=== PATIENT | female | born 1980 | race Caucasian/White ===

== ENCOUNTER → 2019-05-10 16:38 | Outpatient (CLI) | payer OTHER, MEDICAID, SELFPAY ==
--- NOTE | 2019-05-10 16:41 | DI.RAD.S_ITS ---
PROCEDURE: XR CERVICAL SPINE 2V OR 3V INDICATIONS: neck pain TECHNIQUE: 3 view(s) of the cervical spine were acquired. COMPARISON: None. FINDINGS: Bones: No fractures or dislocations to the T1 level. The lateral masses of C1 appear intact on the odontoid view. No suspicious bony lesions. Soft tissues: No prevertebral soft tissue swelling. IMPRESSION: Normal for age, source of current numbness and tingling symptoms is not seen. Depending on the clinical status followup by MR scanning may be warranted. Minimal degenerative disc disease is noted at C5-6 and C6-7, comprised of only a very slight degree of disc height reduction. This does not exclude the presence of a disc herniation, however. Dictated by: Theron Greenwood M.D. on 05/10/2019 at 21:08 Approved by: Theron Greenwood M.D. on 05/10/2019 at 21:09
== END ==
PROVIDERS: PCP Family Medicine; Visit Provider Registered Nurse
DX: G89.29 Other chronic pain (principal); M50.322 Other cervical disc degeneration at C5-C6 level; M50.323 Other cervical disc degeneration at C6-C7 level
CPT/HCPCS: 72040

== ENCOUNTER 2019-05-18 12:38 | Observation (INO) | payer OTHER, MEDICAID, SELFPAY ==
[2019-05-18] VITALS (14 sets, daily range): BP systolic 111–137; BP diastolic 69–85; PULSE 65–120; RESP 12–18; TEMP 36.1–37.3; O2SAT 93–100; BMI 31.6
--- NOTE | 2019-05-18 | PATH_ITS ---
[facility] Accession Number: [id number] . 01 Material submitted: . appendix - APPENDIX . 01 Clinical history: . NAUSEA, VOMITING AND RIGHT LOWER ABDOMINAL PAIN . 02 Diagnosis: Appendix, Appendectomy: Severe acute appendicitis with transmural suppurative inflammation and serositis, consistent with perforation. MRV/05/22/2019 . 02 Electronically signed: . Ken Mcfarlane MD, PhD, Pathologist NPI- [id number] . 01 Gross description: . Received in formalin, labeled appendix, is an intact appendix (length-9.2 cm, diameter-up to 1.2 cm) with thomas-christina dull focally exudate covered serosa and mesoappendix (up to 2.7 cm in depth). The resection margin is received stapled. The lumen contains brown solid soft material. The wall is up to 0.2 cm thick. No nodules, masses or lesion are identified. The resection margin is inked black. Section code: (A1) resection margin en face and three additional customer contact representative serial sections; (A2) one-half of the bivalved tip. ([id number]) /MRV . 02 Pathologist provided ICD-10: K35.20 . 02 CPT . 872537 Performed at: 01 [facility] [address], [place], [place] [id number] MD Johnny Cook MD Phone: [phone] Performed at: [address] [facility] [address] [place], [place] [id number] MD Jayshree Barr MD Phone: [phone]
--- NOTE | 2019-05-18 12:54 | ED.ABDPAIN ---
HPI - Abdominal Pain <Guera PringleCONY - Last Filed: 05/18/19 18:30> General Chief Complaint: Abdominal Pain Stated Complaint: NAUSEA VOMTING AND RIGHT LOWER ABDOMINAL PAIN Time Seen by Provider: 05/18/19 12:42 Source: patient Mode of arrival: ambulatory Limitations: no limitations History of Present Illness HPI narrative: 39-year-old female with a history of depression, DDD,, spondylitis, presents emergency department today complaining of right lower quadrant pain starting around midnight last night. She reports associated nausea, vomiting, and a few episodes of diarrhea. She has tried taking Mylanta but was unable to keep that down, she also tried taking meclizine but also vomited afterwards. She reports chills, did not measure her temperature last night. She states the pain is a dull aching constant 8/10 that is worse with palpation and movement. She denies any major abdominal surgeries and states that she still has her appendix. She denies chest pain, shortness of breath, recent illness, sick contacts, dysuria, constipation, syncope, or history of bowel problems. Additionally, she states that her boyfriend has had the same dinner that she has had and is not feeling ill. MD complaint: abdominal pain Onset (ago): hour(s) Pain Consistency: constant Location: RLQ Severity: moderate Quality: aching Radiation: none Migration to: no migration Relieving factors: nothing Exacerbating factors: movement Related Data Home Medications Medication Instructions Recorded Confirmed medroxyprogesterone 150 mg IM [id number] #0 03/07/11 05/18/19 doxepin 10 mg capsule 20 mg PO BEDTIME cap MDD anxiety 05/10/19 05/18/19 duloxetine 60 mg capsule,delayed 60 mg PO DAILY 05/10/19 05/18/19 release mometasone 50 mcg/actuation nasal 2 spray NASAL DAILY 05/10/19 05/18/19 spray topiramate 25 mg tablet 50 mg PO QPM tab 05/10/19 05/18/19 cetirizine 10 mg PO DAILY PRN 05/18/19 05/18/19 cholecalciferol (vitamin D3) 1 tab PO DAILY 05/18/19 05/18/19 [Vitamin D3] cyclobenzaprine 10 mg PO BID PRN 05/18/19 05/18/19 multivitamin 1 tab PO DAILY 05/18/19 05/18/19 Allergies Allergy/AdvReac Type Severity Reaction Status Date / Time red dye Allergy Verified 05/18/19 12:43 Review of Systems <CONY Sanchez - Last Filed: 05/18/19 18:30> Review of Systems REVIEW OF SYSTEMS: GENERAL: Denies fever, chills, malaise, or wt. loss. HENT: No head trauma, sore throat, or dysphagia. EYES: No loss of vision, double vision, eye pain, or irritation. CARDIOVASCULAR: No chest pain, palpitations, or orthopnea. RESPIRATORY: No shortness of breath or cough. GASTROINTESTINAL: Complains of RLQ abdominal pain nausea, and vomiting, see HPI GENITOURINARY: No flank pain, urinary incontinence, hesitancy, frequency, or dysuria. No vaginal discharge or dyspareunia. Denies concerns for STIs MUSCULOSKELETAL: No pain, weakness, or trauma. INTEGUMENTARY: No rash, lesions, or pruritus. NEURO: No numbness, tingling, memory loss, confusion, or headaches. PSYCH: No behavior or mood changes. PFSH <CONY Sanchez - Last Filed: 05/18/19 18:30> Medical History No significant medical problems (Acute) Social History household members: family Smoking Status: Former smoker Social History household members: family Smoking Status: Former smoker Exam <CONY Sanchez - Last Filed: 05/18/19 18:30> Initial Vital Signs Initial Vital Signs: Vital Signs Temperature 97.9 F 05/18/19 12:44 Pulse Rate 97 H 05/18/19 12:44 Respiratory Rate 16 05/18/19 12:44 Blood Pressure 137/78 05/18/19 12:44 Pulse Oximetry 99 05/18/19 12:44 PHYSICAL EXAMINATION: GENERAL: Well groomed, alert, and cooperative. Answers questions promptly and appropriately. Vital signs noted. HENT: Normocephalic, atraumatic. Hearing intact. Oral mucosa is pink and moist. EYES: Conjunctiva pink, sclera white, no periorbital swelling. CARDIOVASCULAR: S1 and S2 sounds normal. Regular rate and rhythm, no murmurs, clicks, or bruits. No pedal edema. RESPIRATORY: Normal respiratory rate, trachea midline, airway patent. No stridor, nasal flaring or accessory muscle use. Lungs are clear in all platt without wheeze, rhonchi, or crackles. GASTROINTESTINAL: Bowel sounds normoactive. Abdomen is soft with significant tenderness to right lower quadrant, and mild tenderness to left lower quadrant. Slight rebound tenderness, pain producing right lower quadrant with tapping of heel. Positive psoas sign. No organomegaly, no palpable masses. GENITALURINARY: No flank tenderness. MUSCULOSKELETAL: Normal gait and coordination. Equal tone and mass bilaterally. EXTREMITIES: CMS intact, no pedal edema. SKIN: Warm, dry, soft, appropriate color for ethnicity. No lesions, rashes, or wounds. NEURO: Alert and Oriented X 3. Good coordination. No ataxia, or sensory deficits, or cognitive issues. PSYCH: Appropriate affect and mood. <Beatriz Anguiano DO - Last Filed: 05/19/19 07:27> Initial Vital Signs Initial Vital Signs: Vital Signs Temperature 97.9 F 05/18/19 12:44 Pulse Rate 97 H 05/18/19 12:44 Respiratory Rate 16 05/18/19 12:44 Blood Pressure 137/78 05/18/19 12:44 Pulse Oximetry 99 05/18/19 12:44 Course <CONY Sanchez - Last Filed: 05/18/19 18:30> Course Narrative: Spoke with radiologist on the phone after he read the CT, surgeon was then immediately consult. I spoke with his nurse around [address] Melton was currently in surgery. Orders Ordered: ED Orders 05/19/19 05:58 Complete Blood Count AUTO DIFF DAILY Hydrocodone Bitart/Acetaminophen ([place] 10/325) 1 tab PO Q4HR PRN PRN Reason: Pain, Moderate (4-6) Last Admin: 05/19/19 05:03 Dose: 1 tab Duloxetine HCl (Cymbalta) 60 mg PO DAILY [facility] Enoxaparin Sodium (Lovenox) 40 mg SUBCUT DAILY [facility] Ibuprofen (Advil) 400 mg PO Q8HR PRN PRN Reason: Pain, Mild (1-3) Mometasone Furoate (Nasonex) 2 spray NASAL DAILY [facility] Morphine Sulfate (Morphine) 2 mg IV Q4HR PRN PRN Reason: Pain, Moderate (4-6) Multivitamins (Tab-A-Marlin) 1 tab PO DAILY [facility] Ondansetron HCl (Zofran) 4 mg IV Q6HR PRN PRN Reason: Nausea And Vomiting Last Admin: 05/19/19 00:44 Dose: 4 mg Topiramate (Topamax) 50 mg PO QPM [facility] Discontinued Medications Acetaminophen (Tylenol) 325 mg PO NOW PRN PRN Reason: Pain, Mild (1-3) Stop: 05/19/19 00:14 Bupivacaine HCl/Epinephrine Bitart (Sensorcaine 0.5% W/ Epi (Pf)) 30 ml INJ NOW ONE Stop: 05/18/19 21:57 Last Admin: 05/18/19 21:57 Dose: 10 ml Cyclobenzaprine HCl (Flexeril) 10 mg PO BID PRN PRN Reason: severe spasms Doxepin HCl (Sinequan) 20 mg PO BEDTIME [facility] Last Admin: 05/19/19 01:05 Dose: Not Given Fentanyl (Sublimaze) 50 mcg IV Q5MIN PRN PRN Reason: Pain, Moderate (4-6) Hydromorphone HCl (Dilaudid) 0.25 mg IV Q5MIN PRN PRN Reason: Pain, Mild (1-3) Sodium Chloride (Normal Saline 0.9%) 1,000 mls @ 150 mls/hr IV CONT [facility] Last Infusion: 05/18/19 17:16 Dose: 150 mls/hr Admin: 05/18/19 13:49 Dose: 150 mls/hr Cefotetan Disodium/Dextrose (Cefotan) 2 gm in 50 mls @ 100 mls/hr IV NOW ONE Stop: 05/18/19 16:00 Last Infusion: 05/18/19 16:33 Dose: 0 mls/hr Admin: 05/18/19 15:48 Dose: 100 mls/hr Lactated Ringer's (Lactated Ringers) 1,000 mls @ 100 mls/hr IV CONT [facility] Last Infusion: 05/18/19 22:47 Dose: 0 mls/hr Admin: 05/18/19 20:32 Dose: 100 mls/hr Admin: 05/18/19 20:12 Dose: Not Given Piperacillin/Tazobactam/Dextrose (Zosyn) 3.375 gm in 50 mls @ 100 mls/hr IV INTRA-OP ONE Stop: 05/18/19 19:26 Last Infusion: 05/18/19 21:50 Dose: 0 mls/hr Admin: 05/18/19 21:32 Dose: 100 mls/hr Admin: 05/18/19 21:20 Dose: Not Given Lactated Ringer's (Lactated Ringers) 1,000 mls @ 42 mls/hr IV CONT RUBI Last Admin: 05/19/19 01:05 Dose: Not Given Ketorolac Tromethamine (Toradol) 30 mg IV NOW ONE Stop: 05/18/19 12:53 Last Admin: 05/18/19 13:49 Dose: 30 mg Loratadine (Claritin) 10 mg PO DAILY RUBI Morphine Sulfate (Morphine) 4 mg IV NOW ONE Stop: 05/18/19 17:00 Last Admin: 05/18/19 17:10 Dose: 4 mg Non-Formulary Medication (Cholecalciferol (Vitamin D3) [Vitamin D3]) 1 tab PO DAILY [facility] Ondansetron HCl (Zofran) 4 mg IV NOW ONE Stop: 05/18/19 12:53 Last Admin: 05/18/19 13:49 Dose: 4 mg Ondansetron HCl (Zofran) 4 mg IV NOW PRN PRN Reason: Nausea And Vomiting Oxycodone/Acetaminophen (Percocet 5/325) 1 tab PO Q30MIN PRN PRN Reason: Mild or moderate pain Reevaluation(s) Reevaluation #1: Patient's nausea and pain resolved after administration of Zofran and Toradol. It later return within was decreased with administration of morphine. Due to the presence of surrounding inflammation and the fact that Dr. Melton was in surgery for a while, patient was given IV cefotetan for surgical prophylaxis. Consultations Consultation #1: Dr. Melton was consulted for bertin. Consultation #2: Patient was staffed with Dr. Anguiano Vital Signs - 8 hr 05/18/19 23:45 05/19/19 00:15 05/19/19 01:15 Temperature 97.0 F L 97.0 F L 97.2 F L Pulse Rate 65 70 73 Respiratory Rate 16 16 16 Blood Pressure 116/72 122/80 121/63 Pulse Oximetry 97 97 99 05/19/19 02:15 05/19/19 05:21 Temperature 97.7 F 97.5 F L Pulse Rate 86 60 Respiratory Rate 18 18 Blood Pressure 116/58 L 102/64 Pulse Oximetry 100 98 <Beatriz Anguiano, DO - Last Filed: 05/19/19 07:27> Orders Ordered: ED Orders 05/19/19 05:58 Complete Blood Count AUTO DIFF DAILY Hydrocodone Bitart/Acetaminophen ([place] 10/325) 1 tab PO Q4HR PRN PRN Reason: Pain, Moderate (4-6) Last Admin: 05/19/19 05:03 Dose: 1 tab Duloxetine HCl (Cymbalta) 60 mg PO DAILY [facility] Enoxaparin Sodium (Lovenox) 40 mg SUBCUT DAILY [facility] Ibuprofen (Advil) 400 mg PO Q8HR PRN PRN Reason: Pain, Mild (1-3) Mometasone Furoate (Nasonex) 2 spray NASAL DAILY [facility] Morphine Sulfate (Morphine) 2 mg IV Q4HR PRN PRN Reason: Pain, Moderate (4-6) Multivitamins (Tab-A-Marlin) 1 tab PO DAILY [facility] Ondansetron HCl (Zofran) 4 mg IV Q6HR PRN PRN Reason: Nausea And Vomiting Last Admin: 05/19/19 00:44 Dose: 4 mg Topiramate (Topamax) 50 mg PO QPM [facility] Discontinued Medications Acetaminophen (Tylenol) 325 mg PO NOW PRN PRN Reason: Pain, Mild (1-3) Stop: 05/19/19 00:14 Bupivacaine HCl/Epinephrine Bitart (Sensorcaine 0.5% W/ Epi (Pf)) 30 ml INJ NOW ONE Stop: 05/18/19 21:57 Last Admin: 05/18/19 21:57 Dose: 10 ml Cyclobenzaprine HCl (Flexeril) 10 mg PO BID PRN PRN Reason: severe spasms Doxepin HCl (Sinequan) 20 mg PO BEDTIME [facility] Last Admin: 05/19/19 01:05 Dose: Not Given Fentanyl (Sublimaze) 50 mcg IV Q5MIN PRN PRN Reason: Pain, Moderate (4-6) Hydromorphone HCl (Dilaudid) 0.25 mg IV Q5MIN PRN PRN Reason: Pain, Mild (1-3) Sodium Chloride (Normal Saline 0.9%) 1,000 mls @ 150 mls/hr IV CONT RUBI Last Infusion: 05/18/19 17:16 Dose: 150 mls/hr Admin: 05/18/19 13:49 Dose: 150 mls/hr Cefotetan Disodium/Dextrose (Cefotan) 2 gm in 50 mls @ 100 mls/hr IV NOW ONE Stop: 05/18/19 16:00 Last Infusion: 05/18/19 16:33 Dose: 0 mls/hr Admin: 05/18/19 15:48 Dose: 100 mls/hr Lactated Ringer's (Lactated Ringers) 1,000 mls @ 100 mls/hr IV CONT RUBI Last Infusion: 05/18/19 22:47 Dose: 0 mls/hr Admin: 05/18/19 20:32 Dose: 100 mls/hr Admin: 05/18/19 20:12 Dose: Not Given Piperacillin/Tazobactam/Dextrose (Zosyn) 3.375 gm in 50 mls @ 100 mls/hr IV INTRA-OP ONE Stop: 05/18/19 19:26 Last Infusion: 05/18/19 21:50 Dose: 0 mls/hr Admin: 05/18/19 21:32 Dose: 100 mls/hr Admin: 05/18/19 21:20 Dose: Not Given Lactated Ringer's (Lactated Ringers) 1,000 mls @ 42 mls/hr IV CONT RUBI Last Admin: 05/19/19 01:05 Dose: Not Given Ketorolac Tromethamine (Toradol) 30 mg IV NOW ONE Stop: 05/18/19 12:53 Last Admin: 05/18/19 13:49 Dose: 30 mg Loratadine (Claritin) 10 mg PO DAILY [facility] Morphine Sulfate (Morphine) 4 mg IV NOW ONE Stop: 05/18/19 17:00 Last Admin: 05/18/19 17:10 Dose: 4 mg Non-Formulary Medication (Cholecalciferol (Vitamin D3) [Vitamin D3]) 1 tab PO DAILY [facility] Ondansetron HCl (Zofran) 4 mg IV NOW ONE Stop: 05/18/19 12:53 Last Admin: 05/18/19 13:49 Dose: 4 mg Ondansetron HCl (Zofran) 4 mg IV NOW PRN PRN Reason: Nausea And Vomiting Oxycodone/Acetaminophen (Percocet 5/325) 1 tab PO Q30MIN PRN PRN Reason: Mild or moderate pain Vital Signs - 8 hr 05/18/19 23:45 05/19/19 00:15 05/19/19 01:15 Temperature 97.0 F L 97.0 F L 97.2 F L Pulse Rate 65 70 73 Respiratory Rate 16 16 16 Blood Pressure 116/72 122/80 121/63 Pulse Oximetry 97 97 99 05/19/19 02:15 05/19/19 05:21 Temperature 97.7 F 97.5 F L Pulse Rate 86 60 Respiratory Rate 18 18 Blood Pressure 116/58 L 102/64 Pulse Oximetry 100 98 MDM - Abdominal Pain <CONY Sanchez - Last Filed: 05/18/19 18:30> Medical Records Attestation: I reviewed the patient's medical records. Lab Data Attestation: I reviewed the patient's lab results. Result diagrams: 05/19/19 05:58 05/18/19 13:00 Lab Results 05/18/19 05/18/19 05/18/19 Range/Units 13:00 13:00 13:00 WBC 16.3 H (4.5-11.0) X10^3/uL RBC 4.69 (4.0-5.2) X10^6/uL Hgb 15.8 (12.0-16.0) g/dL Hct 45.8 (36-46) % MCV 97.7 (80-100) fL MCH 33.8 (26-34) PG MCHC 34.5 (30-36) % RDW 13.9 (11.6-14.8) % Plt Count 361 (150-400) X10^3/uL Neut % (Auto) 85.3 H (50-75) % Lymph % (Auto) 7.0 L (25-40) % [place] % (Auto) 7.5 (3-14) % Eos % (Auto) 0.0 L (2-4) % Baso % (Auto) 0.2 (0-2) % Neut # (Auto) 14097 H (4372-1990) /uL Lymph # (Auto) 1100 (6315-6441) /uL [place] # (Auto) 1200 H (0-900) /uL Eos # (Auto) 0 (0-450) /uL Baso # (Auto) 0 (0-100) /uL Sodium 139 (137-145) mmol/L Potassium 3.6 (3.4-5.1) mmol/L Chloride 102 (98-107) mmol/L Carbon Dioxide 25 (22-32) mmol/L BUN 10 (7-17) mg/dL Creatinine 0.80 (0.52-1.04) mg/dL Estimated GFR > 60.0 (>60) mL/min BUN/Creatinine Ratio 12.5 (6-22) Glucose 118 H (70-100) mg/dL Calcium 9.7 (8.4-10.2) mg/dL Total Bilirubin 1.8 H (0.2-1.3) mg/dL AST 23 (14-36) IU/L ALT 40 (9-52) IU/L Alkaline Phosphatase 71 (38-126) U/L Total Protein 7.8 (6.3-8.2) g/dL Albumin 4.7 (3.5-5.0) g/dL Globulin 3.1 (1.7-4.1) g/dL Albumin/Globulin Ratio 1.5 (1.0-2.8) Lipase 53 (23-300) U/L Urine RBC None seen (0-5/HPF) Urine WBC 5-10/hpf H (0-5/HPF) Ur Squamous Epith Cells 5-10 /hpf H (0-5/HPF) Urine Bacteria Many (>30) H (None) Ur Culture Indicated? Cult not indicated Urine Test (Negative) 05/18/19 05/19/19 Range/Units 13:00 05:58 WBC 16.9 H (4.5-11.0) X10^3/uL RBC 4.24 (4.0-5.2) X10^6/uL Hgb 14.3 (12.0-16.0) g/dL Hct 42.3 (36-46) % MCV 99.8 (80-100) fL MCH 33.6 (26-34) PG MCHC 33.7 (30-36) % RDW 13.7 (11.6-14.8) % Plt Count 318 (150-400) X10^3/uL Neut % (Auto) 94.5 H (50-75) % Lymph % (Auto) 3.7 L (25-40) % [place] % (Auto) 1.7 L (3-14) % Eos % (Auto) 0.0 L (2-4) % Baso % (Auto) 0.1 (0-2) % Neut # (Auto) 45901 H (8468-2812) /uL Lymph # (Auto) 600 L (5020-4037) /uL [place] # (Auto) 300 (0-900) /uL Eos # (Auto) 0 (0-450) /uL Baso # (Auto) 0 (0-100) /uL Sodium (137-145) mmol/L Potassium (3.4-5.1) mmol/L Chloride (98-107) mmol/L Carbon Dioxide (22-32) mmol/L BUN (7-17) mg/dL Creatinine (0.52-1.04) mg/dL Estimated GFR (>60) mL/min BUN/Creatinine Ratio (6-22) Glucose (70-100) mg/dL Calcium (8.4-10.2) mg/dL Total Bilirubin (0.2-1.3) mg/dL AST (14-36) IU/L ALT (9-52) IU/L Alkaline Phosphatase (38-126) U/L Total Protein (6.3-8.2) g/dL Albumin (3.5-5.0) g/dL Globulin (1.7-4.1) g/dL Albumin/Globulin Ratio (1.0-2.8) Lipase (23-300) U/L Urine RBC (0-5/HPF) Urine WBC (0-5/HPF) Ur Squamous Epith Cells (0-5/HPF) Urine Bacteria (None) Ur Culture Indicated? Urine Test Negative (Negative) Point of care testing: Point of Care Testing Test Results Not applicable Glucose POC 86 Urine Dip Bedside Urine Glucose Negative Bedside Urine Bilirubin - Negative Bedside Urine Ketone +++ 80 Urine Specific [place] 1.010 Bedside Urine Occult Blood - Negative Bedside Urine pH 8.5 Bedside Urine Protein + 30 Bedside Urine Urobilinogen 1+ 2mg Bedside Urine Nitrite - Negative Bedside Urine Leukocytes +/- [address] scan - abdomen: Radiologist's impression: [address] [address] [address] Scan Report Signed Patient: Irina Florian LMR#: [id number] : 1980Acct:[id number] Age/Sex: 39 / FDate of Service: 05/18/19 Loc: ED Accession Number: [id number] Procedure: CT abdomen pelvis w con Ordering Provider: Guera Pringle PROCEDURE: CT ABDOMEN PELVIS W CON INDICATIONS: RLQ pain, n/v/d, chills TECHNIQUE: After the administration of intravenous contrast, 5 mm thick sections acquired from the diaphragm to the symphysis. 5 mm coronal and sagittal reformats were acquired. For radiation dose reduction, the following was used: automated exposure control, adjustment of mA and/or kV according to patient size. COMPARISON: None. FINDINGS: Image quality: Excellent. ABDOMEN: Lung bases: Lung bases are clear. Heart size is normal. Solid organs: Liver is normal in size and enhancement. There are several subcentimeter right hepatic lobe hypodensities, nonspecific but likely small cysts or hemangiomas. Gallbladder appears normal. Biliary system is non dilated. Pancreas enhances normally. Spleen is normal in size and enhancement. No adrenal nodules. Kidneys demonstrate normal size and enhancement, without hydronephrosis. Peritoneum and bowel: Bowel loops demonstrate normal wall thickness and caliber. No free fluid or air. Nodes and vessels: No retroperitoneal or mesenteric adenopathy by size criteria. Aorta and inferior vena cava are normal in size. Miscellaneous: No ventral hernias. PELVIS: Genitourinary: Bladder wall thickness is normal. Miscellaneous: No inguinal hernias or adenopathy. At the right lower quadrant there is definite acute appendicitis, and the appendix contains several subtle appendicoliths which reportedly increases the risk of early perforation in this clinical setting. Bones: No suspicious bony lesions. No vertebral body compression fractures. IMPRESSION: Definite acute appendicitis without periappendiceal abscess. Several small appendicoliths are seen within the appendix, and surgical consultation is recommended. Dictated by: Theron Greenwood M.D. on 05/18/2019 at 14:20 Approved by: Theron Greenwood M.D. on 05/18/2019 at 14:24 MDM Narrative Medical decision making narrative: High suspicion of appendicitis (appendicitis reported on CT, elevated white blood cell count, acute abdominal exam, reports of nausea and vomiting), I also suspect that patient may have a urinary tract infection as well (see urinalysis). Less likely sepsis due to lack of systemic symptoms such as fever, hypotension, or acutely ill appearance. Less likely tubal due to negative test. <Beatriz Anguiano DO - Last Filed: 05/19/19 07:27> Lab Data Lab Results 05/18/19 05/18/19 05/18/19 Range/Units 13:00 13:00 13:00 WBC 16.3 H (4.5-11.0) X10^3/uL RBC 4.69 (4.0-5.2) X10^6/uL Hgb 15.8 (12.0-16.0) g/dL Hct 45.8 (36-46) % MCV 97.7 (80-100) fL MCH 33.8 (26-34) PG MCHC 34.5 (30-36) % RDW 13.9 (11.6-14.8) % Plt Count 361 (150-400) X10^3/uL Neut % (Auto) 85.3 H (50-75) % Lymph % (Auto) 7.0 L (25-40) % [place] % (Auto) 7.5 (3-14) % Eos % (Auto) 0.0 L (2-4) % Baso % (Auto) 0.2 (0-2) % Neut # (Auto) 72012 H (7895-6389) /uL Lymph # (Auto) 1100 (7981-8335) /uL [place] # (Auto) 1200 H (0-900) /uL Eos # (Auto) 0 (0-450) /uL Baso # (Auto) 0 (0-100) /uL Sodium 139 (137-145) mmol/L Potassium 3.6 (3.4-5.1) mmol/L Chloride 102 (98-107) mmol/L Carbon Dioxide 25 (22-32) mmol/L BUN 10 (7-17) mg/dL Creatinine 0.80 (0.52-1.04) mg/dL Estimated GFR > 60.0 (>60) mL/min BUN/Creatinine Ratio 12.5 (6-22) Glucose 118 H (70-100) mg/dL Calcium 9.7 (8.4-10.2) mg/dL Total Bilirubin 1.8 H (0.2-1.3) mg/dL AST 23 (14-36) IU/L ALT 40 (9-52) IU/L Alkaline Phosphatase 71 (38-126) U/L Total Protein 7.8 (6.3-8.2) g/dL Albumin 4.7 (3.5-5.0) g/dL Globulin 3.1 (1.7-4.1) g/dL Albumin/Globulin Ratio 1.5 (1.0-2.8) Lipase 53 (23-300) U/L Urine RBC None seen (0-5/HPF) Urine WBC 5-10/hpf H (0-5/HPF) Ur Squamous Epith Cells 5-10 /hpf H (0-5/HPF) Urine Bacteria Many (>30) H (None) Ur Culture Indicated? Cult not indicated Urine Test (Negative) 05/18/19 05/19/19 Range/Units 13:00 05:58 WBC 16.9 H (4.5-11.0) X10^3/uL RBC 4.24 (4.0-5.2) X10^6/uL Hgb 14.3 (12.0-16.0) g/dL Hct 42.3 (36-46) % MCV 99.8 (80-100) fL MCH 33.6 (26-34) PG MCHC 33.7 (30-36) % RDW 13.7 (11.6-14.8) % Plt Count 318 (150-400) X10^3/uL Neut % (Auto) 94.5 H (50-75) % Lymph % (Auto) 3.7 L (25-40) % [place] % (Auto) 1.7 L (3-14) % Eos % (Auto) 0.0 L (2-4) % Baso % (Auto) 0.1 (0-2) % Neut # (Auto) 34053 H (1777-2461) /uL Lymph # (Auto) 600 L (0453-7158) /uL [place] # (Auto) 300 (0-900) /uL Eos # (Auto) 0 (0-450) /uL Baso # (Auto) 0 (0-100) /uL Sodium (137-145) mmol/L Potassium (3.4-5.1) mmol/L Chloride (98-107) mmol/L Carbon Dioxide (22-32) mmol/L BUN (7-17) mg/dL Creatinine (0.52-1.04) mg/dL Estimated GFR (>60) mL/min BUN/Creatinine Ratio (6-22) Glucose (70-100) mg/dL Calcium (8.4-10.2) mg/dL Total Bilirubin (0.2-1.3) mg/dL AST (14-36) IU/L ALT (9-52) IU/L Alkaline Phosphatase (38-126) U/L Total Protein (6.3-8.2) g/dL Albumin (3.5-5.0) g/dL Globulin (1.7-4.1) g/dL Albumin/Globulin Ratio (1.0-2.8) Lipase (23-300) U/L Urine RBC (0-5/HPF) Urine WBC (0-5/HPF) Ur Squamous Epith Cells (0-5/HPF) Urine Bacteria (None) Ur Culture Indicated? Urine Test Negative (Negative) Point of care testing: Point of Care Testing Test Results Not applicable Glucose POC 86 Urine Dip Bedside Urine Glucose Negative Bedside Urine Bilirubin - Negative Bedside Urine Ketone +++ 80 Urine Specific [place] 1.010 Bedside Urine Occult Blood - Negative Bedside Urine pH 8.5 Bedside Urine Protein + 30 Bedside Urine Urobilinogen 1+ 2mg Bedside Urine Nitrite - Negative Bedside Urine Leukocytes +/- 15 Esterase Discharge Plan Departure Patient Disposition: Admitted as Observation Clinical Impression: Appendicitis Qualifiers: Appendicitis type: acute appendicitis Acute appendicitis type: unspecified acute appendicitis type Qualified Code(s): K35.80 - Unspecified acute appendicitis Discharge Date/Time: 05/18/19 17:33 Interventions: ED Discharge Assessment Last Done: 05/18/19 17:33 Admit Date/Time: 05/18/19 16:25 Admit Provider: Shady Melton <Beatriz Anguiano DO - Last Filed: 05/19/19 07:27> Cosign ED Attending Deb Attestation: I was immediately available in the department for consultation. Documentation has been reviewed. I agree with assessment and plan.
--- NOTE | 2019-05-18 12:57 | ED_ITS ---
HPI - Abdominal Pain <Guera PringleCONY - Last Filed: 05/18/19 18:30> General Chief Complaint: Abdominal Pain Stated Complaint: NAUSEA VOMTING AND RIGHT LOWER ABDOMINAL PAIN Time Seen by Provider: 05/18/19 12:42 Source: patient Mode of arrival: ambulatory Limitations: no limitations History of Present Illness HPI narrative: 39-year-old female with a history of depression, DDD,, spondyli tis, presents emergency department today complaining of right lower quadrant pain starting around midnight last night. She reports associated nausea, vomiting, and a few episodes of diarrhea. She has tried taking Mylanta but was unable to keep that down, she also tried taking meclizine but also vomited afterwards. She reports chills, did not measure her temperature last night. She states the pain is a dull aching constant 8/10 that is worse with palpation and movement. She denies any major abdominal surgeries and states that she still has her appendix. She denies chest pain, shortness of breath, recent illness, sick contacts, dysuria, constipation, syncope, or history of bowel problems. Additionally, she states that her boyfriend has had the same dinner that she has had and is not feeling ill. MD complaint: abdominal pain Onset (ago): hour(s) Pain Consistency: constant Location: RLQ Severity: moderate Quality: aching Radiation: none Migration to: no migration Relieving factors: nothing Exacerbating factors: movement Related Data Home Medications Medication Instructions Recorded Confirmed medroxyprogesterone 150 mg IM [id number] #0 03/07/11 05/18/19 doxepin 10 mg capsule 20 mg PO BEDTIME cap MDD anxiety 05/10/19 05/18/19 duloxetine 60 mg capsule,delayed 60 mg PO DAILY 05/10/19 05/18/19 release mometasone 50 mcg/actuation nasal 2 spray NASAL DAILY 05/10/19 05/18/19 spray topiramate 25 mg tablet 50 mg PO QPM tab 05/10/19 05/18/19 cetirizine 10 mg PO DAILY PRN 05/18/19 05/18/19 cholecalciferol (vitamin D3) 1 tab PO DAILY 05/18/19 05/18/19 [Vitamin D3] cyclobenzaprine 10 mg PO BID PRN 08/01/19 08/01/19 multivitamin 1 tab PO DAILY 05/18/19 05/18/19 Allergies Allergy/AdvReac Type Severity Reaction Status Date / Time red dye Allergy Verified 05/18/19 12:43 Review of Systems <CONY Sanchez - Last Filed: 05/18/19 18:30> Review of Systems REVIEW OF SYSTEMS: GENERAL: Denies fever, chills, malaise, or wt. loss. HENT: No head trauma, sore throat, or dysphagia. EYES: No loss of vision, double vision, eye pain, or irritation. CARDIOVASCULAR: No chest pain, palpitations, or orthopnea. RESPIRATORY: No shortness of breath or cough. GASTROINTESTINAL: Complains of RLQ abdominal pain nausea, and vomiting, see HPI GENITOURINARY: No flank pain, urinary incontinence, hesitancy, frequency, or dysuria. No vaginal discharge or dyspareunia. Denies concerns for STIs MUSCULOSKELETAL: No pain, weakness, or trauma. INTEGUMENTARY: No rash, lesions, or pruritus. NEURO: No numbness, tingling, memory loss, confusion, or headaches. PSYCH: No behavior or mood changes. PFSH <CONY Sanchez - Last Filed: 05/18/19 18:30> Medical History No significant medical problems (Acute) Social History household members: family Smoking Status: Former smoker Social History household members: family Smoking Status: Former smoker Exam <CONY Sanchez - Last Filed: 05/18/19 18:30> Initial Vital Signs Initial Vital Signs: Vital Signs Temperature 97.9 F 05/18/19 12:44 Pulse Rate 97 H 05/18/19 12:44 Respiratory Rate 16 05/18/19 12:44 Blood Pressure 137/78 05/18/19 12:44 Pulse Oximetry 99 05/18/19 12:44 PHYSICAL EXAMINATION: GENERAL: Well groomed, alert, and cooperative. Answers questions promptly and appropriately. Vital signs noted. HENT: Normocephalic, atraumatic. Hearing intact. Oral mucosa is pink and moist. EYES: Conjunctiva pink, sclera white, no periorbital swelling. CARDIOVASCULAR: S1 and S2 sounds normal. Regular rate and rhythm, no murmurs, clicks, or bruits. No pedal edema. RESPIRATORY: Normal respiratory rate, trachea midline, airway patent. No stridor, nasal flaring or accessory muscle use. Lungs are clear in all platt without wheeze, rhonchi, or crackles. GASTROINTESTINAL: Bowel sounds normoactive. Abdomen is soft with significant tenderness to right lower quadrant, and mild tenderness to left lower quadrant. Slight rebound tenderness, pain producing right lower quadrant with tapping of heel. Positive psoas sign. No organomegaly, no palpable masses. GENITALURINARY: No flank tenderness. MUSCULOSKELETAL: Normal gait and coordination. Equal tone and mass bilaterally. EXTREMITIES: CMS intact, no pedal edema. SKIN: Warm, dry, soft, appropriate color for ethnicity. No lesions, rashes, or wounds. NEURO: Alert and Oriented X 3. Good coordination. No ataxia, or sensory deficits, or cognitive issues. PSYCH: Appropriate affect and mood. <Beatriz Anguiano DO - Last Filed: 05/19/19 07:27> Initial Vital Signs Initial Vital Signs: Vital Signs Temperature 97.9 F 05/18/19 12:44 Pulse Rate 97 H 05/18/19 12:44 Respiratory Rate 16 05/18/19 12:44 Blood Pressure 137/78 05/18/19 12:44 Pulse Oximetry 99 05/18/19 12:44 Course <CONY Sanchez - Last Filed: 05/18/19 18:30> Course Narrative: Spoke with radiologist on the phone after he read the CT, surgeon was then immediately consult. I spoke with his nurse around [address] Melton was currently in surgery. Orders Ordered: ED Orders 05/19/19 05:58 Complete Blood Count AUTO DIFF DAILY Hydrocodone Bitart/Acetaminophen (Eagle 10/325) 1 tab PO Q4HR PRN PRN Reason: Pain, Moderate (4-6) Last Admin: 05/19/19 05:03 Dose: 1 tab Duloxetine HCl (Cymbalta) 60 mg PO DAILY [facility] Enoxaparin Sodium (Lovenox) 40 mg SUBCUT DAILY [facility] Ibuprofen (Advil) 400 mg PO Q8HR PRN PRN Reason: Pain, Mild (1-3) Mometasone Furoate (Nasonex) 2 spray NASAL DAILY [facility] Morphine Sulfate (Morphine) 2 mg IV Q4HR PRN PRN Reason: Pain, Moderate (4-6) Multivitamins (Tab-A-Marlin) 1 tab PO DAILY [facility] Ondansetron HCl (Zofran) 4 mg IV Q6HR PRN PRN Reason: Nausea And Vomiting Last Admin: 05/19/19 00:44 Dose: 4 mg Topiramate (Topamax) 50 mg PO QPM [facility] Discontinued Medications Acetaminophen (Tylenol) 325 mg PO NOW PRN PRN Reason: Pain, Mild (1-3) Stop: 05/19/19 00:14 Bupivacaine HCl/Epinephrine Bitart (Sensorcaine 0.5% W/ Epi (Pf)) 30 ml INJ NOW ONE Stop: 05/18/19 21:57 Last Admin: 05/18/19 21:57 Dose: 10 ml Cyclobenzaprine HCl (Flexeril) 10 mg PO BID PRN PRN Reason: severe spasms Doxepin HCl (Sinequan) 20 mg PO BEDTIME [facility] Last Admin: 05/19/19 01:05 Dose: Not Given Fentanyl (Sublimaze) 50 mcg IV Q5MIN PRN PRN Reason: Pain, Moderate (4-6) Hydromorphone HCl (Dilaudid) 0.25 mg IV Q5MIN PRN PRN Reason: Pain, Mild (1-3) Sodium Chloride (Normal Saline 0.9%) 1,000 mls @ 150 mls/hr IV CONT [facility] Last Infusion: 05/18/19 17:16 Dose: 150 mls/hr Admin: 05/18/19 13:49 Dose: 150 mls/hr Cefotetan Disodium/Dextrose (Cefotan) 2 gm in 50 mls @ 100 mls/hr IV NOW ONE Stop: 05/18/19 16:00 Last Infusion: 05/18/19 16:33 Dose: 0 mls/hr Admin: 05/18/19 15:48 Dose: 100 mls/hr Lactated Ringer's (Lactated Ringers) 1,000 mls @ 100 mls/hr IV CONT [facility] Last Infusion: 05/18/19 22:47 Dose: 0 mls/hr Admin: 05/18/19 20:32 Dose: 100 mls/hr Admin: 05/18/19 20:12 Dose: Not Given Piperacillin/Tazobactam/Dextrose (Zosyn) 3.375 gm in 50 mls @ 100 mls/hr IV INTRA-OP ONE Stop: 05/18/19 19:26 Last Infusion: 05/18/19 21:50 Dose: 0 mls/hr Admin: 05/18/19 21:32 Dose: 100 mls/hr Admin: 05/18/19 21:20 Dose: Not Given Lactated Ringer's (Lactated Ringers) 1,000 mls @ 42 mls/hr IV CONT [facility] Last Admin: 05/19/19 01:05 Dose: Not Given Ketorolac Tromethamine (Toradol) 30 mg IV NOW ONE Stop: 05/18/19 12:53 Last Admin: 05/18/19 13:49 Dose: 30 mg Loratadine (Claritin) 10 mg PO DAILY [facility] Morphine Sulfate (Morphine) 4 mg IV NOW ONE Stop: 05/18/19 17:00 Last Admin: 05/18/19 17:10 Dose: 4 mg Non-Formulary Medication (Cholecalciferol (Vitamin D3) [Vitamin D3]) 1 tab PO DAILY [facility] Ondansetron HCl (Zofran) 4 mg IV NOW ONE Stop: 05/18/19 12:53 Last Admin: 05/18/19 13:49 Dose: 4 mg Ondansetron HCl (Zofran) 4 mg IV NOW PRN PRN Reason: Nausea And Vomiting Oxycodone/Acetaminophen (Percocet 5/325) 1 tab PO Q30MIN PRN PRN Reason: Mild or moderate pain Reevaluation(s) Reevaluation #1: Patient's nausea and pain resolved after administration of Zo jun and Toradol. It later return within was decreased with administration of morphine. Due to the presence of surrounding inflammation and the fact that Dr. Melton was in surgery for a while, patient was given IV cefotetan for surgical prophylaxis. Consultations Consultation #1: Dr. Melton was consulted for bertin. Consultation #2: Patient was staffed with Dr. Anguiano Vital Signs - 8 hr 05/18/19 23:45 05/19/19 00:15 05/19/19 01:15 Temperature 97.0 F L 97.0 F L 97.2 F L Pulse Rate 65 70 73 Respiratory Rate 16 16 16 Blood Pressure 116/72 122/80 121/63 Pulse Oximetry 97 97 99 05/19/19 02:15 05/19/19 05:21 Temperature 97.7 F 97.5 F L Pulse Rate 86 60 Respiratory Rate 18 18 Blood Pressure 116/58 L 102/64 Pulse Oximetry 100 98 <Beatriz Anguiano, DO - Last Filed: 05/19/19 07:27> Orders Ordered: ED Orders 05/19/19 05:58 Complete Blood Count AUTO DIFF DAILY Hydrocodone Bitart/Acetaminophen (Eagle 10/325) 1 tab PO Q4HR PRN PRN Reason: Pain, Moderate (4-6) Last Admin: 05/19/19 05:03 Dose: 1 tab Duloxetine HCl (Cymbalta) 60 mg PO DAILY [facility] Enoxaparin Sodium (Lovenox) 40 mg SUBCUT DAILY [facility] Ibuprofen (Advil) 400 mg PO Q8HR PRN PRN Reason: Pain, Mild (1-3) Mometasone Furoate (Nasonex) 2 spray NASAL DAILY [facility] Morphine Sulfate (Morphine) 2 mg IV Q4HR PRN PRN Reason: Pain, Moderate (4-6) Multivitamins (Tab-A-Marlin) 1 tab PO DAILY [facility] Ondansetron HCl (Zofran) 4 mg IV Q6HR PRN PRN Reason: Nausea And Vomiting Last Admin: 05/19/19 00:44 Dose: 4 mg Topiramate (Topamax) 50 mg PO QPM [facility] Discontinued Medications Acetaminophen (Tylenol) 325 mg PO NOW PRN PRN Reason: Pain, Mild (1-3) Stop: 05/19/19 00:14 Bupivacaine HCl/Epinephrine Bitart (Sensorcaine 0.5% W/ Epi (Pf)) 30 ml INJ NOW ONE Stop: 05/18/19 21:57 Last Admin: 05/18/19 21:57 Dose: 10 ml Cyclobenzaprine HCl (Flexeril) 10 mg PO BID PRN PRN Reason: severe spasms Doxepin HCl (Sinequan) 20 mg PO BEDTIME [facility] Last Admin: 05/19/19 01:05 Dose: Not Given Fentanyl (Sublimaze) 50 mcg IV Q5MIN PRN PRN Reason: Pain, Moderate (4-6) Hydromorphone HCl (Dilaudid) 0.25 mg IV Q5MIN PRN PRN Reason: Pain, Mild (1-3) Sodium Chloride (Normal Saline 0.9%) 1,000 mls @ 150 mls/hr IV CONT [facility] Last Infusion: 05/18/19 17:16 Dose: 150 mls/hr Admin: 05/18/19 13:49 Dose: 150 mls/hr Cefotetan Disodium/Dextrose (Cefotan) 2 gm in 50 mls @ 100 mls/hr IV NOW ONE Stop: 05/18/19 16:00 Last Infusion: 05/18/19 16:33 Dose: 0 mls/hr Admin: 05/18/19 15:48 Dose: 100 mls/hr Lactated Ringer's (Lactated Ringers) 1,000 mls @ 100 mls/hr IV CONT [facility] Last Infusion: 05/18/19 22:47 Dose: 0 mls/hr Admin: 05/18/19 20:32 Dose: 100 mls/hr Admin: 05/18/19 20:12 Dose: Not Given Piperacillin/Tazobactam/Dextrose (Zosyn) 3.375 gm in 50 mls @ 100 mls/hr IV I NTRA-OP ONE Stop: 05/18/19 19:26 Last Infusion: 05/18/19 21:50 Dose: 0 mls/hr Admin: 05/18/19 21:32 Dose: 100 mls/hr Admin: 05/18/19 21:20 Dose: Not Given Lactated Ringer's (Lactated Ringers) 1,000 mls @ 42 mls/hr IV CONT [facility] Last Admin: 05/19/19 01:05 Dose: Not Given Ketorolac Tromethamine (Toradol) 30 mg IV NOW ONE Stop: 05/18/19 12:53 Last Admin: 05/18/19 13:49 Dose: 30 mg Loratadine (Claritin) 10 mg PO DAILY [facility] Morphine Sulfate (Morphine) 4 mg IV NOW ONE Stop: 05/18/19 17:00 Last Admin: 05/18/19 17:10 Dose: 4 mg Non-Formulary Medication (Cholecalciferol (Vitamin D3) [Vitamin D3]) 1 tab PO DAILY [facility] Ondansetron HCl (Zofran) 4 mg IV NOW ONE Stop: 05/18/19 12:53 Last Admin: 05/18/19 13:49 Dose: 4 mg Ondansetron HCl (Zofran) 4 mg IV NOW PRN PRN Reason: Nausea And Vomiting Oxycodone/Acetaminophen (Percocet 5/325) 1 tab PO Q30MIN PRN PRN Reason: Mild or moderate pain Vital Signs - 8 hr 05/18/19 23:45 05/19/19 00:15 05/19/19 01:15 Temperature 97.0 F L 97.0 F L 97.2 F L Pulse Rate 65 70 73 Respiratory Rate 16 16 16 Blood Pressure 116/72 122/80 121/63 Pulse Oximetry 97 97 99 05/19/19 02:15 05/19/19 05:21 Temperature 97.7 F 97.5 F L Pulse Rate 86 60 Respiratory Rate 18 18 Blood Pressure 116/58 L 102/64 Pulse Oximetry 100 98 MDM - Abdominal Pain <CONY Sanchez - Last Filed: 05/18/19 18:30> Medical Records Attestation: I reviewed the patient's medical records. Lab Data Attestation: I reviewed the patient's lab results. Result diagrams: 05/19/19 05:58 05/18/19 13:00 Lab Results 05/18/19 05/18/19 05/18/19 Range/Units 13:00 13:00 13:00 WBC 16.3 H (4.5-11.0) X10^3/uL RBC 4.69 (4.0-5.2) X10^6/uL Hgb 15.8 (12.0-16.0) g/dL Hct 45.8 (36-46) % MCV 97.7 (80-100) fL MCH 33.8 (26-34) PG MCHC 34.5 (30-36) % RDW 13.9 (11.6-14.8) % Plt Count 361 (150-400) X10^3/uL Neut % (Auto) 85.3 H (50-75) % Lymph % (Auto) 7.0 L (25-40) % Whitman % (Auto) 7.5 (3-14) % Eos % (Auto) 0.0 L (2-4) % Baso % (Auto) 0.2 (0-2) % Neut # (Auto) 46256 H (8021-5768) /uL Lymph # (Auto) 1100 (9601-9403) /uL Whitman # (Auto) 1200 H (0-900) /uL Eos # (Auto) 0 (0-450) /uL Baso # (Auto) 0 (0-100) /uL Sodium 139 (137-145) mmol/L Potassium 3.6 (3.4-5.1) mmol/L Chloride 102 (98-107) mmol/L Carbon Dioxide 25 (22-32) mmol/L BUN 10 (7-17) mg/dL Creatinine 0.80 (0.52-1.04) mg/dL Estimated GFR > 60.0 (>60) mL/min BUN/Creatinine Ratio 12.5 (6-22) Glucose 118 H (70-100) mg/dL Calcium 9.7 (8.4-10.2) mg/dL Total Bilirubin 1.8 H (0.2-1.3) mg/dL AST 23 (14-36) IU/L ALT 40 (9-52) IU/L Alkaline Phosphatase 71 (38-126) U/L Total Protein 7.8 (6.3-8.2) g/dL Albumin 4.7 (3.5-5.0) g/dL Globulin 3.1 (1.7-4.1) g/dL Albumin/Globulin Ratio 1.5 (1.0-2.8) Lipase 53 (23-300) U/L Urine RBC None seen (0-5/HPF) Urine WBC 5-10/hpf H (0-5/HPF) Ur Squamous Epith Cells 5-10 /hpf H (0-5/HPF) Urine Bacteria Many (>30) H (None) Ur Culture Indicated? Cult not indicated Urine Test (Negative) 05/18/19 05/19/19 Range/Units 13:00 05:58 WBC 16.9 H (4.5-11.0) X10^3/uL RBC 4.24 (4.0-5.2) X10^6/uL Hgb 14.3 (12.0-16.0) g/dL Hct 42.3 (36-46) % MCV 99.8 (80-100) fL MCH 33.6 (26-34) PG MCHC 33.7 (30-36) % RDW 13.7 (11.6-14.8) % Plt Count 318 (150-400) X10^3/uL Neut % (Auto) 94.5 H (50-75) % Lymph % (Auto) 3.7 L (25-40) % Whitman % (Auto) 1.7 L (3-14) % Eos % (Auto) 0.0 L (2-4) % Baso % (Auto) 0.1 (0-2) % Neut # (Auto) 80126 H (3194-0774) /uL Lymph # (Auto) 600 L (6935-9347) /uL Whitman # (Auto) 300 (0-900) /uL Eos # (Auto) 0 (0-450) /uL Baso # (Auto) 0 (0-100) /uL Sodium (137-145) mmol/L Potassium (3.4-5.1) mmol/L Chloride (98-107) mmol/L Carbon Dioxide (22-32) mmol/L BUN (7-17) mg/dL Creatinine (0.52-1.04) mg/dL Estimated GFR (>60) mL/min BUN/Creatinine Ratio (6-22) Glucose (70-100) mg/dL Calcium (8.4-10.2) mg/dL Total Bilirubin (0.2-1.3) mg/dL AST (14-36) IU/L ALT (9-52) IU/L Alkaline Phosphatase (38-126) U/L Total Protein (6.3-8.2) g/dL Albumin (3.5-5.0) g/dL Globulin (1.7-4.1) g/dL Albumin/Globulin Ratio (1.0-2.8) Lipase (23-300) U/L Urine RBC (0-5/HPF) Urine WBC (0-5/HPF) Ur Squamous Epith Cells (0-5/HPF) Urine Bacteria (None) Ur Culture Indicated? Urine Test Negative (Negative) Point of care testing: Point of Care Testing Test Results Not applicable Glucose POC 86 Urine Dip Bedside Urine Glucose Negative Bedside Urine Bilirubin - Negative Bedside Urine Ketone +++ 80 Urine Specific Sutherland 1.010 Bedside Urine Occult Blood - Negative Bedside Urine pH 8.5 Bedside Urine Protein + 30 Bedside Urine Urobilinogen 1+ 2mg Bedside Urine Nitrite - Negative Bedside Urine Leukocytes +/- [address] scan - abdomen: Radiologist's impression: [address] [address] [address] Scan Report Signed Patient: Irina Florian LMR#: [id number] : 1980Acct:[id number] Age/Sex: 39 / FDate of Service: 05/18/19 Loc: ED Accession Number: [id number] Procedure: CT abdomen pelvis w con Ordering Provider: Guera Pringle PROCEDURE: CT ABDOMEN PELVIS W CON INDICATIONS: RLQ pain, n/v/d, chills TECHNIQUE: After the administration of intravenous contrast, 5 mm thick sections acquired from the diaphragm to the symphysis. 5 mm coronal and sagittal reformats were acquired. For radiation dose reduction, the following was used: automated exposure control, adjustment of mA and/or kV according to patient size. COMPARISON: None. FINDINGS: Image quality: Excellent. ABDOMEN: Lung bases: Lung bases are clear. Heart size is normal. Solid organs: Liver is normal in size and enhancement. There are several subcentimeter right hepatic lobe hypodensities, nonspecific but likely small cysts or hemangiomas. Gallbladder appears normal. Biliary system is non dilated. Pancreas enhances normally. Spleen is normal in size and enhancement. No adrenal nodules. Kidneys demonstrate normal size and enhancement, without hydronephrosis. Peritoneum and bowel: Bowel loops demonstrate normal wall thickness and caliber. No free fluid or air. Nodes and vessels: No retroperitoneal or mesenteric adenopathy by size criteria. Aorta and inferior vena cava are normal in size. Miscellaneous: No ventral hernias. PELVIS: Genitourinary: Bladder wall thickness is normal. Miscellaneous: No inguinal hernias or adenopathy. At the right lower quadrant there is definite acute appendicitis, and the appendix contains several subtle appendicoliths which reportedly increases the risk of early perforation in this clinical setting. Bones: No suspicious bony lesions. No vertebral body compression fractures. IMPRESSION: Definite acute appendicitis without periappendiceal abscess. Several small appendicoliths are seen within the appendix, and surgical consultation is recommended. Dictated by: Theron Greenwood M.D. on 05/18/2019 at 14:20 Approved by: Theron Greenwood M.D. on 05/18/2019 at 14:24 MDM Narrative Medical decision making narrative: High suspicion of appendicitis (appendicitis reported on CT, elevated white blood cell count, acute abdominal exam, reports of nausea and vomiting), I also suspect that patient may have a urinary tract infection as well (see urinalysis). Less likely sepsis due to lack of systemic symptoms such as fever, hypotension, or acutely ill appearance. Less likely tubal due to negative test. <Beatriz Anguiano, - Last Filed: 05/19/19 07:27> Lab Data Lab Results 05/18/19 05/18/19 05/18/19 Range/Units 13:00 13:00 13:00 WBC 16.3 H (4.5-11.0) X10^3/uL RBC 4.69 (4.0-5.2) X10^6/uL Hgb 15.8 (12.0-16.0) g/dL Hct 45.8 (36-46) % MCV 97.7 (80-100) fL MCH 33.8 (26-34) PG MCHC 34.5 (30-36) % RDW 13.9 (11.6-14.8) % Plt Count 361 (150-400) X10^3/uL Neut % (Auto) 85.3 H (50-75) % Lymph % (Auto) 7.0 L (25-40) % Whitman % (Auto) 7.5 (3-14) % Eos % (Auto) 0.0 L (2-4) % Baso % (Auto) 0.2 (0-2) % Neut # (Auto) 39276 H (7231-2612) /uL Lymph # (Auto) 1100 (7703-6432) /uL Whitman # (Auto) 1200 H (0-900) /uL Eos # (Auto) 0 (0-450) /uL Baso # (Auto) 0 (0-100) /uL Sodium 139 (137-145) mmol/L Potassium 3.6 (3.4-5.1) mmol/L Chloride 102 (98-107) mmol/L Carbon Dioxide 25 (22-32) mmol/L BUN 10 (7-17) mg/dL Creatinine 0.80 (0.52-1.04) mg/dL Estimated GFR > 60.0 (>60) mL/min BUN/Creatinine Ratio 12.5 (6-22) Glucose 118 H (70-100) mg/dL Calcium 9.7 (8.4-10.2) mg/dL Total Bilirubin 1.8 H (0.2-1.3) mg/dL AST 23 (14-36) IU/L ALT 40 (9-52) IU/L Alkaline Phosphatase 71 (38-126) U/L Total Protein 7.8 (6.3-8.2) g/dL Albumin 4.7 (3.5-5.0) g/dL Globulin 3.1 (1.7-4.1) g/dL Albumin/Globulin Ratio 1.5 (1.0-2.8) Lipase 53 (23-300) U/L Urine RBC None seen (0-5/HPF) Urine WBC 5-10/hpf H (0-5/HPF) Ur Squamous Epith Cells 5-10 /hpf H (0-5/HPF) Urine Bacteria Many (>30) H (None) Ur Culture Indicated? Cult not indicated Urine Test (Negative) 05/18/19 05/19/19 Range/Units 13:00 05:58 WBC 16.9 H (4.5-11.0) X10^3/uL RBC 4.24 (4.0-5.2) X10^6/uL Hgb 14.3 (12.0-16.0) g/dL Hct 42.3 (36-46) % MCV 99.8 (80-100) fL MCH 33.6 (26-34) PG MCHC 33.7 (30-36) % RDW 13.7 (11.6-14.8) % Plt Count 318 (150-400) X10^3/uL Neut % (Auto) 94.5 H (50-75) % Lymph % (Auto) 3.7 L (25-40) % Whitman % (Auto) 1.7 L (3-14) % Eos % (Auto) 0.0 L (2-4) % Baso % (Auto) 0.1 (0-2) % Neut # (Auto) 05852 H (5377-9815) /uL Lymph # (Auto) 600 L (7699-5723) /uL Whitman # (Auto) 300 (0-900) /uL Eos # (Auto) 0 (0-450) /uL Baso # (Auto) 0 (0-100) /uL Sodium (137-145) mmol/L Potassium (3.4-5.1) mmol/L Chloride (98-107) mmol/L Carbon Dioxide (22-32) mmol/L BUN (7-17) mg/dL Creatinine (0.52-1.04) mg/dL Estimated GFR (>60) mL/min BUN/Creatinine Ratio (6-22) Glucose (70-100) mg/dL Calcium (8.4-10.2) mg/dL Total Bilirubin (0.2-1.3) mg/dL AST (14-36) IU/L ALT (9-52) IU/L Alkaline Phosphatase (38-126) U/L Total Protein (6.3-8.2) g/dL Albumin (3.5-5.0) g/dL Globulin (1.7-4.1) g/dL Albumin/Globulin Ratio (1.0-2.8) Lipase (23-300) U/L Urine RBC (0-5/HPF) Urine WBC (0-5/HPF) Ur Squamous Epith Cells (0-5/HPF) Urine Bacteria (None) Ur Culture Indicated? Urine Test Negative (Negative) Point of care testing: Point of Care Testing Test Results Not applicable Glucose POC 86 Urine Dip Bedside Urine Glucose Negative Bedside Urine Bilirubin - Negative Bedside Urine Ketone +++ 80 Urine Specific Sutherland 1.010 Bedside Urine Occult Blood - Negative Bedside Urine pH 8.5 Bedside Urine Protein + 30 Bedside Urine Urobilinogen 1+ 2mg Bedside Urine Nitrite - Negative Bedside Urine Leukocytes +/- 15 Esterase Discharge Plan Departure Patient Disposition: Admitted as Observation Clinical Impression: Appendicitis Qualifiers: Appendicitis type: acute appendicitis Acute appendicitis type: unspecified acute appendicitis type Qualified Code(s): K35.80 - Unspecified acute appendicitis Discharge Date/Time: 05/18/19 17:33 Interventions: ED Discharge Assessment Last Done: 05/18/19 17:33 Admit Date/Time: 05/18/19 16:25 Admit Provider: Shady Melton <Beatriz Anguiano DO - Last Filed: 05/19/19 07:27> Cosign ED Attending Deb Attestation: I was immediately available in the department for consultation. Documentation has been reviewed. I agree with assessment and plan.
[2019-05-18 13:07] LABS: RBC Urine None Seen (0-5/HPF)
[2019-05-18 13:28] LABS: Bacteria Urine Many (>30); Squamous Epithelial Cell Urine 5-10 /HPF (0-5/HPF); WBC Urine 5-10/HPF (0-5/HPF)
[2019-05-18 13:29] LABS: Culture Indicated Urine Cult Not Indicated
[2019-05-18] MEDS: KETOROLAC 60 MG/2 ML VIAL 30 MG IV (13:49)
[2019-05-18] MEDS: ONDANSETRON 4 MG/2 ML INJ IV (13:49)
[2019-05-18] MEDS: SODIUM CHLORIDE 0.9% 1,000 ML 150 ML IV (13:49)
[2019-05-18 13:53] LABS: Add Manual Diff / Slide Review NO; Basophils Absolute Auto 0 /uL (0-100); Basophils Percent Auto 0.2 % (0-2); Eosinophils Absolute Auto 0 /uL (0-450); Hematocrit 45.8 % (36-46); Hemoglobin 15.8 g/dL (12.0-16.0); Lymphocytes Absolute Auto 1100 /uL (1100-4500); Mean Corpuscular HGB Conc 34.5 % (30-36); Mean Corpuscular Hemoglobin 33.8 PG (26-34); Mean Corpuscular Volume 97.7 fL (80-100); Monocytes Absolute Auto 1200 /uL (0-900); Monocytes Percent Auto 7.5 % (3-14); Neutrophils Absolute Auto 13900 /uL (1500-7000); Neutrophils Percent Auto 85.3 % (50-75); Platelet Count 361 X10^3/uL (150-400); Red Blood Cell Count 4.69 X10^6/uL (4.0-5.2); Red Cell Distribution Width 13.9 % (11.6-14.8); White Blood Cell Count 16.3 X10^3/uL (4.5-11.0)
[2019-05-18 14:00] LABS: Alanine Aminotransferase 40 IU/L (9-52); Albumin 4.7 g/dL (3.5-5.0); Albumin Globulin Ratio 1.5 (1.0-2.8); Alkaline Phosphatase 71 U/L (38-126); Aspartate Aminotransferase 23 IU/L (14-36); BUN Creatinine Ratio 12.5 (6-22); Bilirubin Total 1.8 mg/dL (0.2-1.3); Blood Urea Nitrogen 10 mg/dL (7-17); Calcium 9.7 mg/dL (8.4-10.2); Carbon Dioxide 25 mmol/L (22-32); Chloride 102 mmol/L (98-107); Estimated Glomerular Filt Rate > 60.0 mL/min (>60); Globulin 3.1 g/dL (1.7-4.1); Glucose 118 mg/dL (70-100); HEMOLYSIS < 15 (0-50); Lipase 53 U/L (23-300); Potassium 3.6 mmol/L (3.4-5.1); Sodium 139 mmol/L (137-145); Total Protein 7.8 g/dL (6.3-8.2)
--- NOTE | 2019-05-18 14:13 | DI.CT.S_ITS ---
PROCEDURE: CT ABDOMEN PELVIS W CON INDICATIONS: RLQ pain, n/v/d, chills TECHNIQUE: After the administration of intravenous contrast, 5 mm thick sections acquired from the diaphragm to the symphysis. 5 mm coronal and sagittal reformats were acquired. For radiation dose reduction, the following was used: automated exposure control, adjustment of mA and/or kV according to patient size. COMPARISON: None. FINDINGS: Image quality: Excellent. ABDOMEN: Lung bases: Lung bases are clear. Heart size is normal. Solid organs: Liver is normal in size and enhancement. There are several subcentimeter right hepatic lobe hypodensities, nonspecific but likely small cysts or hemangiomas. Gallbladder appears normal. Biliary system is non dilated. Pancreas enhances normally. Spleen is normal in size and enhancement. No adrenal nodules. Kidneys demonstrate normal size and enhancement, without hydronephrosis. Peritoneum and bowel: Bowel loops demonstrate normal wall thickness and caliber. No free fluid or air. Nodes and vessels: No retroperitoneal or mesenteric adenopathy by size criteria. Aorta and inferior vena cava are normal in size. Miscellaneous: No ventral hernias. PELVIS: Genitourinary: Bladder wall thickness is normal. Miscellaneous: No inguinal hernias or adenopathy. At the right lower quadrant there is definite acute appendicitis, and the appendix contains several subtle appendicoliths which reportedly increases the risk of early perforation in this clinical setting. Bones: No suspicious bony lesions. No vertebral body compression fractures. IMPRESSION: Definite acute appendicitis without periappendiceal abscess. Several small appendicoliths are seen within the appendix, and surgical consultation is recommended. Dictated by: Theron Greenwood M.D. on 05/18/2019 at 14:20 Approved by: Theron Greenwood M.D. on 05/18/2019 at 14:24
[2019-05-18] MEDS: CEFOTETAN 2 GM/50 ML PIGGYBACK IV (15:48)
[2019-05-18] MEDS: MORPHINE 4 MG/ML INJ IV (17:10)
--- NOTE | 2019-05-18 17:34 | PM.HP.1 ---
History of Present Illness Date Patient Seen: 05/18/19 Time Patient Seen: 17:37 Chief complaint: NAUSEA VOMTING AND RIGHT LOWER ABDOMINAL PAIN Narrative: Ms. Florian is a 39-year-old female who is presenting to the emergency room with acute appendicitis. Yesterday evening she developed the periumbilical pain that has worsened in its severity now is localized to the right lower quadrant. She has associated nausea and emesis. Pain is worsened with activity and has improved with IV pain medication. In the emergency room she underwent a CT of the abdomen pelvis which demonstrates a dilated appendix and stranding without abscess. She has no significant past medical or past surgical history. Last oral intake was approximately 24 hours ago. Patient History Social History Smoking Status: Former smoker Family & Social History Safety & Behavioral: Feels Safe in Current Yes Environment Been Physically Hurt or No Threatened By a Person Tobacco & Substance use: Smoking Status Former smoker Substance Use Type marijuana Meds Home Medications Medication Instructions Recorded Confirmed Type medroxyprogesterone 150 mg IM [id number] #[id number] 03/07/11 05/18/19 History doxepin 10 mg capsule 20 mg PO BEDTIME cap MDD anxiety 05/10/19 05/18/19 History duloxetine 60 mg capsule,delayed 60 mg PO DAILY 05/10/19 05/18/19 History release mometasone 50 mcg/actuation nasal 2 spray NASAL DAILY 05/10/19 05/18/19 History spray topiramate 25 mg tablet 50 mg PO QPM tab 05/10/19 05/18/19 History cetirizine 10 mg PO DAILY PRN 05/18/19 05/18/19 History cholecalciferol (vitamin D3) 1 tab PO DAILY 05/18/19 05/18/19 History [Vitamin D3] cyclobenzaprine 10 mg PO BID PRN 05/18/19 05/18/19 History multivitamin 1 tab PO DAILY 05/18/19 05/18/19 History Allergies Allergy/AdvReac Type Severity Reaction Status Date / Time red dye Allergy Verified 05/18/19 12:43 Review of Systems Constitutional Constitutional: Reports system reviewed and no additional complaints, except as documented Cardiovascular Cardiovascular: Reports system reviewed; no additional complaints, except as documented Respiratory Respiratory: Reports system reviewed and no additional complaints, except as documented Gastrointestinal Gastrointestinal: Reports system reviewed and no additional complaints, except as documented, Reports abdominal pain, Reports nausea and Reports vomiting Genitourinary Genitourinary: Reports system reviewed and no additional complaints, except as documented Musculoskeletal Musculoskeletal: Reports system reviewed; no additional complaints, except as documented Neurologic Neurologic: Reports system reviewed and no additional complaints, except as documented Psychiatric Psychiatric: Reports system reviewed and no additional complaints, except as documented Endocrine Endocrine: Reports system reviewed and no additional complaints, except as documented Hematologic/Lymphatic Hematologic/Lymphatic: Reports system reviewed and no additional complaints, except as documented Exam Vital Signs (past 8 hours): - 05/18/19 12:44 05/18/19 14:15 05/18/19 14:30 Temperature 97.9 F Pulse Rate 97 H 82 80 Respiratory Rate 16 16 17 Blood Pressure 137/78 Blood Pressure [Right Arm] 126/80 131/77 Pulse Oximetry 99 100 100 05/18/19 15:00 Temperature Pulse Rate 78 Respiratory Rate 15 Blood Pressure Blood Pressure [Right Arm] 121/77 Pulse Oximetry 99 Oxygen Delivery Method Room Air Const General: well developed Orientation: alert and oriented x3 HENMT Mouth: oral mucosae normal Eyes Sclera: sclerae normal Resp Effort & Inspection: normal respiratory effort Auscultation: clear to auscultation bilaterally Cardio Rate: regular rate Rhythm: regular rhythm GI Inspection: normal to inspection Palpation: tender (RLQ with palpation, no rebound or gaurding) Skin General: no rashes or lesions noted Neuro General: alert and oriented x3 Objective Imaging CT scan - abdomen: My impression: acute appendicitis without abscess Labs Result Diagrams: 05/18/19 13:00 05/18/19 13:00 Labs: Laboratory Results - last 24 hr 05/18/19 05/18/19 05/18/19 13:00 13:00 13:00 WBC 16.3 H RBC 4.69 Hgb 15.8 Hct 45.8 MCV 97.7 MCH 33.8 MCHC 34.5 RDW 13.9 Plt Count 361 Neut % (Auto) 85.3 H Lymph % (Auto) 7.0 L Miller % (Auto) 7.5 Eos % (Auto) 0.0 L Baso % (Auto) 0.2 Neut # (Auto) 30793 H Lymph # (Auto) 1100 Miller # (Auto) 1200 H Eos # (Auto) 0 Baso # (Auto) 0 Sodium 139 Potassium 3.6 Chloride 102 Carbon Dioxide 25 BUN 10 Creatinine 0.80 Estimated GFR > 60.0 BUN/Creatinine Ratio 12.5 Glucose 118 H Calcium 9.7 Total Bilirubin 1.8 H AST 23 ALT 40 Alkaline Phosphatase 71 Total Protein 7.8 Albumin 4.7 Globulin 3.1 Albumin/Globulin Ratio 1.5 Lipase 53 Urine RBC None seen Urine WBC 5-10/hpf H Ur Squamous Epith Cells 5-10 /hpf H Urine Bacteria Many (>30) H Ur Culture Indicated? Cult not indicated Assessment & Plan Assessment & Plan narrative: 39F with acute appendicitis by clinical history and confirmed with CT A/P. <24hrs of illness. WBC 16, CT reviewed demonstrates acute appendicitis without abscess. -Zosyn now -Booked for laparoscopic possible open appendectomy. Discussed risks of surgery including but not limitted to bleeding infection, damage to surrounding structures, need for further operation. -Admit for observation -SCDs -Pain control Time Spent With Patient Time with patient: 25 - 35 minutes
--- NOTE | 2019-05-18 17:46 | P.HP_ITS ---
History of Present Illness Date Patient Seen: 05/18/19 Time Patient Seen: 17:37 Chief complaint: NAUSEA VOMTING AND RIGHT LOWER ABDOMINAL PAIN Narrative: Ms. Florian is a 39-year-old female who is presenting to the emergency room with acute appendicitis. Yesterday evening she developed the periumbilical pain that has worsened in its severity now is localized to the right lower quadrant. She has associated nausea and emesis. Pain is worsened with activity and has improved with IV pain medication. In the emergency room she underwent a CT of the abdomen pelvis which demonstrates a dilated appendix and stranding without abscess. She has no significant past medical or past surgical history. Last oral intake was approximately 24 hours ago. Patient History Social History Smoking Status: Former smoker Family & Social History Safety & Behavioral: Feels Safe in Current Yes Environment Been Physically Hurt or No Threatened By a Person Tobacco & Substance use: Smoking Status Former smoker Substance Use Type marijuana Meds Home Medications Medication Instructions Recorded Confirmed Type medroxyprogesterone 150 mg IM [id number] #[id number] 03/07/11 05/18/19 History doxepin 10 mg capsule 20 mg PO BEDTIME cap MDD anxiety 05/10/19 05/18/19 History duloxetine 60 mg capsule,delayed 60 mg PO DAILY 05/10/19 05/18/19 History release mometasone 50 mcg/actuation nasal 2 spray NASAL DAILY 05/10/19 05/18/19 History spray topiramate 25 mg tablet 50 mg PO QPM tab 05/10/19 05/18/19 History cetirizine 10 mg PO DAILY PRN 05/18/19 05/18/19 History cholecalciferol (vitamin D3) 1 tab PO DAILY 05/18/19 05/18/19 History [Vitamin D3] cyclobenzaprine 10 mg PO BID PRN 05/18/19 05/18/19 History multivitamin 1 tab PO DAILY 05/18/19 05/18/19 History Allergies Allergy/AdvReac Type Severity Reaction Status Date / Time red dye Allergy Verified 05/18/19 12:43 Review of Systems Constitutional Constitutional: Reports system reviewed and no additional complaints, except as documented Cardiovascular Cardiovascular: Reports system reviewed; no additional complaints, except as documented Respiratory Respiratory: Reports system reviewed and no additional complaints, except as documented Gastrointestinal Gastrointestinal: Reports system reviewed and no additional complaints, except as documented, Reports abdominal pain, Reports nausea and Reports vomiting Genitourinary Genitourinary: Reports system reviewed and no additional complaints, except as documented Musculoskeletal Musculoskeletal: Reports system reviewed; no additional complaints, except as documented Neurologic Neurologic: Reports system reviewed and no additional complaints, except as documented Psychiatric Psychiatric: Reports system reviewed and no additional complaints, except as documented Endocrine Endocrine: Reports system reviewed and no additional complaints, except as docum ented Hematologic/Lymphatic Hematologic/Lymphatic: Reports system reviewed and no additional complaints, except as documented Exam Vital Signs (past 8 hours): - 05/18/19 12:44 05/18/19 14:15 05/18/19 14:30 Temperature 97.9 F Pulse Rate 97 H 82 80 Respiratory Rate 16 16 17 Blood Pressure 137/78 Blood Pressure [Right Arm] 126/80 131/77 Pulse Oximetry 99 100 100 05/18/19 15:00 Temperature Pulse Rate 78 Respiratory Rate 15 Blood Pressure Blood Pressure [Right Arm] 121/77 Pulse Oximetry 99 Oxygen Delivery Method Room Air Const General: well developed Orientation: alert and oriented x3 HENMT Mouth: oral mucosae normal Eyes Sclera: sclerae normal Resp Effort & Inspection: normal respiratory effort Auscultation: clear to auscultation bilaterally Cardio Rate: regular rate Rhythm: regular rhythm GI Inspection: normal to inspection Palpation: tender (RLQ with palpation, no rebound or gaurding) Skin General: no rashes or lesions noted Neuro General: alert and oriented x3 Objective Imaging CT scan - abdomen: My impression: acute appendicitis without abscess Labs Result Diagrams: 05/18/19 13:00 05/18/19 13:00 Labs: Laboratory Results - last 24 hr 05/18/19 05/18/19 05/18/19 13:00 13:00 13:00 WBC 16.3 H RBC 4.69 Hgb 15.8 Hct 45.8 MCV 97.7 MCH 33.8 MCHC 34.5 RDW 13.9 Plt Count 361 Neut % (Auto) 85.3 H Lymph % (Auto) 7.0 L Terrell % (Auto) 7.5 Eos % (Auto) 0.0 L Baso % (Auto) 0.2 Neut # (Auto) 52472 H Lymph # (Auto) 1100 Terrell # (Auto) 1200 H Eos # (Auto) 0 Baso # (Auto) 0 Sodium 139 Potassium 3.6 Chloride 102 Carbon Dioxide 25 BUN 10 Creatinine 0.80 Estimated GFR > 60.0 BUN/Creatinine Ratio 12.5 Glucose 118 H Calcium 9.7 Total Bilirubin 1.8 H AST 23 ALT 40 Alkaline Phosphatase 71 Total Protein 7.8 Albumin 4.7 Globulin 3.1 Albumin/Globulin Ratio 1.5 Lipase 53 Urine RBC None seen Urine WBC 5-10/hpf H Ur Squamous Epith Cells 5-10 /hpf H Urine Bacteria Many (>30) H Ur Culture Indicated? Cult not indicated Assessment & Plan Assessment & Plan narrative: 39F with acute appendicitis by clinical history and confirmed with CT A/P. <24hrs of illness. WBC 16, CT reviewed demonstrates acute appendicitis without abscess. -Zosyn now -Booked for laparoscopic possible open appendectomy. Discussed risks of surgery including but not limitted to bleeding infection, damage to surrounding structur es, need for further operation. -Admit for observation -SCDs -Pain control Time Spent With Patient Time with patient: 25 - 35 minutes
--- NOTE | 2019-05-18 17:47 | PM.PREOP ---
Pre-operative Note Interval Note History & Physical reviewed/Exam performed by Physician: Yes Changes to H&P: No
--- NOTE | 2019-05-18 19:14 | PC.ADMIT ---
14[address] [facility] Admission Note: The patient,Irina Florian,39 y/o, was given written information regarding hospital policies, unit procedures and contact persons. Patient's smoking status: Former smoker. Vital Signs - 8 hr 05/18/19 12:44 05/18/19 14:15 05/18/19 14:30 Temperature 97.9 F Pulse Rate 97 H 82 80 Respiratory Rate 16 16 17 Blood Pressure 137/78 Blood Pressure [Right Arm] 126/80 131/77 Pulse Oximetry 99 100 100 05/18/19 15:00 05/18/19 17:20 Temperature 99.2 F Pulse Rate 78 92 H Respiratory Rate 15 16 Blood Pressure 114/82 Blood Pressure [Right Arm] 121/77 Pulse Oximetry 99 97 Patient admitted from ED to room 208, ambulated independently to bed from [facility]. A & O x 3, pleasant and cooperative. No n/v, tender to lower abdomen to palpation. Remain NPO and IVF. VSS and afebrile. Surgical consent signed in ED. Oriented to room , environment, and plan of care.
--- NOTE | 2019-05-18 20:13 | PC.NURSE ---
Grace shift note: Patient taken to OR by Nicholas MCCARTHY, awake and alert. Consent signed. test results pending, RN aware.
[2019-05-18 20:18] LABS: Pregnancy Test Urine Negative (Negative)
[2019-05-18] MEDS: LACTATED RINGERS 1,000 ML 100 ML IV (20:32)
[2019-05-18] MEDS: PIPERACILLIN-TAZO 3.375 GM/50 ML FROZ.PIGGY IV (21:32)
--- NOTE | 2019-05-18 21:44 | SUR.OPER ---
Supine on padded OR bed, head on pillow, left arm padded and tucked at side, legs uncrossed, safety belt at thigh, tape over blanket over lower legs .
[2019-05-18] MEDS: BUPIVACAINE 0.5% W/ EPI (PF) VIAL 30 ML INJ (21:57)
--- NOTE | 2019-05-18 22:43 | P.OP_ITS ---
Operative Date/Time/Diagnoses Date of procedure: 05/18/19 Time of procedure: 22:41 Pre-op diagnosis: acute appendicitis Post-op diagnosis: same Procedure & Clinicians Procedure: laparoscopic appendecomy Same procedure as scheduled: Yes Indications: acute appendicitis by clinical exam and history confirmed by CT A/P Click Yes if Unassisted: Yes Anesthesia Type: General Operative Notes Findings: acute non perforated appendicitis Specimen(s): other (appendix) Estimated Blood Loss (mL): 5 Blood products transfused: none Procedure in detail: Brief clinical note: Mrs Florian is a 39-year-old female who presented with acute appendicitis based on history clinical exam and confirmed with CT abdomen pelvis. I reviewed the CT which demonstrates acute appendicitis without abscess. Following a discussion of the benefits alternatives and risks to surgery including bleeding infection damage to surroun ding organs need for conversion to an open operation patient elected to proceed. Procedure patient was brought to the operating room placed supine on the table. Bilateral lower extremity compression devices were applied. General anesthesia was induced and she was intubated with an endotracheal tube. A time-out was performed to ensure the correct patient procedure and necessary equipment within the operating room. Patient received Zosyn prior to skin incision in the operating room. A infraumbilical incision was made in the skin and subcutaneous tissues were divided. The umbilical stalk was grasped elevated and then the abdomen was entered atraumatically. A 10 mm trocar was then placed in the abdomen pneumoperitoneum was established. Laparascope was inserted in the abdomen and inspection was made which demonstrated no injury upon entry. We then placed our working ports included 5 mm main working port in the suprapubic area as well as 1 in the left lower quadrant. The patient was then positioned head down right side up in the small bowel swept out of the pelvis. The right colon was identified and at the base of the cecum the appendix was noted. It was significantly inflamed but was not obviously perforated. The appendix was grasped and it was gently teased from the adjacent terminal ileum using careful blunt dissection. The appendix was then retracted and a window within the mesentery was made. The mesoappendix was divided using the Endo-CARRIE stapler with a vascular load. Next the appendix was taken at its base and divided using the Endo stapler using a blue bowel load. This point the specimen was retrieved from the abdomen using the Endo-Catch bag. Next the abdomen was irrigated with sterile saline and suction. We inspected the staple lines and they were found to be hemostatic and intact. The trocars were then removed from the abdomen under direct visualization. The umbilical fascial incision was closed with 0 Vicryl suture. The skin of the incisions was closed with Monocryl followed by application of Dermabond. The patient emerged from general anesthesia was extubated and transferred to the postoperative care unit in stable condition. Complications: none Condition: stable Disposition: PACU
[2019-05-19] VITALS (7 sets, daily range): BP systolic 102–122; BP diastolic 58–80; PULSE 59–86; RESP 16–18; TEMP 36.1–36.9; O2SAT 97–100
[2019-05-19] MEDS: ONDANSETRON 4 MG/2 ML INJ IV ×3 (00:44→16:53)
[2019-05-19] MEDS: HYDROCODONE/ACET 10/325 TABLET 1 TAB PO (05:03)
[2019-05-19 06:10] LABS: Add Manual Diff / Slide Review NO; Basophils Absolute Auto 0 /uL (0-100); Basophils Percent Auto 0.1 % (0-2); Eosinophils Absolute Auto 0 /uL (0-450); Hematocrit 42.3 % (36-46); Hemoglobin 14.3 g/dL (12.0-16.0); Lymphocytes Absolute Auto 600 /uL (1100-4500); Lymphocytes Percent Auto 3.7 % (25-40); Mean Corpuscular HGB Conc 33.7 % (30-36); Mean Corpuscular Hemoglobin 33.6 PG (26-34); Mean Corpuscular Volume 99.8 fL (80-100); Monocytes Absolute Auto 300 /uL (0-900); Monocytes Percent Auto 1.7 % (3-14); Neutrophils Absolute Auto 16000 /uL (1500-7000); Neutrophils Percent Auto 94.5 % (50-75); Platelet Count 318 X10^3/uL (150-400); Red Blood Cell Count 4.24 X10^6/uL (4.0-5.2); Red Cell Distribution Width 13.7 % (11.6-14.8); White Blood Cell Count 16.9 X10^3/uL (4.5-11.0)
--- NOTE | 2019-05-19 08:09 | CM.DANOTE ---
Addendum entered by Melida Lopez LPN 05/19/19 14:42: Met with pt as planned. A d/c order is in with d/c summary in draft from surgeon. Pt has had trouble with ongoing nausea today. She says she is realizing she will need to take it slowly with diet and that she is now getting some anti-nausea medication. She says her boyfriend Chi, who has been with her at bedside, is at the pharmacy picking up the dc medication. He will be caring for her when she gets home. Discussed case with FABIO Tracy. She noted pt was on track to d/c later this afternoon. P: d/c later today Original Note: Discharge Planning/Care Management DCP: assessment: case received, EMR reviewed. Pt is a 39 year old female who admitted yesterday later afternoon to care of [facility] Surgeons: Dr. Letitia Melton PCP: Terrie Clifford Payer: [facility]/Medicaid Pt was taken to surgery late last night: laproscopic appendectomy: dx acute appendicitis: non perforated. P: follow for d/c needs. Pt is currently sleeping. Will be discussing case today in Team Rounds. CM Discharge Assessment Start: 05/19/19 08:08 Freq: Status: Active Protocol: Document 05/19/19 08:08 ITV (Rec: 05/19/19 08:09 ITV [id number]) Discharge Planning Assessment Advance Directives? No History Provided By Medical Record Prior Living Arrangements House Household Members family Is patient alert and oriented? Yes Review Status In Process
[2019-05-19] MEDS: DULOXETINE 30 MG CAPSULE 60 MG PO (08:36)
[2019-05-19] MEDS: MORPHINE 2 MG/ML INJ IV (08:37)
[2019-05-19] MEDS: ENOXAPARIN 40 MG/0.4 ML SYRINGE SUBCUT (08:38)
--- NOTE | 2019-05-19 10:04 | PM.PNPO.1 ---
Subjective Date Patient Seen: 05/19/19 Time Patient Seen: 09:04 Interval history: Doing well status post laparoscopic appendectomy postoperative day 1. Pain controlled with p.o. and IV narcotics. Tolerating regular diet without nausea or emesis. Urinating without difficulty. Exam Vital Signs (past 8 hours): - 05/19/19 02:15 05/19/19 05:21 05/19/19 08:10 Temperature 97.7 F 97.5 F L 98.3 F Pulse Rate 86 60 78 Respiratory Rate 18 18 17 Blood Pressure 116/58 L 102/64 111/67 Pulse Oximetry 100 98 98 Oxygen Delivery Method Room Air Oxygen Flow Rate 0 Narrative Exam Narrative: General adult female alert oriented no acute distress Chest nonlabored respirations clear to auscultation bilaterally Cardiac regular rate and rhythm Abdomen appropriately tender to palpation. Incisions clean dry intact. Objective Labs Result Diagrams: 05/19/19 05:58 05/18/19 13:00 Labs: Laboratory Results - last 24 hr 05/18/19 05/18/19 05/18/19 13:00 13:00 13:00 WBC 16.3 H RBC 4.69 Hgb 15.8 Hct 45.8 MCV 97.7 MCH 33.8 MCHC 34.5 RDW 13.9 Plt Count 361 Neut % (Auto) 85.3 H Lymph % (Auto) 7.0 L Gillespie % (Auto) 7.5 Eos % (Auto) 0.0 L Baso % (Auto) 0.2 Neut # (Auto) 57793 H Lymph # (Auto) 1100 Gillespie # (Auto) 1200 H Eos # (Auto) 0 Baso # (Auto) 0 Sodium 139 Potassium 3.6 Chloride 102 Carbon Dioxide 25 BUN 10 Creatinine 0.80 Estimated GFR > 60.0 BUN/Creatinine Ratio 12.5 Glucose 118 H Calcium 9.7 Total Bilirubin 1.8 H AST 23 ALT 40 Alkaline Phosphatase 71 Total Protein 7.8 Albumin 4.7 Globulin 3.1 Albumin/Globulin Ratio 1.5 Lipase 53 Urine RBC None seen Urine WBC 5-10/hpf H Ur Squamous Epith Cells 5-10 /hpf H Urine Bacteria Many (>30) H Ur Culture Indicated? Cult not indicated Urine Test 05/18/19 05/19/19 13:00 05:58 WBC 16.9 H RBC 4.24 Hgb 14.3 Hct 42.3 MCV 99.8 MCH 33.6 MCHC 33.7 RDW 13.7 Plt Count 318 Neut % (Auto) 94.5 H Lymph % (Auto) 3.7 L Gillespie % (Auto) 1.7 L Eos % (Auto) 0.0 L Baso % (Auto) 0.1 Neut # (Auto) 89168 H Lymph # (Auto) 600 L Gillespie # (Auto) 300 Eos # (Auto) 0 Baso # (Auto) 0 Sodium Potassium Chloride Carbon Dioxide BUN Creatinine Estimated GFR BUN/Creatinine Ratio Glucose Calcium Total Bilirubin AST ALT Alkaline Phosphatase Total Protein Albumin Globulin Albumin/Globulin Ratio Lipase Urine RBC Urine WBC Ur Squamous Epith Cells Urine Bacteria Ur Culture Indicated? Urine Test Negative Assessment & Plan Post-op Postoperative Procedures Operation Date: 05/18/19 19:00 Actual Procedures Side Surgeon p Laparoscopic Appendectomy Shady Melton MD Postoperative status: doing well Postoperative plan: routine post-op care Postoperative plan narrative: Doing well postoperative day 1 status post laparoscopic appendectomy for acute non perforated appendicitis. It is Ambulate Regular diet Prophylactic Lovenox for DVT prophylaxis Discharge later today when pain adequately controlled with p.o. medication Discharge instructions provided Time Spent With Patient less than 15 minutes
--- NOTE | 2019-05-19 10:10 | PM.DS.1 ---
History of Present Illness Chief complaint: NAUSEA VOMTING AND RIGHT LOWER ABDOMINAL PAIN Narrative: Ms. Florian is a 39-year-old female who is presenting to the emergency room with acute appendicitis. Yesterday evening she developed the periumbilical pain that has worsened in its severity now is localized to the right lower quadrant. She has associated nausea and emesis. Pain is worsened with activity and has improved with IV pain medication. In the emergency room she underwent a CT of the abdomen pelvis which demonstrates a dilated appendix and stranding without abscess. She has no significant past medical or past surgical history. Last oral intake was approximately 24 hours ago. Discharge Providers Date of admission: 05/18/19 16:25 Discharge Date: 05/19/19 Primary care physician: Terrie Clifford MD Discharge provider: Shady Melton MD Summary Discharge Diagnosis: Acute appendicitis Hospital Course: Patient presented with clinical findings of acute appendicitis which was confirmed with CT. Should she underwent a laparoscopic appendectomy which demonstrated acute non perforated appendicitis. Her postoperative hospital course was unremarkable. Time Spent with Patient Less than 30 minutes Exam Vital Signs (past 8 hours): - 05/19/19 02:15 05/19/19 05:21 05/19/19 08:10 Temperature 97.7 F 97.5 F L 98.3 F Pulse Rate 86 60 78 Respiratory Rate 18 18 17 Blood Pressure 116/58 L 102/64 111/67 Pulse Oximetry 100 98 98 Oxygen Delivery Method Room Air Oxygen Flow Rate 0 Narrative Exam Narrative: General adult female in no acute distress alert and oriented Chest clear to auscultation bilaterally Cardiac regular rate and rhythm Abdomen appropriately tender to palpation. Incisions clean dry intact. Objective Labs Result Diagrams: 05/19/19 05:58 05/18/19 13:00 Labs: Laboratory Results - last 24 hr 05/18/19 05/18/19 05/18/19 13:00 13:00 13:00 WBC 16.3 H RBC 4.69 Hgb 15.8 Hct 45.8 MCV 97.7 MCH 33.8 MCHC 34.5 RDW 13.9 Plt Count 361 Neut % (Auto) 85.3 H Lymph % (Auto) 7.0 L [place] % (Auto) 7.5 Eos % (Auto) 0.0 L Baso % (Auto) 0.2 Neut # (Auto) 24553 H Lymph # (Auto) 1100 [place] # (Auto) 1200 H Eos # (Auto) 0 Baso # (Auto) 0 Sodium 139 Potassium 3.6 Chloride 102 Carbon Dioxide 25 BUN 10 Creatinine 0.80 Estimated GFR > 60.0 BUN/Creatinine Ratio 12.5 Glucose 118 H Calcium 9.7 Total Bilirubin 1.8 H AST 23 ALT 40 Alkaline Phosphatase 71 Total Protein 7.8 Albumin 4.7 Globulin 3.1 Albumin/Globulin Ratio 1.5 Lipase 53 Urine RBC None seen Urine WBC 5-10/hpf H Ur Squamous Epith Cells 5-10 /hpf H Urine Bacteria Many (>30) H Ur Culture Indicated? Cult not indicated Urine Test 05/18/19 05/19/19 13:00 05:58 WBC 16.9 H RBC 4.24 Hgb 14.3 Hct 42.3 MCV 99.8 MCH 33.6 MCHC 33.7 RDW 13.7 Plt Count 318 Neut % (Auto) 94.5 H Lymph % (Auto) 3.7 L [place] % (Auto) 1.7 L Eos % (Auto) 0.0 L Baso % (Auto) 0.1 Neut # (Auto) 91284 H Lymph # (Auto) 600 L [place] # (Auto) 300 Eos # (Auto) 0 Baso # (Auto) 0 Sodium Potassium Chloride Carbon Dioxide BUN Creatinine Estimated GFR BUN/Creatinine Ratio Glucose Calcium Total Bilirubin AST ALT Alkaline Phosphatase Total Protein Albumin Globulin Albumin/Globulin Ratio Lipase Urine RBC Urine WBC Ur Squamous Epith Cells Urine Bacteria Ur Culture Indicated? Urine Test Negative Discharge Plan Discharge Plan Patient Disposition: Home Discharge comment: Status post laparoscopic appendectomy Discharge Med Rec/Prescriptions Prescriptions: New ibuprofen 400 mg Tablet 400 mg PO Q8HR PRN (Reason: Pain, Mild (1-3)) Qty: 30 RF: 0 oxycodone 10 mg tablet 10 mg PO Q4-6H PRN (Reason: pain) Qty: 30 RF: 0 ondansetron HCl [Zofran] 8 mg tablet 8 mg PO TID PRN (Reason: nausea and vomiting) Qty: 8 RF: 0 Continued medroxyprogesterone 150 MG/1 ML suspension 150 mg IM [id number] Qty: 0 RF: 0 cyclobenzaprine 10 mg tablet 10 mg PO BID PRN (Reason: severe spasms) RF: 0 cetirizine 10 mg tablet 10 mg PO DAILY PRN (Reason: Allergy Symptoms) RF: 0 multivitamin Tablet 1 tab PO DAILY RF: 0 cholecalciferol (vitamin D3) [Vitamin D3] 400 unit Tablet,Chewable 1 tab PO DAILY RF: 0 topiramate 25 mg tablet 50 mg PO QPM RF: 0 duloxetine 60 mg capsule,delayed release(DR/EC) 60 mg PO DAILY RF: 0 doxepin 10 mg capsule 20 mg PO BEDTIME MDD anxiety RF: 0 mometasone 50 mcg/actuation spray,non-aerosol 2 spray NASAL DAILY RF: 0 Follow up/Referrals: Terrie Clifford MD [Primary Care Provider] - Shady Melton MD [Physician] - (FU 2 weeks) Provider Discharge Instructions Diet: Regular Skin/Wound/Dressing Care Report to your healthcare provider any signs of infection, such as:: chills, fever, increased pain, unusual drainage and unusual redness Other wound treatment: Ok to shower but avoid soaking incisions in tub for 1 week Visit Report/Discharge Packet Instructions: DI for an Appendectomy, DI for Laparoscopy, Ondansetron, Oxycodone, [facility]: Wound Care Stand Alone Forms: Surgery Discharge Visit Report Forms: Stroke Signs & Symptoms Discharge Data Primary Care Provider: Terrie Clifford Attending Provider: Shady Melton Admit Date/Time: 05/18/19 16:25 Discharges patient from system. Discharge Date/Time: 05/19/19 18:45
--- NOTE | 2019-05-19 10:53 | PC.NURSE ---
Addendum entered by Rossana Fuentes R.N. 05/19/19 14:45: PAIN/GI - pt states pain improved after earlier oxycodone, able ambul hallway w/spouse standby, discussed nausea, improved after taking in fluids and crackers at lunch, discussed with and new script rec'd for zofran. Spouse given scripts for zofran and oxycodone to take to family pharmacy. Addendum entered by Rossana Fuentes R.N. 05/19/19 13:47: GI/PAIN - After taking sips, crackers at lunch, given 10mg oxycodone for abd discomfort 5 on scale 0/10, pt will call if ret of nausea. Addendum entered by Rossana Fuentes R.N. 05/19/19 11:52: GI - some underlying nausea returned after pt ambulated, discussed medications, given ashkan gayle and crackers. Original Note: AM NOTE - pt awakened for breakfast, states last night was interesting, did not sleep much, states earlier norco tabs did not relieve her abd discomfort, given 2mg iv morphine, that did relieve discomfort,abd soft w/bonded incisions w/o drainage, started full liq w/some nausea after meal, given 4mg iv zofran the provided relief, later am, up ambul hallway w/fund accountant standby, gait steady.
[2019-05-19] MEDS: OXYCODONE IR 5 MG TABLET 10 MG PO ×2 (12:40→18:28)
[2019-05-19] MEDS: SODIUM CHLORIDE 0.9% FLUSH 10 ML IV (16:54)
== END 2019-05-19 18:45 | disposition home or self-care (01) ==
LOC: ED 12:42 → AC 16:26
PROVIDERS: Admitting Provider Surgery; Emergency Provider Nurse Practitioner; PCP Family Medicine; Visit Provider Surgery
PROC: 0DTJ4ZZ Resection of Appendix, Percutaneous Endoscopic Approach (ICD-10-PCS; CPT 44970; principal; 2019-05-18 19:00)
DX: K37 Unspecified appendicitis (principal); R10.31 Right lower quadrant pain
CPT/HCPCS: 44970; 36591; 74177; 80053; 81003; 81015; 81025; 82962; 83690; 85025; 94762; 96361; 96365; 96372; 96375; 96376; 99220; 99284; 99285; G0378; J1100; J1650; J1885; J2270; J2405; J2543; J2704; J3010; Q9967

== ENCOUNTER 2019-06-23 18:40 | Emergency (ER) | payer OTHER, MEDICAID, SELFPAY ==
[2019-05-18 17:29] VITALS: BMI 31.6
[2019-06-23 19:05] VITALS: BP 121/83; PULSE 84; RESP 16; TEMP 36.5; O2SAT 100; BMI 31.8
--- NOTE | 2019-06-23 20:28 | ED_ITS ---
HPI - Abdominal Pain General Chief Complaint: Abdominal Pain Stated Complaint: ABD PAIN CRAMPING Time Seen by Provider: 06/23/19 20:25 Source: patient Mode of arrival: ambulatory Limitations: no limitations History of Present Illness HPI narrative: 39-year-old female nonsmoker with history of anxiety and laparoscopic appendectomy about a month ago presents with a chief complaint of some episodes of cramping and midline anterior abdominal wall pain the course of the day or so. She denies any fever, chills nor nausea or vomiting. She denies any significant or sharp pain. She states that she followed her postop instructions quite well and only recently increased her activity level at which point she started having the symptoms. She is passing gas and having bowel movements without difficulty. Her pain is better with rest or lying flat and worsens while sitting up and leaning forward. She contacted her surgeon's office and was instructed to presents to the emergency department for evaluation MD complaint: abdominal pain Onset (ago): day(s) Pain Consistency: intermittent Location: periumbilical Severity: mild Quality: cramping Radiation: none Relieving factors: rest Exacerbating factors: movement Context: recent surgery/procedure Associated symptoms: denies other symptoms Related Data Home Medications Medication Instructions Recorded Confirmed medroxyprogesterone 150 mg IM [id number] #[id number] 03/07/11 06/01/19 doxepin 10 mg capsule 20 mg PO BEDTIME cap MDD anxiety 05/10/19 06/01/19 duloxetine 60 mg capsule,delayed 60 mg PO DAILY 05/10/19 06/01/19 release mometasone 50 mcg/actuation nasal 2 spray NASAL DAILY 05/10/19 06/01/19 spray topiramate 25 mg tablet 50 mg PO QPM tab 05/10/19 06/01/19 cetirizine 10 mg PO DAILY PRN 05/18/19 06/01/19 cholecalciferol (vitamin D3) 1 tab PO DAILY 05/18/19 06/01/19 [Vitamin D3] cyclobenzaprine 10 mg PO BID PRN 05/18/19 06/01/19 multivitamin 1 tab PO DAILY 05/18/19 06/01/19 Previous Rx's Medication Instructions Recorded ibuprofen 400 mg PO Q8HR PRN #30 tab 05/19/19 ondansetron HCl [Zofran] 8 mg PO TID PRN #8 tab 05/19/19 oxycodone 10 mg PO Q4-6H PRN #30 tab 05/19/19 Allergies Allergy/AdvReac Type Severity Reaction Status Date / Time red dye Allergy Verified 06/23/19 19:10 Review of Systems Constitutional Constitutional: Denies chills, Denies fatigue, Denies fever(s), Denies frequent falls, Denies lethargy and Denies weakness Eyes Eyes: Denies change in vision, Denies eye discharge, Denies irritation and Denies loss of vision ENT Ears, Nose, Mouth, and Throat: Denies change in voice, Denies dizziness, Denies neck pain, Denies sore throat and Denies throat swelling Cardiovascular Cardiovascular: Denies chest pain, Denies irregular heart rhythm, Denies lightheadedness, Denies palpitations, Denies dyspnea, Denies dyspnea on exertion and Denies orthopnea Respiratory Respiratory: Denies cough, Denies dyspnea, Denies dyspnea on exertion and Denies wheezing Gastrointestinal Gastrointestinal: Reports abdominal pain, Denies change in bowel habits, Denies diarrhea, Denies nausea and Denies vomiting Genitourinary Genitourinary: Denies hematuria, Denies flank pain, Denies urinary incontinence and Denies urinary urgency Musculoskeletal Musculoskeletal: Denies back pain, Denies muscle weakness, Denies neck pain, Denies numbness and Denies tingling Integumentary/Breasts Skin/Breast: Denies pruritus, Denies erythema, Denies rash and Denies wounds Neurologic Neurologic: Denies behavioral changes, Denies confusion, Denies dizziness, Denies frequent falls, Denies loss of vision, Denies numbness, Denies tingling and Denies weakness Psychiatric Psychiatric: Denies anxiety, Denies behavioral changes, Denies confusion, Denies depression, Denies homicidal ideation and Denies suicidal ideation Endocrine Endocrine: Denies fatigue, Denies flushing and Denies palpitations Hematologic/Lymphatic Hematologic/Lymphatic: Denies easy bruising Allergic/Immunologic Allergic/Immunologic: Denies urticaria, Denies throat swelling and Denies w heezing [facility] Medical History No significant medical problems (Acute) Social History household members: family Smoking Status: Former smoker Social History household members: family Smoking Status: Former smoker Exam Narrative Exam Narrative: GENERAL: [39] year old patient appears stated age. Well- nourished, well-developed patient, in mild distress. HEAD: Atraumatic. Normocephalic. EYES: Pupils equal round and reactive. Extraocular motions intact. No scleral icterus. No injection or drainage. ENT: Nose without bleeding, purulent drainage. Throat without erythema, ton sillar hypertrophy or exudate. Airway patent. NECK: Trachea midline. Non tender CARDIOVASCULAR: Regular rate and rhythm without murmurs, gallops, or rubs. RESPIRATORY: Clear to auscultation. Breath sounds equal bilaterally. No wheezes, rales, or rhonchi. GASTROINTESTINAL: Abdomen soft, non-tender, nondistended. Incisions are clean, dry and intact, no fluctuance, drainage, erythema or induration, normal bowel sounds EXTREMITIES: No edema or joint tenderness. BACK: Nontender without deformity or crepitance. No flank tenderness. NEURO: AOx3. SKIN: No rash or erythema of visible areas Initial Vital Signs Initial Vital Signs: Vital Signs Temperature 97.7 F 06/23/19 19:05 Pulse Rate 84 06/23/19 19:05 Respiratory Rate 16 06/23/19 19:05 Blood Pressure 121/83 06/23/19 19:05 Pulse Oximetry 100 06/23/19 19:05 Course Consultations Consultation #1: Discussion with patient's general surgeon including history, physical, labs and imaging. We discussed the low likelihood postoperative complications such as abscess or infection given normal labs, reassuring exam and lack of systemic findings Vital Signs Vital signs: Vital Signs - 8 hr 06/23/19 19:05 Temperature 97.7 F Pulse Rate 84 Respiratory Rate 16 Blood Pressure 121/83 Pulse Oximetry 100 MDM - Abdominal Pain Lab Data Result diagrams: 06/23/19 20:48 06/23/19 20:48 Labs: Lab Results 06/23/19 06/23/19 Range/Units 20:48 20:48 WBC 9.7 (4.5-11.0) X10^3/uL RBC 4.57 (4.0-5.2) X10^6/uL Hgb 15.7 (12.0-16.0) g/dL Hct 44.9 (36-46) % MCV 98.3 (80-100) fL MCH 34.4 H (26-34) PG MCHC 35.0 (30-36) % RDW 13.9 (11.6-14.8) % Plt Count 297 (150-400) X10^3/uL Neut % (Auto) 49.3 L (50-75) % Lymph % (Auto) 42.3 H (25-40) % [place] % (Auto) 6.5 (3-14) % Eos % (Auto) 1.1 L (2-4) % Baso % (Auto) 0.8 (0-2) % Neut # (Auto) 4800 (3802-0906) /uL Lymph # (Auto) 4100 (5818-9430) /uL [place] # (Auto) 600 (0-900) /uL Eos # (Auto) 100 (0-450) /uL Baso # (Auto) 100 (0-100) /uL Sodium 141 (137-145) mmol/L Potassium 3.9 (3.4-5.1) mmol/L Chloride 106 (98-107) mmol/L Carbon Dioxide 22 (22-32) mmol/L BUN 13 (7-17) mg/dL Creatinine 0.90 (0.52-1.04) mg/dL Estimated GFR > 60.0 (>60) mL/min BUN/Creatinine Ratio 14.4 (6-22) Glucose 80 (70-100) mg/dL Calcium 9.6 (8.4-10.2) mg/dL Total Bilirubin 0.9 (0.2-1.3) mg/dL AST 32 (14-36) IU/L ALT 33 (9-52) IU/L Alkaline Phosphatase 61 (38-126) U/L Total Protein 7.9 (6.3-8.2) g/dL Albumin 4.8 (3.5-5.0) g/dL Globulin 3.1 (1.7-4.1) g/dL Albumin/Globulin Ratio 1.5 (1.0-2.8) Lipase 131 (23-300) U/L Point of care testing: Urine Dip Bedside Urine Glucose Negative Urine Specific [place] 1.030 Bedside Urine Occult Blood - Negative Bedside Urine pH 5.5 Imaging Data Abdominal x-ray: Radiologist's impression: [facility] [address] [place] [address] XRay Report Signed Patient: Irina Florian LMR#: [id number] : 1980Acct:[id number] Age/Sex: 39 / FDate of Service: 06/23/19 Loc: ED Accession Number: [id number] Procedure: XR acute abdomen series Ordering Provider: Alon Pearson D.O. PROCEDURE: XR ACUTE ABDOMEN SERIES INDICATIONS: Abdominal pain TECHNIQUE: One view chest and two views of the abdomen were acquired. COMPARISON: None. FINDINGS: Surgical changes and devices: Surgical staple and projecting in the right lower quadrant.. Chest: Lungs are clear. Heart size is normal. No pleural effusions. No pneumoperitoneum. Abdomen: Bowel gas pattern is normal. No suspicious calcifications. Visualized solid organ contours appear normal. Bones: No suspicious bony lesions. IMPRESSION: No specific evidence of bowel obstruction seen at this time although if the patient's symptoms do not improve, continued surveillance with abdominal series radiographs could be performed. Dictated by: Doug Camejo M.D. on 06/23/2019 at 21:08 Approved by: Doug Camejo M.D. on 06/23/2019 at 21:09 [facility] Narrative Medical decision making narrative: Multiple etiologies for patient's symptoms considered including: [Postsurgical pain from scar tissue versus constipation versus small-bowel obstruction versus postop infection such as abscess versus o ther] Patient's symptoms improved or duration of stay with above-stated therapies. Findings and discharge diagnosis discussed with patient/family followed by verbalization of understanding Return precautions discussed with patient/family whom verbalize understanding. Discharge Plan Departure Patient Disposition: Home Clinical Impression: Abdominal pain Qualifiers: Abdominal location: periumbilical Qualified Code(s): R10.33 - Periumbilical pain Discharge Date/Time: 06/23/19 22:05 Instructions: DI for Abdominal Pain-Adult Activity Restrictions/Additional Instructions: *You have been diagnosed with [ post surgical pain ] *What to do: *Take medications as directed *Follow up with your primary care provider in 2-3 days, call for an appointment. Let them know you were seen in the Emergency Department and that we ask that you be seen in follow up *Return to ER if you should have any new, worsening or concerning symptoms Prescriptions: No Action medroxyprogesterone 150 MG/1 ML suspension 150 mg IM [id number] Qty: 0 RF: 0 cyclobenzaprine 10 mg tablet 10 mg PO BID PRN (Reason: severe spasms) RF: 0 cetirizine 10 mg tablet 10 mg PO DAILY PRN (Reason: Allergy Symptoms) RF: 0 multivitamin Tablet 1 tab PO DAILY RF: 0 cholecalciferol (vitamin D3) [Vitamin D3] 400 unit Tablet,Chewable 1 tab PO DAILY RF: 0 ibuprofen 400 mg Tablet 400 mg PO Q8HR PRN (Reason: Pain, Mild (1-3)) Qty: 30 RF: 0 oxycodone 10 mg tablet 10 mg PO Q4-6H PRN (Reason: pain) Qty: 30 RF: 0 ondansetron HCl [Zofran] 8 mg tablet 8 mg PO TID PRN (Reason: nausea and vomiting) Qty: 8 RF: 0 topiramate 25 mg tablet 50 mg PO QPM RF: 0 duloxetine 60 mg capsule,delayed release(DR/EC) 60 mg PO DAILY RF: 0 doxepin 10 mg capsule 20 mg PO BEDTIME MDD anxiety RF: 0 mometasone 50 mcg/actuation spray,non-aerosol 2 spray NASAL DAILY RF: 0 Referrals: Terrie Clifford MD [Primary Care Provider] -
--- NOTE | 2019-06-23 20:38 | DI.RAD.S_ITS ---
PROCEDURE: XR ACUTE ABDOMEN SERIES INDICATIONS: Abdominal pain TECHNIQUE: One view chest and two views of the abdomen were acquired. COMPARISON: None. FINDINGS: Surgical changes and devices: Surgical staple and projecting in the right lower quadrant.. Chest: Lungs are clear. Heart size is normal. No pleural effusions. No pneumoperitoneum. Abdomen: Bowel gas pattern is normal. No suspicious calcifications. Visualized solid organ contours appear normal. Bones: No suspicious bony lesions. IMPRESSION: No specific evidence of bowel obstruction seen at this time although if the patient's symptoms do not improve, continued surveillance with abdominal series radiographs could be performed. Dictated by: Doug Camejo M.D. on 06/23/2019 at 21:08 Approved by: Doug Camejo M.D. on 06/23/2019 at 21:09
[2019-06-23 20:55] LABS: Add Manual Diff / Slide Review NO; Basophils Absolute Auto 100 /uL (0-100); Basophils Percent Auto 0.8 % (0-2); Eosinophils Absolute Auto 100 /uL (0-450); Eosinophils Percent Auto 1.1 % (2-4); Hematocrit 44.9 % (36-46); Hemoglobin 15.7 g/dL (12.0-16.0); Lymphocytes Absolute Auto 4100 /uL (1100-4500); Lymphocytes Percent Auto 42.3 % (25-40); Mean Corpuscular Hemoglobin 34.4 PG (26-34); Mean Corpuscular Volume 98.3 fL (80-100); Monocytes Absolute Auto 600 /uL (0-900); Monocytes Percent Auto 6.5 % (3-14); Neutrophils Absolute Auto 4800 /uL (1500-7000); Neutrophils Percent Auto 49.3 % (50-75); Platelet Count 297 X10^3/uL (150-400); Red Blood Cell Count 4.57 X10^6/uL (4.0-5.2); Red Cell Distribution Width 13.9 % (11.6-14.8); White Blood Cell Count 9.7 X10^3/uL (4.5-11.0)
[2019-06-23 21:05] VITALS: BP 105/69; PULSE 81; RESP 15; O2SAT 100
[2019-06-23 21:09] LABS: Alanine Aminotransferase 33 IU/L (9-52); Albumin 4.8 g/dL (3.5-5.0); Albumin Globulin Ratio 1.5 (1.0-2.8); Alkaline Phosphatase 61 U/L (38-126); Aspartate Aminotransferase 32 IU/L (14-36); BUN Creatinine Ratio 14.4 (6-22); Bilirubin Total 0.9 mg/dL (0.2-1.3); Blood Urea Nitrogen 13 mg/dL (7-17); Calcium 9.6 mg/dL (8.4-10.2); Carbon Dioxide 22 mmol/L (22-32); Chloride 106 mmol/L (98-107); Estimated Glomerular Filt Rate > 60.0 mL/min (>60); Globulin 3.1 g/dL (1.7-4.1); Glucose 80 mg/dL (70-100); HEMOLYSIS 48 (0-50); Lipase 131 U/L (23-300); Potassium 3.9 mmol/L (3.4-5.1); Sodium 141 mmol/L (137-145); Total Protein 7.9 g/dL (6.3-8.2)
== END 2019-06-23 22:05 | disposition home or self-care (01) ==
PROVIDERS: Emergency Provider Emergency Medicine; PCP Family Medicine
DX: R10.33 Periumbilical pain (principal)
CPT/HCPCS: 36415; 74022; 80053; 81003; 83690; 85025; 99282; 99284

== ENCOUNTER → 2019-06-27 18:46 | Outpatient (CLI) | payer OTHER, MEDICAID, SELFPAY ==
[2019-05-18 17:29] VITALS: BMI 31.6
--- NOTE | 2019-06-27 18:49 | DI.MRI.S_ITS ---
PROCEDURE: MR CERVICAL SPINE WO CON INDICATIONS: neck pain TECHNIQUE: Noncontrast sagittal T1 spin echo and T2 fast spin echo, sagittal STIR, foraminal oblique sagittal T2 fast spin echo, and axial gradient echo or T2 fast spin echo through the cervical spine. COMPARISON: None. FINDINGS: Image quality: Excellent. Alignment and Curvature: There is normal bony alignment. Bone Marrow: Marrow demonstrates normal overall signal. Spinal Cord: Visualized spinal cord has normal size and signal. No cerebellar tonsillar herniation. Paraspinous Soft Tissues: No paravertebral masses. Prevertebral soft tissues are normal in thickness. C2-C3: Normal appearance. C3-C4: Loss of disc signal. Mild to moderate diffuse disc bulge. Mild narrowing of the central canal. Mild left neural foraminal narrowing. No neural compression. C4-C5: Loss of disc signal. Minimal, diffuse disc bulge. No central stenosis. No neural foraminal narrowing. No neural compression. C5-C6: Loss of disc signal and slight loss of disc height. Mild to moderate diffuse disc bulge. Moderate narrowing of the central canal. Mild left neural foraminal narrowing. No neural compression. C6-C7: Loss of disc signal. Mild, diffuse disc bulge. Mild narrowing of the central canal. No neural foraminal narrowing. No neural compression. C7-T1: Normal appearance. Partially visualized T1-T2 central disc protrusion is noted there is central disc protrusion appears to compress the upper thoracic cervical spinal cord. IMPRESSION: 1. Multilevel degenerative disc disease. 2. Moderate C5-C6 central canal narrowing. Mild to moderate C3-C4 central canal narrowing. Mild C6-C7 central canal narrowing. 3. Mild left C3-C4 and C5-C6 neural foraminal narrowing. 4. Partially visualized T1-T2 central disc protrusion appears to compress the anterior margin of the upper thoracic spinal cord. Recommend dedicated MRI of the thoracic spine for definitive characterization if clinically indicated. Dictated by: Shonda Nicholas MD, PhD on 06/28/2019 at 10:36 Approved by: Shonda Nicholas MD, PhD on 06/28/2019 at 10:57
== END ==
PROVIDERS: PCP Nurse Practitioner; Visit Provider Registered Nurse
DX: M50.31 Other cervical disc degeneration, high cervical region (principal); M48.02 Spinal stenosis, cervical region; G89.29 Other chronic pain
CPT/HCPCS: 72141

== ENCOUNTER 2019-08-22 08:20 | Outpatient (CLI) | payer OTHER, MEDICAID, SELFPAY ==
[2019-05-18 17:29] VITALS: BMI 31.6
[2019-08-22] VITALS (7 sets, daily range): BP systolic 113–125; BP diastolic 72–82; PULSE 77–100; RESP 15–16; TEMP 36.6; O2SAT 98–100
--- NOTE | 2019-08-22 08:21 | DI.RAD.S_ITS ---
PROCEDURE: PAIN C/T INTERLAMINAR INJECT INDICATIONS: RADICULOPATHY FINDINGS: Fluoroscopic spot filming was performed to verify placement of spinal needles at the T1-T2 level(s), as labeled on the films. IMPRESSION: T1-T2 interlaminal needle placement. Dictated by: Eddie Christy M.D. on 08/22/2019 at 13:14 Approved by: Eddie Christy M.D. on 08/22/2019 at 13:15
[2019-08-22] MEDS: MIDAZOLAM 5 MG/5 ML VIAL IV (09:10)
[2019-08-22] MEDS: fentaNYL 100 MCG/2 ML INJ 50 MCG IV (09:10)
[2019-08-22] MEDS: IOPAMIDOL 15 ML VIAL 3 ML INJ (09:18)
[2019-08-22] MEDS: LIDOCAINE 1% 20 ML 5 ML INJ (09:18)
[2019-08-22] MEDS: DEXAMETHASONE 10 MG/ML VIAL 30 MG INJ (09:19)
--- NOTE | 2019-08-22 09:34 | PC.NURSE ---
ACCEPTED CARE OF PT IN POST PROC AREA IN STABLE CONDITION.
--- NOTE | 2019-08-22 09:37 | P.PCN_ITS ---
Procedures Date/Time Date of procedure: 08/22/19 Time of procedure: 09:37 General Procedure description: Preop diagnosis: Thoracic stenosis with HNP Postprocedure diagnosis: Thoracic stenosis with HNP Physician: Joe Lennon D.O. Indications: Irina is referred by CONY Munoz for treatment of thoracic DDD/DJD with radiculopathy Description of procedure: Fluoroscopic guided, contrast controlled T1/2 translaminar epidural steroid i njection with conscious sedation. Following review of allergy review potential side effects and complications, including, but not necessarily limited to, infection, allergic reaction, local tissue breakdown, temporary as well as permanent nerve injury, stroke, paralysis and possible , the patient indicated that they understood and agreed to proceed. An informed consent document was signed by the patient, witnessed by the nurse, and placed in the patient's chart. Additionally other treatment options including modalities, medications and physical therapy were reviewed with the patient. After review of previous anaesthesic history and IV conscious sedation the patient was deemed safe to proceed with todays procedure with IV conscious sedation as ASA class II designation. Safety time-out was performed to confirm patient ID, procedure to be performed and site of procedure. IV sedation was accomplished with a combination of 1mg of Versed and 50mcg of Fentanyl administered by the RN after DO order, titrated to patient comfort during the course of the procedure while the patient remained responsive to all verbal commands In the prone position, following sterile prep and drape of the thoracic region the T1/2 translaminar space was identified fluoroscopically. The skin was anesthetized via 25 gauge with 1% lidocaine solution. At this point a 20 gauge epidural needle was atraumatically introduced and advanced under fluoroscopic guidance into the region of the T1/2 translaminar space depth was confirmed on lateral view. Radiographic data, including multiple fluoroscopic views of the thoracic spine, reveals spinal needle at the T1/2 translaminar space. Lateral views then showed the placement of the needle in the epidural space. Subsequent view show contrast material flowing superiorly and inferiorly in the epidural space. No vascular or intrathecal uptake is observed. At this point using loss of resistance technique with saline and the epidural space was entered. This was confirmed followed negative aspiration and injection of approximately 1.5cc of Isovue 200 showed excellent epidural flow without vascular or intrathecal uptake. At this point, 1cc of 1% lidocaine solution was admitted as a test dose and the patient was observed for an appropriate period of time without signs or symptoms of complications, including abdominal pain, shortness of breath, bilateral upper and lower extremity weakness, nausea and vomiting, prior to steroid injection. Subsequently, 3cc or 30mg of dexamethasone was then injected without incident. The patient tolerated the procedure well without signs of complications and subsequently was transferred to the recovery room for further monitoring. The patient was then transferred to the recovery area with their observed for an appropriate time after the injection. Patient reported a VAS score of 7 prior to the procedure and postprocedure VAS of 2. Total fluoroscopy time: 56.3 sec Total conscious sedation time: 24 min Joe Lennon D.O. Complications: none
--- NOTE | 2019-08-22 10:12 | PC.NURSE ---
Post procedure note: Time out at 0909. Medicated per provider orders. VSS, O2 sat WNL. Tolerated procedure well in prone position. Able to transfer from table to w/c without difficulties. pain level post procedure 03/27. Denied any unusual numbness or tingling. Transported for post procedure monitoring via w/c. Handoff report given to Yunior Pacheco RN
== END 2019-08-22 09:51 | disposition home or self-care (01) ==
LOC: RAD 08:20
PROVIDERS: PCP Nurse Practitioner; Visit Provider Physical Medicine & Rehabilitation
DX: M51.14 Intervertebral disc disorders with radiculopathy, thoracic region (principal); M48.04 Spinal stenosis, thoracic region; M47.24 Other spondylosis with radiculopathy, thoracic region
CPT/HCPCS: 62321; 99152; J1100; J2250; J3010

== ENCOUNTER 2020-09-30 13:45 | Emergency (ER) | payer OTHER, MEDICAID, SELFPAY ==
[2020-01-24 15:37] VITALS: BMI 31.6
[2020-09-30 13:50] VITALS: BP 136/88; PULSE 88; RESP 22; TEMP 36.8; O2SAT 100
[2020-09-30 15:25] LABS: Add Manual Diff / Slide Review NO; Basophils Absolute Auto 100 /uL (0-100); Basophils Percent Auto 1.2 % (0-2); Eosinophils Absolute Auto 100 /uL (0-450); Eosinophils Percent Auto 1.2 % (2-4); Hematocrit 43.7 % (36-46); Hemoglobin 14.9 g/dL (12.0-16.0); Lymphocytes Absolute Auto 3400 /uL (1100-4500); Lymphocytes Percent Auto 40.5 % (25-40); Mean Corpuscular HGB Conc 33.9 % (30-36); Mean Corpuscular Hemoglobin 33.6 PG (26-34); Mean Corpuscular Volume 98.9 fL (80-100); Monocytes Absolute Auto 600 /uL (0-900); Monocytes Percent Auto 7.1 % (3-14); Neutrophils Absolute Auto 4200 /uL (1500-7000); Platelet Count 354 X10^3/uL (150-400); Red Blood Cell Count 4.42 X10^6/uL (4.0-5.2); Red Cell Distribution Width 12.8 % (11.6-14.8); White Blood Cell Count 8.4 X10^3/uL (4.5-11.0)
[2020-09-30 15:27] LABS: INR 1.1 (0.9-1.3); Prothrombin Time 12.7 SECONDS (10.1-12.7)
[2020-09-30 15:32] LABS: Alanine Aminotransferase 45 IU/L (<35); Albumin 4.4 g/dL (3.5-5.0); Albumin Globulin Ratio 1.4 (1.0-2.8); Alkaline Phosphatase 61 U/L (38-126); Aspartate Aminotransferase 45 IU/L (14-36); BUN Creatinine Ratio 13.6 (6-22); Bilirubin Total 0.5 mg/dL (0.2-1.3); Blood Urea Nitrogen 11 mg/dL (7-17); Calcium 9.3 mg/dL (8.4-10.2); Carbon Dioxide 22 mmol/L (22-32); Chloride 108 mmol/L (98-107); Estimated Glomerular Filt Rate > 60.0 mL/min (>60); Globulin 3.2 g/dL (1.7-4.1); Glucose 106 mg/dL (70-100); HEMOLYSIS 42 (0-50); Potassium 3.9 mmol/L (3.4-5.1); Sodium 138 mmol/L (137-145); Total Protein 7.6 g/dL (6.3-8.2)
--- NOTE | 2020-09-30 15:58 | DI.CT.S_ITS ---
PROCEDURE: CT ANGIO HEAD AND NECK INDICATIONS: severe neck pain sp neck manipulation TECHNIQUE: Pre-contrast 4.5 mm thick sections acquired from the foramen magnum to the vertex. After the administration of intravenous contrast, 1 mm thick sections acquired from the aortic arch through the [place] of [place]. Post-contrast 4.5 mm thick sections then re-acquired from the foramen magnum to the vertex. 3-dimensional wxwtmwv-nybvuvruw-lqcjzzgscw (MIP) and/or volume rendering reformats were acquired of the central intracranial vasculature and neck separately. COMPARISON: None. FINDINGS: Image quality: Excellent. BRAIN: CSF spaces: Ventricles are normal in size and shape. Basal cisterns are patent. No extra-axial fluid collections. Brain: No midline shift. No intracranial bleeds or masses. Yuen-white matter interface appears intact. Skull and face: Calvarium and facial bones appear intact, without suspicious lesions. Orbits appear normal. Sinuses: Sinuses and mastoids are clear. HEAD CT ANGIOGRAPHY: Anterior circulation: Intracranial internal carotid arteries are normal in size and flow. The flow within the paired anterior cerebral arteries is normal and symmetric. The flow within the middle cerebral arteries is normal and symmetric. The anterior communicating artery is seen. No aneurysms are seen. Posterior circulation: Visualized portions of the vertebral arteries demonstrate normal caliber, and join to form a normal appearing basilar artery. Flow within the posterior cerebral arteries is normal and symmetric. No aneurysms are seen. The dural sinuses demonstrate normal postcontrast enhancement. NECK CT ANGIOGRAPHY: Carotid system: The great vessels demonstrate a conventional anatomy as they arise from the aortic arch. The origins of the common carotid arteries appear patent. The common carotid arteries demonstrate normal caliber and courses. The bifurcation regions are both widely patent. The internal carotid arteries demonstrate normal calibers and courses. Posterior circulation: The origins of the vertebral arteries both appear widely patent. The more superior extracranial portions of both vertebral arteries also demonstrate normal courses and calibers. They join to form a normal appearing basilar artery. Soft tissues: Visualized neck soft tissues demonstrate no suspicious abnormalities. Bones: No suspicious bony lesions. Visualized cervical spine appears normally aligned. IMPRESSION: 1. No acute intracranial disease process. 2. No large vessel occlusion, vascular stenosis, vascular dissection or aneurysm. Any quantitative measurements of stenosis were performed using NASCET criteria. Dictated by: Shonda Nicholas MD, PhD on 09/30/2020 at 17:05 Approved by: Shonda Nicholas MD, PhD on 09/30/2020 at 17:15
[2020-09-30 16:30] LABS: Pregnancy Test Serum,Qual Negative (Negative)
--- NOTE | 2020-09-30 17:04 | PC.NURSE ---
Pt angrily demending to know why DONOR SPECIALIST requested urine sample. I spoke with Elena Saldana, who cancelled the POC urine order as status had proven negative by serum preg. I clarified the situation with the Pt, who complained of a lot of confusion out there. I was unable to calm the Pt, who lept from the bed and rapidly walked to the toilet. Pt slammed the glass door upon returning to room.
[2020-09-30] MEDS: ONDANSETRON 4 MG/2 ML INJ IV (17:49)
[2020-09-30] MEDS: LIDOCAINE PATCH 1 EACH ADH..PATCH TOP (17:49)
[2020-09-30] MEDS: KETOROLAC 60 MG/2 ML VIAL 30 MG IV (17:49)
[2020-09-30] MEDS: CYCLOBENZAPRINE 10 MG TABLET PO (17:50)
[2020-09-30] MEDS: HYDROCODONE/ACET 5/325 TABLET 1 TAB PO (17:50)
--- NOTE | 2020-09-30 19:41 | ED.BACK ---
HPI - Back Pain/Injury <Elena Saldana, AIRCRAFT SKIN BURNISHER-BC - Last Filed: 09/30/20 19:59> General Chief Complaint: Back Pain/Injury Stated Complaint: Severe Neck Pain Time Seen by Provider: 09/30/20 15:47 Source: patient Mode of arrival: Ambulatory Limitations: no limitations History of Present Illness HPI Narrative: The patient is a 40-year-old female former smoker with history of neck pain presents with a chief complaint of severe neck pain after a neck adjustment by physical therapy. She has had physical therapy adjustment several days ago. She denies any new incontinence of bowel, incontinence of bladder or numbness in her groin. She states she has tried cyclobenzaprine with no relief. She states that the pain is very severe, going up her neck in over her head. She states this started immediately after her neck adjustment. She states that she has seen her primary care provider for this, but she is frustrated with what they are not doing. She states that she has had chronic neck pain for many years, at least 5 years. She states that she has had MRIs in the past. Related Data Home Medications Medication Instructions Recorded Confirmed medroxyprogesterone 150 mg IM [id number] #0 03/07/11 01/29/20 mometasone 50 mcg/actuation nasal 2 spray NASAL DAILY 05/10/19 01/29/20 spray topiramate 25 mg tablet 50 mg PO QPM tab 05/10/19 01/29/20 cetirizine 10 mg PO DAILY PRN 05/18/19 01/29/20 cyclobenzaprine 10 mg PO BID PRN 05/18/19 01/29/20 multivitamin 1 tab PO DAILY 05/18/19 01/29/20 pregabalin 150 mg capsule 300 mg PO BID cap 01/29/20 01/29/20 Previous Rx's Medication Instructions Recorded hydrocodone-acetaminophen [[place]] 1 tab PO Q4-6H PRN #7 tab 09/30/20 ketorolac 10 mg PO TID PRN #14 tab 09/30/20 lidocaine 1 patch TOPICAL DAILY PRN #15 ea 09/30/20 ondansetron 4 mg PO Q6H PRN #14 tab 09/30/20 tramadol 50 mg tablet 50 mg PO BID PRN #30 tab 09/30/20 Allergies Allergy/AdvReac Type Severity Reaction Status Date / Time red dye Allergy Verified 03/04/20 14:03 Review of Systems <RENÉE Spivey - Last Filed: 09/30/20 19:59> Review of Systems Narrative: GENERAL: Denies chills, fatigue, malaise, fever, sweats. HEENT: Denies sinus pain, ear pain, sore throat, difficulty swallowing, dizziness. RESPIRATORY: Denies dyspnea, cough, wheezing, hemoptysis, sputum. CARDIOVASCULAR: Denies chest pain, palpitations, orthopnea, edema, GASTROINTESTINAL: Denies nausea, vomiting, abdominal pain, diarrhea, constipation, melena. : Denies dysuria, frequency, incontinence, hematuria, urinary retention. MUSCULOSKELETAL: See HPI SKIN: Denies rash, skin lesions, or other NEUROLOGIC: See HPI PSYCHIATRIC: No concerning psychosocial issues. 12 point review of systems is negative except for those stated above Patient History <RENÉE Spivey - Last Filed: 09/30/20 19:59> Medical History Cervicogenic headache Herniated nucleus pulposus with myelopathy, thoracic No significant medical problems Paresthesia of upper extremity Surgical History History of appendectomy Family History Unknown No pertinent family history Social History household members: family Smoking Status: Former smoker Smoking Status: Former smoker alcohol intake frequency: a few times a week Substance Use Type: marijuana Exam <RENÉE Spivey - Last Filed: 09/30/20 19:59> Narrative Exam Narrative: GENERAL: This is a well-nourished, well-developed patient, appears uncomfortable. HEAD: Atraumatic. Normocephalic. No temporal or scalp tenderness. EYES: Pupils equal round and reactive. Extraocular motions intact. No scleral icterus. No injection or drainage. ENT: Nose without bleeding, purulent drainage or septal hematoma. Throat without erythema, tonsillar hypertrophy or exudate. Uvula midline. Airway patent. NECK: Trachea midline. No JVD or lymphadenopathy. Supple, nontender, no meningeal signs. CARDIOVASCULAR: Regular rate and rhythm RESPIRATORY: Clear to auscultation. Breath sounds equal bilaterally. No wheezes, rales, or rhonchi. No cough. No increased respiratory effort. No accessory muscle use. GASTROINTESTINAL: Abdomen soft, non-tender, nondistended. No hepato-splenomegaly, or palpable masses. No guarding. EXTREMITIES: No clubbing, cyanosis, or edema. No joint tenderness, effusion, or edema noted. BACK: Diffuse pain to palpation to cervical spine palpation, diffuse pain to palpation neck palpation without deformity or crepitance. No flank tenderness. NEURO: AOx3. Strength is equal upper extremities bilaterally. Stable gait. No gross cranial nerve deficit. Clear speech. SKIN: No rash or erythema on visible skin. Initial Vital Signs Initial Vital Signs: Vital Signs Temperature 98.2 F 09/30/20 13:50 Pulse Rate 88 09/30/20 13:50 Respiratory Rate 22 09/30/20 13:50 Blood Pressure 136/88 09/30/20 13:50 Pulse Oximetry 100 09/30/20 13:50 <Melissa Matias MD - Last Filed: 10/01/20 07:34> Initial Vital Signs Initial Vital Signs: Vital Signs Temperature 98.2 F 09/30/20 13:50 Pulse Rate 88 09/30/20 13:50 Respiratory Rate 22 09/30/20 13:50 Blood Pressure 136/88 09/30/20 13:50 Pulse Oximetry 100 09/30/20 13:50 Scores <RENÉE Spivey - Last Filed: 09/30/20 19:59> GCS Johnnie coma scale eye opening: Spontaneous Johnnie coma scale verbal response: Orientated Johnnie coma scale motor response: Obey commands Johnnie coma scale total score: 15 Course <RENÉE Spivey - Last Filed: 09/30/20 19:59> Orders Ordered: Discontinued Medications Hydrocodone Bitart/Acetaminophen (Hydrocodone/Acet 5/325 Tablet) 1 tab PO NOW ONE Stop: 09/30/20 17:43 Last Admin: 09/30/20 17:50 Dose: 1 tab Documented by: JESUS Cyclobenzaprine HCl (Cyclobenzaprine 10 Mg Tablet) 10 mg PO NOW ONE Stop: 09/30/20 17:42 Last Admin: 09/30/20 17:50 Dose: 10 mg Documented by: JESUS Ketorolac Tromethamine (Ketorolac 60 Mg/2 Ml Vial) 30 mg IV NOW ONE Stop: 09/30/20 17:25 Last Admin: 09/30/20 17:49 Dose: 30 mg Documented by: JESUS Lidocaine (Lidocaine Patch 1 Each Adh..Patch) 1 each TOP NOW ONE Stop: 09/30/20 17:25 Last Admin: 09/30/20 17:49 Dose: 1 each Documented by: JESUS Ondansetron HCl (Ondansetron 4 Mg/2 Ml Inj) 4 mg IV NOW ONE Stop: 09/30/20 17:41 Last Admin: 09/30/20 17:49 Dose: 4 mg Documented by: JESUS Vital Signs Vital signs: Vital Signs - 8 hr 09/30/20 13:50 Temperature 98.2 F Pulse Rate 88 Respiratory Rate 22 Blood Pressure 136/88 Pulse Oximetry 100 <Melissa Matias MD - Last Filed: 10/01/20 07:34> Orders Ordered: Discontinued Medications Hydrocodone Bitart/Acetaminophen (Hydrocodone/Acet 5/325 Tablet) 1 tab PO NOW ONE Stop: 09/30/20 17:43 Last Admin: 09/30/20 17:50 Dose: 1 tab Documented by: JESUS Cyclobenzaprine HCl (Cyclobenzaprine 10 Mg Tablet) 10 mg PO NOW ONE Stop: 09/30/20 17:42 Last Admin: 09/30/20 17:50 Dose: 10 mg Documented by: JESUS Ketorolac Tromethamine (Ketorolac 60 Mg/2 Ml Vial) 30 mg IV NOW ONE Stop: 09/30/20 17:25 Last Admin: 09/30/20 17:49 Dose: 30 mg Documented by: JESUS Lidocaine (Lidocaine Patch 1 Each Adh..Patch) 1 each TOP NOW ONE Stop: 09/30/20 17:25 Last Admin: 09/30/20 17:49 Dose: 1 each Documented by: JESUS Ondansetron HCl (Ondansetron 4 Mg/2 Ml Inj) 4 mg IV NOW ONE Stop: 09/30/20 17:41 Last Admin: 09/30/20 17:49 Dose: 4 mg Documented by: SMICHEAU Vital Signs Vital signs: Vital Signs - 8 hr 09/30/20 13:50 Temperature 98.2 F Pulse Rate 88 Respiratory Rate 22 Blood Pressure 136/88 Pulse Oximetry 100 MDM - Back Pain/Injury <SLICK SpiveyP- - Last Filed: 09/30/20 19:59> Lab Data Attestation: I reviewed the patient's lab results. Result diagrams: 09/30/20 14:49 09/30/20 14:49 Labs: Lab Results 09/30/20 09/30/20 09/30/20 Range/Units 14:49 14:49 14:49 WBC 8.4 (4.5-11.0) X10^3/uL RBC 4.42 (4.0-5.2) X10^6/uL Hgb 14.9 (12.0-16.0) g/dL Hct 43.7 (36-46) % MCV 98.9 (80-100) fL MCH 33.6 (26-34) PG MCHC 33.9 (30-36) % RDW 12.8 (11.6-14.8) % Plt Count 354 (150-400) X10^3/uL Neut % (Auto) 50.0 (50-75) % Lymph % (Auto) 40.5 H (25-40) % [place] % (Auto) 7.1 (3-14) % Eos % (Auto) 1.2 L (2-4) % Baso % (Auto) 1.2 (0-2) % Neut # (Auto) 4200 (1865-9726) /uL Lymph # (Auto) 3400 (7503-5952) /uL [place] # (Auto) 600 (0-900) /uL Eos # (Auto) 100 (0-450) /uL Baso # (Auto) 100 (0-100) /uL PT 12.7 (10.1-12.7) SECONDS INR 1.1 (0.9-1.3) Sodium 138 (137-145) mmol/L Potassium 3.9 (3.4-5.1) mmol/L Chloride 108 H (98-107) mmol/L Carbon Dioxide 22 (22-32) mmol/L BUN 11 (7-17) mg/dL Creatinine 0.81 (0.52-1.04) mg/dL Estimated GFR > 60.0 (>60) mL/min BUN/Creatinine Ratio 13.6 (6-22) Glucose 106 H (70-100) mg/dL Calcium 9.3 (8.4-10.2) mg/dL Total Bilirubin 0.5 (0.2-1.3) mg/dL AST 45 H (14-36) IU/L ALT 45 H (<35) IU/L Alkaline Phosphatase 61 (38-126) U/L Total Protein 7.6 (6.3-8.2) g/dL Albumin 4.4 (3.5-5.0) g/dL Globulin 3.2 (1.7-4.1) g/dL Albumin/Globulin Ratio 1.4 (1.0-2.8) Serum , Qual (Negative) 09/30/20 Range/Units 14:49 WBC (4.5-11.0) X10^3/uL RBC (4.0-5.2) X10^6/uL Hgb (12.0-16.0) g/dL Hct (36-46) % MCV (80-100) fL MCH (26-34) PG MCHC (30-36) % RDW (11.6-14.8) % Plt Count (150-400) X10^3/uL Neut % (Auto) (50-75) % Lymph % (Auto) (25-40) % [place] % (Auto) (3-14) % Eos % (Auto) (2-4) % Baso % (Auto) (0-2) % Neut # (Auto) (7571-0413) /uL Lymph # (Auto) (5497-0788) /uL [place] # (Auto) (0-900) /uL Eos # (Auto) (0-450) /uL Baso # (Auto) (0-100) /uL PT (10.1-12.7) SECONDS INR (0.9-1.3) Sodium (137-145) mmol/L Potassium (3.4-5.1) mmol/L Chloride (98-107) mmol/L Carbon Dioxide (22-32) mmol/L BUN (7-17) mg/dL Creatinine (0.52-1.04) mg/dL Estimated GFR (>60) mL/min BUN/Creatinine Ratio (6-22) Glucose (70-100) mg/dL Calcium (8.4-10.2) mg/dL Total Bilirubin (0.2-1.3) mg/dL AST (14-36) IU/L ALT (<35) IU/L Alkaline Phosphatase (38-126) U/L Total Protein (6.3-8.2) g/dL Albumin (3.5-5.0) g/dL Globulin (1.7-4.1) g/dL Albumin/Globulin Ratio (1.0-2.8) Serum , Qual Negative (Negative) Imaging Data CTA - brain/neck: Radiologist's Impression: [address] [place] [id number] Scan ReportSigned Patient: Irina Florian LMR#: [id number]: 1980Acct:[id number]/Sex: 40 / FDate of Service: 09/30/20Loc: EDAccession Number: [id number] Procedure: CT angio head and neck Ordering Provider: [facility] Saldana [facility] PROC[facility]: CT ANGIO HEAD AND NECK INDICATIONS: severe neck pain sp neck manipulation TECHNIQUE: Pre-contrast 4.5 mm thick sections acquired from the foramen magnum to the vertex. After the administration of intravenous contrast, 1 mm thick sections acquired from the aortic arch through the [place] of [place]. Post-contrast 4.5 mm thick sections then re-acquired from the foramen magnum to the vertex. 3-dimensional kpmdrai-vjmertrbr-lablxswolk (MIP) and/or volume rendering reformats were acquired of the central intracranial vasculature and neck separately. COMPARISON: None. FINDINGS: Image quality: Excellent. BRAIN: CSF spaces: Ventricles are normal in size and shape. Basal cisterns are patent. No extra-axial fluid collections. Brain: No midline shift. No intracranial bleeds or masses. Yuen-white matter interface appears intact. Skull and face: Calvarium and facial bones appear intact, without suspicious lesions. Orbits appear normal. Sinuses: Sinuses and mastoids are clear. HEAD CT ANGIOGRAPHY: Anterior circulation: Intracranial internal carotid arteries are normal in size and flow. The flow within the paired anterior cerebral arteries is normal and symmetric. The flow within the middle cerebral arteries is normal and symmetric. The anterior communicating artery is seen. No aneurysms are seen. Posterior circulation: Visualized portions of the vertebral arteries demonstrate normal caliber, and join to form a normal appearing basilar artery. Flow within the posterior cerebral arteries is normal and symmetric. No aneurysms are seen. The dural sinuses demonstrate normal postcontrast enhancement. NECK CT ANGIOGRAPHY: Carotid system: The great vessels demonstrate a conventional anatomy as they arise from the aortic arch. The origins of the common carotid arteries appear patent. The common carotid arteries demonstrate normal caliber and courses. The bifurcation regions are both widely patent. The internal carotid arteries demonstrate normal calibers and courses. Posterior circulation: The origins of the vertebral arteries both appear widely patent. The more superior extracranial portions of both vertebral arteries also demonstrate normal courses and calibers. They join to form a normal appearing basilar artery. Soft tissues: Visualized neck soft tissues demonstrate no suspicious abnormalities. Bones: No suspicious bony lesions. Visualized cervical spine appears normally aligned. IMPRESSION: 1. No acute intracranial disease process. 2. No large vessel occlusion, vascular stenosis, vascular dissection or aneurysm. Any quantitative measurements of stenosis were performed using NASCET criteria. Dictated by: Shonda Nicholas MD, PhD on 09/30/2020 at 17:05 Approved by: Shonda Nicholas MD, PhD on 09/30/2020 at 17:15 [facility] Narrative Medical decision making narrative: The patient is a 40-year-old female with history of chronic neck pain who presents with a chief complaint of worsened neck pain. She states it happened after a physical therapy adjusted her neck. Thus given her increased neck pain after adjustment, obtained a CT to rule out dissection. This came back negative. The patient was initially started with IV, lab work in triage due to department dizziness. She expressed some frustration with the fact that she was not treated for pain right away, and I discussed the importance of neurological evaluation, the fact that ketorolac can increased bleeding etcetera. Patient was then given lidocaine patch, cyclobenzaprine, ketorolac and [place]. She felt much improved after this. Patient expressed frustration with chronic neck pain. Patient denied any red flag symptoms such as incontinence of bowel, incontinence of bladder or numbness in her groin. Discussed at length that these are strict return precautions. Patient declines rectal exam. Prescriptions were provided. The patient appeared frustrated that prescriptions were to be sent electronically, so I called the pharmacy and verified the receipt. Patient also appeared to be frustrated that I could not do pre packs once it was found that her initial pharmacy of preference was closed at 7:00 p.m.. I discussed that I am unable to do so unless pharmacies are closed. Offered to send prescriptions to a different pharmacy, patient elected [facility] in [place], so I called and verified their prescriptions received as well. Encouraged her to come back for any acute concerns such as incontinence of bowel, incontinence of bladder or numbness in her groin. Patient has no questions or concerns upon discharge. Ambulates throughout her stay. <Melissa Matias MD - Last Filed: 10/01/20 07:34> Lab Data Labs: Lab Results 09/30/20 09/30/20 09/30/20 Range/Units 14:49 14:49 14:49 WBC 8.4 (4.5-11.0) X10^3/uL RBC 4.42 (4.0-5.2) X10^6/uL Hgb 14.9 (12.0-16.0) g/dL Hct 43.7 (36-46) % MCV 98.9 (80-100) fL MCH 33.6 (26-34) PG MCHC 33.9 (30-36) % RDW 12.8 (11.6-14.8) % Plt Count 354 (150-400) X10^3/uL Neut % (Auto) 50.0 (50-75) % Lymph % (Auto) 40.5 H (25-40) % [place] % (Auto) 7.1 (3-14) % Eos % (Auto) 1.2 L (2-4) % Baso % (Auto) 1.2 (0-2) % Neut # (Auto) 4200 (2667-7224) /uL Lymph # (Auto) 3400 (5539-1597) /uL [place] # (Auto) 600 (0-900) /uL Eos # (Auto) 100 (0-450) /uL Baso # (Auto) 100 (0-100) /uL PT 12.7 (10.1-12.7) SECONDS INR 1.1 (0.9-1.3) Sodium 138 (137-145) mmol/L Potassium 3.9 (3.4-5.1) mmol/L Chloride 108 H (98-107) mmol/L Carbon Dioxide 22 (22-32) mmol/L BUN 11 (7-17) mg/dL Creatinine 0.81 (0.52-1.04) mg/dL Estimated GFR > 60.0 (>60) mL/min BUN/Creatinine Ratio 13.6 (6-22) Glucose 106 H (70-100) mg/dL Calcium 9.3 (8.4-10.2) mg/dL Total Bilirubin 0.5 (0.2-1.3) mg/dL AST 45 H (14-36) IU/L ALT 45 H (<35) IU/L Alkaline Phosphatase 61 (38-126) U/L Total Protein 7.6 (6.3-8.2) g/dL Albumin 4.4 (3.5-5.0) g/dL Globulin 3.2 (1.7-4.1) g/dL Albumin/Globulin Ratio 1.4 (1.0-2.8) Serum , Qual (Negative) 09/30/20 Range/Units 14:49 WBC (4.5-11.0) X10^3/uL RBC (4.0-5.2) X10^6/uL Hgb (12.0-16.0) g/dL Hct (36-46) % MCV (80-100) fL MCH (26-34) PG MCHC (30-36) % RDW (11.6-14.8) % Plt Count (150-400) X10^3/uL Neut % (Auto) (50-75) % Lymph % (Auto) (25-40) % [place] % (Auto) (3-14) % Eos % (Auto) (2-4) % Baso % (Auto) (0-2) % Neut # (Auto) (2356-1069) /uL Lymph # (Auto) (7730-4321) /uL [place] # (Auto) (0-900) /uL Eos # (Auto) (0-450) /uL Baso # (Auto) (0-100) /uL PT (10.1-12.7) SECONDS INR (0.9-1.3) Sodium (137-145) mmol/L Potassium (3.4-5.1) mmol/L Chloride (98-107) mmol/L Carbon Dioxide (22-32) mmol/L BUN (7-17) mg/dL Creatinine (0.52-1.04) mg/dL Estimated GFR (>60) mL/min BUN/Creatinine Ratio (6-22) Glucose (70-100) mg/dL Calcium (8.4-10.2) mg/dL Total Bilirubin (0.2-1.3) mg/dL AST (14-36) IU/L ALT (<35) IU/L Alkaline Phosphatase (38-126) U/L Total Protein (6.3-8.2) g/dL Albumin (3.5-5.0) g/dL Globulin (1.7-4.1) g/dL Albumin/Globulin Ratio (1.0-2.8) Serum , Qual Negative (Negative) Discharge Plan Departure Patient Disposition: Home Clinical Impression: Acute neck pain, Chronic neck pain Instructions: DI for Neck Pain, DI for Chronic Neck Pain Activity Restrictions/Additional Instructions: Thank you for trusting us with your care today today. As I discussed, your CT shows no evidence of neck vascular injury, which is very reassuring given the manipulation that you had of your neck. Please follow-up with primary care provider in the next few days as well as your pain specialist. I sent four prescriptions to [facility] in [place]. This includes lidocaine patches for pain, ondansetron for nausea, ketorolac or Toradol for pain and a limited number of [place] for pain. I called [facility] in [place] and confirm they have received your prescriptions. As discussed, please come back to the emergency department for acute concerns including incontinence of bowel, incontinence bladder or numbness in your groin I have given you a prescription of ketorolac or Toradol. This is an NSAID. Do not combine it with other NSAIDs such as Aleve or ibuprofen. I suggest taking it with some food, as it can irritate your stomach. You have been prescribed narcotic medications. While on these medications you cannot drive or operate heavy machinery. Additionally you cannot sign legal documents or perform any duties such as this. 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 Please understand that we cannot provide further refills of narcotics or controlled substances through the ED and your pain management will need to be through your Primary Care Provider Prescriptions: New hydrocodone-acetaminophen [[place]] 5-325 mg tablet 1 tab PO Q4-6H PRN (Reason: pain) Qty: 7 RF: 0 lidocaine 5 % adhesive patch,medicated 1 patch topical DAILY PRN (Reason: pain) Qty: 15 RF: 0 ketorolac 10 mg tablet 10 mg PO TID PRN (Reason: pain) Qty: 14 RF: 0 ondansetron 4 mg tablet,disintegrating 4 mg PO Q6H PRN (Reason: nausea and vomiting) Qty: 14 RF: 0 No Action medroxyprogesterone 150 MG/1 ML suspension 150 mg IM [id number] Qty: 0 RF: 0 tramadol 50 mg tablet 50 mg PO BID PRN (Reason: pain) Qty: 30 RF: 1 cyclobenzaprine 10 mg tablet 10 mg PO BID PRN (Reason: severe spasms) RF: 0 cetirizine 10 mg tablet 10 mg PO DAILY PRN (Reason: Allergy Symptoms) RF: 0 multivitamin Tablet 1 tab PO DAILY RF: 0 topiramate 25 mg tablet 50 mg PO QPM RF: 0 mometasone 50 mcg/actuation spray,non-aerosol 2 spray NASAL DAILY RF: 0 pregabalin 150 mg capsule 300 mg PO BID RF: 0 Referrals: Jaime De Oliveira ARNP [Primary Care Provider] - <Melissa Matias MD - Last Filed: 10/01/20 07:34> [facility]: I was immediately available in the department for consultation throughout this patient's visit. I agree with documentation as above. Melissa Matias MD
== END 2020-09-30 19:20 | disposition home or self-care (01) ==
PROVIDERS: Emergency Provider Nurse Practitioner Family; PCP Registered Nurse Diabetes Educator
DX: M54.2 Cervicalgia (principal)
CPT/HCPCS: 36415; 70496; 70498; 80053; 84703; 85025; 85610; 96374; 96375; 99283; 99284; J1885; J2405; Q9967

== ENCOUNTER 2020-10-02 11:22 | Emergency (ER) | payer OTHER, MEDICAID, SELFPAY ==
[2020-01-24 15:37] VITALS: BMI 31.6
[2020-10-02 11:29] VITALS: BP 179/97; PULSE 87; RESP 17; TEMP 37; O2SAT 100; BMI 36.6
[2020-10-02] MEDS: KETOROLAC 60 MG/2 ML VIAL 30 MG IM (12:29)
--- NOTE | 2020-10-02 12:39 | DI.MRI.S_ITS ---
PROCEDURE: MR THORACIC SPINE WO CON INDICATIONS: Numbness, tingling in arms, hx T1-2 disc protrusion TECHNIQUE: Noncontrast sagittal T1 spine echo and T2 fast spin echo, sagittal STIR, axial T1 and T2 fast spin echo through the thoracic spine. COMPARISON: None. FINDINGS: Image quality: Excellent. Alignment and Curvature: There is normal bony alignment. Bone Marrow: Marrow is of normal overall signal except for a vertebral body hemangioma at the T8 level posteriorly measuring only approximately 1 cm in maximal dimension.. No acute vertebral body compression fractures. Spinal Cord: Visualized spinal cord is normal in size and signal. There is degenerative disc disease that is mild to moderate at T2-T3 with a secondary mild posterior transverse disc bulge and this mildly effaces CSF from the anterior thecal sac and very slightly distorts the anterior border of the cervical cord. Minimal spinal stenosis is present at this level. No intrinsic cord lesion is found. Paraspinous Soft Tissues: No paravertebral masses. Miscellaneous: On axial images, central canal and foramina appear widely patent at all scanned levels. IMPRESSION: No intrinsic cord lesion is found. There is no disc herniation identified. There is [id number] degenerative disc disease at T2-T3 and minimal such degeneration at T8-T9 but with only a mild degree of spinal stenosis at the anterior border of the upper thoracic cord as a result. No disc herniation impinging on the cord itself is found or suspected. Incidental note is made of a 1 cm vertebral body marrow space hemangioma at the posterior inferior T8 vertebral body itself. Dictated by: Theron Greenwood M.D. on 10/02/2020 at 14:33 Approved by: Theron Greenwood M.D. on 10/02/2020 at 14:38
--- NOTE | 2020-10-02 13:11 | ED_ITS ---
HPI - Neck Pain/Injury <Guera PringleCONY - Last Filed: 10/02/20 20:05> General Chief Complaint: Neck Pain/Injury Stated Complaint: neck pain/numbness arms x7 days Time Seen by Provider: 10/02/20 12:00 Mode of arrival: Wheelchair Limitations: no limitations History of Present Illness HPI Narrative: 40yo female with a history of chronic neck pain, presents to the emergency department for instruction of her PCP. She was seen and evaluated on 09/30/20 for worsening neck pain, CT angio head and neck negative for any concerning findings. She had a cervical MRI on 06/2019 that showed partial visualized T1-T2 central disc protrusion. Patient states she was at physical therapy approximately week ago and had a ?neck adjustment ?. She states after the adjustment she had immediate worsening pain. She states the pain is severe, she describes as a 10/10. It radiates from her neck up to the front of her head, she has intermittent headaches throughout the day. She also has bilateral tingling in her arms. She states it is difficult to hold onto things because it is painful. She denies any loss of bowel or bladder control, chest pain, shortness of breath, inability to move her arms, vision changes, nausea, vomiting, diarrhea, or any other concerns. Related Data Home Medications Medication Instructions Recorded Confirmed medroxyprogesterone 150 mg IM [id number] #0 03/07/11 01/29/20 mometasone 50 mcg/actuation nasal 2 spray NASAL DAILY 05/10/19 01/29/20 spray topiramate 25 mg tablet 50 mg PO QPM tab 05/10/19 01/29/20 cetirizine 10 mg PO DAILY PRN 05/18/19 01/29/20 cyclobenzaprine 10 mg PO BID PRN 05/18/19 01/29/20 multivitamin 1 tab PO DAILY 05/18/19 01/29/20 pregabalin 150 mg capsule 300 mg PO BID cap 01/29/20 01/29/20 Previous Rx's Medication Instructions Recorded hydrocodone-acetaminophen [[employer]] 1 tab PO Q4-6H PRN #7 tab 09/30/20 ketorolac 10 mg PO TID PRN #14 tab 09/30/20 lidocaine 1 patch TOPICAL DAILY PRN #15 ea 09/30/20 ondansetron 4 mg PO Q6H PRN #14 tab 09/30/20 tramadol 50 mg tablet 50 mg PO BID PRN #30 tab 09/30/20 oxycodone 5 mg PO Q6H PRN #7 cap 10/02/20 prednisone 40 mg PO DAILY 5 Days #10 tab 10/02/20 Allergies Allergy/AdvReac Type Severity Reaction Status Date / Time red dye Allergy Verified 10/02/20 11:49 Review of Systems <CONY Sanchez - Last Filed: 10/02/20 20:05> Review of Systems Narrative: REVIEW OF SYSTEMS: GENERAL: Denies fever. HENT: No head trauma. CARDIOVASCULAR: No chest pain. RESPIRATORY: No shortness of breath or cough. GASTROINTESTINAL: No nausea or vomitnig. GENITOURINARY: No loss of bladder control MUSCULOSKELETAL: Complains of neck pain, see HPI. INTEGUMENTARY: No rash. Patient History <CNOY Sanchez - Last Filed: 10/02/20 20:05> Medical History (Updated 10/02/20 @ 15:17 by CONY Sanchez) Cervicogenic headache Herniated nucleus pulposus with myelopathy, thoracic No significant medical problems Paresthesia of upper extremity Surgical History History of appendectomy Family History Unknown No pertinent family history Social History household members: family Smoking Status: Former smoker Smoking Status: Former smoker alcohol intake frequency: a few times a week Substance Use Type: marijuana Exam <CONY Sanchez - Last Filed: 10/02/20 20:05> Initial Vital Signs Initial Vital Signs: Vital Signs Temperature 98.6 F 10/02/20 11:29 Pulse Rate 87 10/02/20 11:29 Respiratory Rate 17 10/02/20 11:29 Blood Pressure 179/97 H 10/02/20 11:29 Pulse Oximetry 100 10/02/20 11:29 PHYSICAL EXAMINATION: GENERAL: Awake and alert, cooperative. No distress. HENT: Normocephalic, atraumatic. Slightly decreased range of motion of head due to pain EYES: Symmetrical, sclera white, no periorbital swelling. CARDIOVASCULAR: S1 and S2 sounds normal. Regular rate and rhythm, no murmurs, clicks, or bruits. No pedal edema. RESPIRATORY: Normal respiratory rate, trachea midline, airway patent. No stridor, nasal flaring or accessory muscle use. Lungs are clear in all platt. MUSCULOSKELETAL: Tenderness to paraspinal vertebral muscles and lower cervical and upper thoracic region. Equal [employer] operations intelligence chief, forearm, and deltoid strength bilaterally. Strength to upper extremities is 4+. EXTREMITIES: CMS intact. SKIN: Warm, dry, soft, appropriate color for ethnicity. No lesions, rashes, or wounds. NEURO: Alert and Oriented X 3. No sensory deficits to face or upper extremities Cranial Nerves intact: II: Visual platt grossly intact. III & IV & : EOMIs V: Able to open and close jaw. VII: Facial movements symetrical. Able to close eyelids tightly. VIII: Hearing grossly intact, adequate balance. X: Uvula pronation intact. XI: Patient is able to shrug shoulders. XII: Patient is able to stick out tongue and move it side to side. PSYCH: Appropriate affect and mood. <Elena Cabrera DO - Last Filed: 10/03/20 07:31> Initial Vital Signs Initial Vital Signs: Vital Signs Temperature 98.6 F 10/02/20 11:29 Pulse Rate 87 10/02/20 11:29 Respiratory Rate 17 10/02/20 11:29 Blood Pressure 179/97 H 10/02/20 11:29 Pulse Oximetry 100 10/02/20 11:29 Course <CONY Sanchez - Last Filed: 10/02/20 20:05> Orders Ordered: Discontinued Medications Ketorolac Tromethamine (Ketorolac 60 Mg/2 Ml Vial) 30 mg IM NOW ONE Stop: 10/02/20 12:22 Last Admin: 10/02/20 12:29 Dose: 30 mg Documented by: SALINAS Vital Signs Vital signs: Vital Signs - 8 hr 10/02/20 15:25 Pulse Rate 85 Respiratory Rate 18 Blood Pressure 154/86 H Pulse Oximetry 99 <Elena Cabrera DO - Last Filed: 10/03/20 07:31> Orders Ordered: Discontinued Medications Ketorolac Tromethamine (Ketorolac 60 Mg/2 Ml Vial) 30 mg IM NOW ONE Stop: 10/02/20 12:22 Last Admin: 10/02/20 12:29 Dose: 30 mg Documented by: SALINAS Vital Signs Vital signs: Vital Signs - 8 hr 10/02/20 15:25 Pulse Rate 85 Respiratory Rate 18 Blood Pressure 154/86 H Pulse Oximetry 99 MDM - Neck Pain/Injury <CONY Sanchez - Last Filed: 10/02/20 20:05> Medical Records Attestation: I reviewed the patient's medical records. Lab Data Attestation: I reviewed the patient's lab results. Imaging Data Thorasic MRI: Radiologist's Impression: [address] [id number] Resonance ReportSigned Patient: Irina Florian LMR#: [id number]: 1980Acct:[id number]/Sex: 40 / FDate of Service: 10/02/20Loc: EDAccession Number: [id number] Procedure: MR thoracic spine wo con Ordering Provider: Guera Pringle PROCEDURE: MR THORACIC SPINE WO CON INDICATIONS: Numbness, tingling in arms, hx T1-2 disc protrusion TECHNIQUE: Noncontrast sagittal T1 spine echo and T2 fast spin echo, sagittal STIR, axial T1 and T2 fast spin echo through the thoracic spine. COMPARISON: None. FINDINGS: Image quality: Excellent. Alignment and Curvature: There is normal bony alignment. Bone Marrow: Marrow is of normal overall signal except for a vertebral body hemangioma at the T8 level posteriorly measuring only approximately 1 cm in maximal dimension.. No acute vertebral body compression fractures. Spinal Cord: Visualized spinal cord is normal in size and signal. There is degenerative disc disease that is mild to moderate at T2-T3 with a secondary mild posterior transverse disc bulge and this mildly effaces CSF from the anterior thecal sac and very slightly distorts the anterior border of the cervical cord. Minimal spinal stenosis is present at this level. No intrinsic cord lesion is found. Paraspinous Soft Tissues: No paravertebral masses. Miscellaneous: On axial images, central canal and foramina appear widely patent at all scanned levels. IMPRESSION: No intrinsic cord lesion is found. There is no disc herniation identified. There is [id number] degenerative disc disease at T2-T3 and minimal such degeneration at T8-T9 but with only a mild degree of spinal stenosis at the anterior border of the upper thoracic cord as a result. No disc herniation impinging on the cord itself is found or suspected. Incidental note is made of a 1 cm vertebral body marrow space hemangioma at the posterior inferior T8 vertebral body itself. Dictated by: Theron Greenwood M.D. on 10/02/2020 at 14:33 Approved by: Theron Greenwood M.D. on 10/02/2020 at 14:38 MDM Narrative Medical decision making narrative: 40yo female presenting to the emergency department for continued neck pain with bilateral arm tingling. Patient's previous cervical MRI shows disc bulging at T1-T2 which is most likely the cause of the symptoms. Thoracic MRI was completed today and shows minimal disc degeneration and spinal stenosis, as well as an incidental hemangioma. This may also be the cause for symptoms and pain. Less concern for spinal compression given MRI findings, equal and strong strength to upper extremities bilaterally, and lack of other day concerning symptoms such as unilateral neurological abnormalities, cranial nerve deficits, loss of bowel or bladder control, or other concerning findings. Patient had a CT angio head and neck a few days ago post cervical manipulation, less concern for arterial tears, herniations, or aneurysms. No indication of infection, patient is hemodynamically stable, afebrile and non tachycardic. We discussed pain management, she was placed on prednisone, encouraged to discontinue hydrocodone and placed on oxycodone as she states this does not make her as sick. She was encouraged to follow up with pain management for further control of pain. Return precautions given for new or worsening symptoms. She agrees to plan of care verbalized understanding. Discharge Plan Departure Patient Disposition: Home Clinical Impression: Cervicalgia Hemangioma Qualifiers: Hemangioma site: unspecified site Qualified Code(s): D18.00 - Hemangioma unspecified site Instructions: DI for Neck Pain Activity Restrictions/Additional Instructions: Thank you for entrusting me with your care today. As discussed, Today's MRI shows degenerative disc disease at T2-T3 and mild spinal stenosis at T8-T9. Additionally there is a 1cm hemangioma noted at T8. Your previous cervical MRI showed T1-T2 central disc protrusion appearing to compress the anterior margin of the upper thoracic spine. I suspect these are most likely the cause of your symptoms. I prescribed you prednisone to help with inflammation and oxycodone. You have been prescribed a narcotic medication, this medication can make you drowsy. Do not drive while using this medication or perform activities that require mental alertness. These medications can also make you constipated, please use qfrm-[id number] docusate sodium as needed for constipation. Your prescription was sent to [facility] in [place]. Please follow-up with your pain management doctor and primary care in the next few weeks for further evaluation. Return emergency department for any new or worsening symptoms. Prescriptions: New prednisone 20 mg tablet 40 mg PO DAILY 5 Days Qty: 10 RF: 0 oxycodone 5 mg capsule 5 mg PO Q6H PRN (Reason: pain) Qty: 7 RF: 0 No Action medroxyprogesterone 150 MG/1 ML suspension 150 mg IM [id number] Qty: 0 RF: 0 tramadol 50 mg tablet 50 mg PO BID PRN (Reason: pain) Qty: 30 RF: 1 cyclobenzaprine 10 mg tablet 10 mg PO BID PRN (Reason: severe spasms) RF: 0 cetirizine 10 mg tablet 10 mg PO DAILY PRN (Reason: Allergy Symptoms) RF: 0 multivitamin Tablet 1 tab PO DAILY RF: 0 hydrocodone-acetaminophen [[employer]] 5-325 mg tablet 1 tab PO Q4-6H PRN (Reason: pain) Qty: 7 RF: 0 lidocaine 5 % adhesive patch,medicated 1 patch topical DAILY PRN (Reason: pain) Qty: 15 RF: 0 ketorolac 10 mg tablet 10 mg PO TID PRN (Reason: pain) Qty: 14 RF: 0 ondansetron 4 mg tablet,disintegrating 4 mg PO Q6H PRN (Reason: nausea and vomiting) Qty: 14 RF: 0 topiramate 25 mg tablet 50 mg PO QPM RF: 0 mometasone 50 mcg/actuation spray,non-aerosol 2 spray NASAL DAILY RF: 0 pregabalin 150 mg capsule 300 mg PO BID RF: 0 Referrals: Jaime De Oliveira ARNP [Primary Care Provider] - <Elena Cabrera DO - Last Filed: 10/03/20 07:31> [facility] ED Attending Krystalature Attestation: I was immediately available in the department for consultation. This documentation has been reviewed and I agree with assessment and plan. Case was discussed, reviewed examination, patient imaging reviewed and plan for MRI today which was compared to prior results. Patient does not have red flag symptoms and discussed to refer back to ortho and pcp or pain management. Supervised by Elena Cabrera,
[2020-10-02 15:25] VITALS: BP 154/86; PULSE 85; RESP 18; O2SAT 99
== END 2020-10-02 15:26 | disposition home or self-care (01) ==
PROVIDERS: Emergency Provider Nurse Practitioner; PCP Registered Nurse Diabetes Educator
DX: M54.2 Cervicalgia (principal); D18.00 Hemangioma unspecified site; R20.0 Anesthesia of skin; R51.9 Headache, unspecified
CPT/HCPCS: 72146; 96372; 99283; J1885

== ENCOUNTER → 2020-10-09 16:05 | Outpatient (CLI) | payer OTHER, MEDICAID, SELFPAY ==
[2020-01-24 15:37] VITALS: BMI 31.6
--- NOTE | 2020-10-09 16:07 | DI.RAD.S_ITS ---
PROCEDURE: XR CERVICAL SPINE 2V OR 3V INDICATIONS: update imaging TECHNIQUE: 3 view(s) of the cervical spine were acquired. COMPARISON: [facility], CR, XR CERVICAL SPINE 2V OR 3V, 05/10/2019, 16:56. FINDINGS: Bones: No fracture. Straightening of the normal lordotic curvature. Multilevel degenerative endplate sclerosis and spurring. Diffuse facet arthropathy. Mild diffuse narrowing of the cervical disc spaces most pronounced at C5-C6 and C6-C7. Soft tissues: No prevertebral soft tissue swelling. IMPRESSION: Mild cervical spondylosis and facet arthropathy, grossly unchanged Straightening of the normal lordotic curvature. Dictated by: Doug Camejo M.D. on 10/09/2020 at 16:29 Approved by: Doug Camejo M.D. on 10/09/2020 at 16:35
== END ==
PROVIDERS: PCP Family Medicine; Referring Provider Family Medicine; Visit Provider Family Medicine
DX: M47.892 Other spondylosis, cervical region (principal); M99.81 Other biomechanical lesions of cervical region
CPT/HCPCS: 72040

== ENCOUNTER → 2020-10-16 14:40 | Outpatient (CLI) | payer OTHER, MEDICAID, SELFPAY ==
[2020-01-24 15:37] VITALS: BMI 31.6
--- NOTE | 2020-10-16 14:40 | DI.MRI.S_ITS ---
PROCEDURE: MR CERVICAL SPINE WO CON INDICATIONS: Severe neck pain with bilateral arm weakness TECHNIQUE: Noncontrast sagittal T1 spin echo and T2 fast spin echo, sagittal STIR, foraminal oblique sagittal T2 fast spin echo, and axial gradient echo or T2 fast spin echo through the cervical spine. COMPARISON: [facility], MR, MR CERVICAL SPINE WO CON, 06/27/2019, 18:53. FINDINGS: Image quality: Excellent. Alignment and Curvature: Loss of normal cervical lordosis. Mild grade 1 retrolisthesis of C3 on C4 and C6 on C7. Bone Marrow: Marrow demonstrates normal overall signal. Mild reactive signal within the endplates adjacent to the C3-C4 intervertebral disc. Moderate reactive signal within the endplates adjacent to the C5-C6 and C6-C7 intervertebral discs. Spinal Cord: Visualized spinal cord has normal size and signal. No cerebellar tonsillar herniation. Paraspinous Soft Tissues: No paravertebral masses. Prevertebral soft tissues are normal in thickness. C2-C3: Mild disc desiccation. No significant canal, nor foraminal stenosis. No change. C3-C4: Moderate disc desiccation. Mild disc height loss and diffuse disc bulge. Small central protrusion. Congenital canal stenosis. Mild facet and uncovertebral hypertrophy. Moderate canal stenosis. Mild bilateral foraminal stenosis. C4-C5: Congenital canal stenosis. Mild disc desiccation and diffuse disc bulge. Mild facet and uncovertebral hypertrophy. Mild canal stenosis. Mild bilateral foraminal stenosis. C5-C6: Moderate disc height loss and desiccation. Mild diffuse disc bulge. Congenital canal stenosis. Mild facet and uncovertebral hypertrophy. Severe canal stenosis with mild cord flattening. Moderate right and mild left foraminal stenosis. C6-C7: Congenital canal stenosis. Moderate disc desiccation. Mild disc height loss and diffuse disc bulge. Mild facet and uncovertebral hypertrophy bilaterally. Mild canal stenosis. Mild bilateral foraminal stenosis. C7-T1: Mild disc desiccation and diffuse disc bulge. Mild bilateral facet and uncovertebral hypertrophy. Mild canal stenosis. Mild bilateral foraminal stenosis. IMPRESSION: 1. Diffuse congenital canal stenosis with superimposed disc and facet disease, as well as uncovertebral hypertrophy. 2. Multilevel canal stenosis, worst at C5-C6 where there is mild cord flattening. 3. Multilevel foraminal stenoses, worst at C5-C6 where there is moderate foraminal stenosis. Dictated by: Jannette Singh M.D. on 10/16/2020 at 15:39 Approved by: Jannette Singh M.D. on 10/16/2020 at 15:42
== END ==
PROVIDERS: PCP Family Medicine; Referring Provider Family Medicine; Visit Provider Family Medicine
DX: M54.2 Cervicalgia (principal); R20.2 Paresthesia of skin; G83.24 Monoplegia of upper limb affecting left nondominant side; G83.23 Monoplegia of upper limb affecting right nondominant side; M48.02 Spinal stenosis, cervical region
CPT/HCPCS: 72141

== ENCOUNTER 2021-03-21 13:25 | Emergency (ER) | payer OTHER, MEDICAID, SELFPAY ==
[2020-01-24 15:37] VITALS: BMI 31.6
[2021-03-21 13:40] VITALS: BP 140/90; PULSE 100; RESP 19; TEMP 36.9; O2SAT 100
--- NOTE | 2021-03-21 14:09 | ED.NECK ---
HPI - Neck Pain/Injury General Chief Complaint: Neck Pain/Injury Stated Complaint: neck pain Time Seen by Provider: 03/21/21 14:05 Source: patient Mode of arrival: Ambulatory Limitations: no limitations History of Present Illness HPI Narrative: Patient is a 41-year-old female who has had longstanding history of neck discomfort. She states that is been going on for the past 6 years. She states the end of last year she had a physical therapist which cause stay increase in the discomfort. She has had an MRI in the past which showed disc disease. She states she has seen Orthopedic surgery and she states that all they want to do is give her steroid injections. She has seen her primary doctor who took her off the cyclobenzaprine which she states has helped her in the past and put her on another medicine that has not helped. States she called her primary doctor back who wanted her to come into the office but she felt that the primary doctor was not going to help her so she came to the emergency department for further evaluation Related Data Home Medications Medication Instructions Recorded Confirmed medroxyprogesterone 150 mg IM [id number] #0 03/07/11/04/20 topiramate 25 mg tablet 50 mg PO QPM tab 05/10/19 11/04/20 multivitamin 1 tab PO DAILY 05/18/19 11/04/20 amlodipine 2.5 mg tablet 2.5 mg PO DAILY 11/06/20 dicyclomine 10 mg capsule 10 mg PO DAILY PRN cap 11/06/20 Previous Rx's Medication Instructions Recorded pregabalin 150 mg capsule 150 mg PO DAILY #30 cap 10/09/20 oxycodone-acetaminophen 5 mg-325 1 tab PO TID PRN #12 tab 10/21/20 mg tablet nortriptyline 10 mg capsule 10 mg PO BEDTIME #90 cap 10/22/20 cetirizine 10 mg tablet 10 mg PO DAILY PRN #90 tab 11/04/20 cyclobenzaprine 10 mg tablet 10 mg PO BID PRN #60 tab 11/04/20 ketorolac 10 mg tablet 10 mg PO TID PRN #14 tab 11/04/20 lidocaine 5 % topical patch 1 patch TOPICAL DAILY PRN #15 ea 11/04/20 mometasone 50 mcg/actuation nasal 2 spray NASAL DAILY #17 g 11/04/20 spray ondansetron 4 mg disintegrating 4 mg PO Q6H PRN #60 tab 11/04/20 tablet cyclobenzaprine 10 mg PO TID PRN #20 tab 03/21/21 Allergies Allergy/AdvReac Type Severity Reaction Status Date / Time red dye Allergy Verified 11/04/20 15:05 Review of Systems Constitutional Constitutional: Reports system reviewed and no additional complaints, except as documented Musculoskeletal Comments: Neck pain Neurologic Neurologic: Reports system reviewed and no additional complaints, except as documented Patient History Medical History (Updated 03/21/21 @ 14:14 by Ollie Mendoza DO) Cervicogenic headache Herniated nucleus pulposus with myelopathy, thoracic No significant medical problems Paresthesia of upper extremity Surgical History History of appendectomy Family History Unknown No pertinent family history Social History household members: family Smoking Status: Former smoker Smoking Status: Former smoker alcohol intake frequency: a few times a week Substance Use Type: marijuana Exam Initial Vital Signs Initial Vital Signs: Vital Signs Temperature 98.4 F 03/21/21 13:40 Pulse Rate 100 H 03/21/21 13:40 Respiratory Rate 19 03/21/21 13:40 Blood Pressure 140/90 03/21/21 13:40 Pulse Oximetry 100 03/21/21 13:40 Const General: cooperative HENMT Head: normal to inspection and normocephalic Resp Effort & Inspection: normal respiratory effort Cardio Rate: regular rate Neuro General: patient alert and patient awake Cognition: normal cognition Speech: speech normal Psych Appearance: grossly normal and well kempt Course Vital Signs Vital signs: Vital Signs - 8 hr 03/21/21 13:40 Temperature 98.4 F Pulse Rate 100 H Respiratory Rate 19 Blood Pressure 140/90 Pulse Oximetry 100 MDM - Neck Pain/Injury MDM Narrative Medical decision making narrative: Patient has longstanding chronic neck issues. There is no indication to perform any further radiologic studies here at the emergency department. I did offer to switch her back to her cyclobenzaprine as she stated that this has helped her in the past. I informed her that unfortunately we were not able to provide any pain medication. This is a chronic pain issue and he needs to come from either her primary doctor, her orthopedic surgeon or paint crew supervisor. Informed her that there is no indication to perform an MRI here out of the emergency department. I feel that there is no further workup that needs workup out of the emergency department. Patient was upset with this discussion. Discharge Plan Departure Patient Disposition: Home Clinical Impression: Chronic neck pain Instructions: Chronic Neck Pain Activity Restrictions/Additional Instructions: Unfortunately there is no further workup that can be done under the emergency department. You have been under the care of specialist and I recommend that you contact them if you feel like you would benefit from further intervention. Unfortunately the emergency department does not provide medication for chronic pain. This needs to come from 1 provider. This can either be your primary doctor, your specialist or paint crew supervisor. We will switch you back to the cyclobenzaprine/Flexeril as this seems to have helped to in the past. I do recommend that you talk with your primary doctor. Prescriptions: New cyclobenzaprine 10 mg tablet 10 mg PO TID PRN (Reason: muscle spasm) Qty: 20 RF: 0 No Action medroxyprogesterone 150 MG/1 ML suspension 150 mg IM [id number] Qty: 0 RF: 0 nortriptyline 10 mg capsule 10 mg PO BEDTIME Qty: 90 RF: 0 amlodipine 2.5 mg tablet 2.5 mg PO DAILY RF: 0 dicyclomine 10 mg capsule 10 mg PO DAILY PRNRF: 0 pregabalin 150 mg capsule 150 mg PO DAILY Qty: 30 RF: 0 oxycodone-acetaminophen [Percocet] 5-325 mg tablet 1 tab PO TID PRN (Reason: pain) Qty: 12 RF: 0 cetirizine 10 mg tablet 10 mg PO DAILY PRN (Reason: Allergy Symptoms) Qty: 90 RF: 3 cyclobenzaprine 10 mg tablet 10 mg PO BID PRN (Reason: severe spasms) Qty: 60 RF: 0 ketorolac 10 mg tablet 10 mg PO TID PRN (Reason: pain) Qty: 14 RF: 0 lidocaine 5 % adhesive patch,medicated 1 patch topical DAILY PRN (Reason: pain) Qty: 15 RF: 0 mometasone 50 mcg/actuation spray,non-aerosol 2 spray NASAL DAILY Qty: 17 RF: 3 ondansetron 4 mg tablet,disintegrating 4 mg PO Q6H PRN (Reason: nausea and vomiting) Qty: 60 RF: 0 multivitamin Tablet 1 tab PO DAILY RF: 0 topiramate 25 mg tablet 50 mg PO QPM RF: 0
--- NOTE | 2021-03-21 14:32 | PC.NURSE ---
Pt is making complaints that the DR did not do anything or examine her. The discharge paperwork includes a muscle relaxant that she asked for. Pt is refusing discharge vitals, and insisting on speaking with a supervisor porcelain department. She was given the name and number for the pt advocate Mariaelena Brown, charge nurse and Dr Mendoza are aware. Pt refused to get off the phone while we talked to her. Pt' s insurance company called the [facility] and asked what we did and they were informed that she was evaluated, and offered treatment and refused to leave. Dr Mendoza returned to the room, the pt refused to allow her to do a physical exam and she continued to refuse to get off the phone. Dr Mendoza told me to go ahead with the discharge.
== END 2021-03-21 14:46 | disposition home or self-care (01) ==
PROVIDERS: Emergency Provider Emergency Medicine
DX: M54.2 Cervicalgia (principal)
CPT/HCPCS: 99281

== ENCOUNTER 2021-09-09 15:15 | Outpatient (RCR) | payer OTHER, MEDICAID, SELFPAY ==
[2020-01-24 15:37] VITALS: BMI 31.6
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
== END 2021-11-18 08:43 ==
LOC: PHYS 15:15
PROVIDERS: Family Provider Registered Nurse; PCP Registered Nurse; Referring Provider Obstetrics & Gynecology; Visit Provider Obstetrics & Gynecology
DX: N94.2 Vaginismus (principal)
CPT/HCPCS: 97110; 97161; 97535

== ENCOUNTER → 2021-12-25 17:48 | Outpatient (CLI) | payer OTHER, MEDICAID, SELFPAY ==
[2020-01-24 15:37] VITALS: BMI 31.6
--- NOTE | 2021-12-25 | DI.MRI.S_ITS ---
PROCEDURE: MR CERVICAL SPINE WO CON INDICATIONS: Spinal stenosis, cervicothoracic region TECHNIQUE: Noncontrast sagittal T1 spin echo and T2 fast spin echo, sagittal STIR, foraminal oblique sagittal T2 fast spin echo, and axial gradient echo or T2 fast spin echo through the cervical spine. COMPARISON: [facility], MR, MR CERVICAL SPINE WO CON, 10/16/2020, 14:49. [facility], CR, XR CERVICAL SPINE 2V OR 3V, 10/09/2020, 17:07. FINDINGS: Image quality: Excellent. Alignment and Curvature: There is normal bony alignment. Bone Marrow: Modic type 2 reactive endplate changes noted adjacent to the C3-C4, C4-C5, C5-C6 and C6-C7 discs. Spinal Cord: Visualized spinal cord has normal size and signal. No cerebellar tonsillar herniation. Paraspinous Soft Tissues: No paravertebral masses. Prevertebral soft tissues are normal in thickness. C2-C3: Normal appearance. C3-C4: Loss of disc signal and slight loss of disc height. Moderate, diffuse disc bulge. Nuls-qj-fiwflkfj narrowing of the central canal. No neural foraminal narrowing. No neural compression. C4-C5: Normal appearance. C5-C6: Loss of disc signal and height. Moderate, diffuse disc bulge. Moderate narrowing of the central canal. Moderate bilateral uncovertebral joint hypertrophy. Moderate bilateral neural foraminal narrowing. No neural compression. C6-C7: Loss of disc signal and mild loss of disc height. Mild to moderate diffuse disc bulge. Mild bilateral uncovertebral joint hypertrophy. Mild to moderate narrowing of the central canal. Mild bilateral neural foraminal narrowing. No neural compression. C7-T1: Normal appearance. IMPRESSION: 1. Multilevel degenerative disc disease. 2. No severe central canal narrowing. 3. No severe neural foraminal narrowing. 4. No neural compression. Dictated by: Shonda Nicholas MD, PhD on 12/26/2021 at 13:30 Approved by: Shonda Nicholas MD, PhD on 12/26/2021 at 13:40
== END ==
PROVIDERS: Family Provider Registered Nurse; PCP Registered Nurse; Referring Provider Psychiatry & Neurology Neurology; Visit Provider Psychiatry & Neurology Neurology
DX: M48.03 Spinal stenosis, cervicothoracic region (principal); M50.31 Other cervical disc degeneration, high cervical region; Z51.81 Encounter for therapeutic drug level monitoring
CPT/HCPCS: 72141; 93005; 93010

== ENCOUNTER → 2023-03-03 15:05 | Outpatient (CLI) | payer OTHER, MEDICAID, SELFPAY ==
[2022-11-19 11:41] VITALS: BMI 31.6
--- NOTE | 2023-03-03 15:08 | DI.RAD.S_ITS ---
PROCEDURE: XR CERVICAL SPINE 4V OR 5V INDICATIONS: NECK PAIN TECHNIQUE: 5 views of the cervical spine acquired. COMPARISON: [facility], CR, XR CERVICAL SPINE 2V OR 3V, 10/09/2020, 17:07. [facility], CR, XR CERVICAL SPINE 2V OR 3V, 05/10/2019, 16:56. FINDINGS: Bones: No acute fractures or dislocations to the C7 level. Mild straightening of the normal cervical lordosis. Mild multilevel disc space narrowing degenerative endplate changes are seen that are most prominent at the C5-6 and C6-7 levels. There is multilevel uncovertebral joint and facet hypertrophy. Oblique images demonstrate no high-grade bony foraminal stenoses. Soft tissues: No prevertebral soft tissue swelling. IMPRESSION: Mild multilevel spondylosis. Approved by: Danny Galindo M.D. on 03/03/2023 at 16:19
== END ==
PROVIDERS: Family Provider Registered Nurse; Referring Provider Physical Medicine & Rehabilitation; Visit Provider Physical Medicine & Rehabilitation
DX: M50.122 Cervical disc disorder at C5-C6 level with radiculopathy; M47.22 Other spondylosis with radiculopathy, cervical region
CPT/HCPCS: 72050

== ENCOUNTER 2024-08-30 12:19 | Emergency (ER) | payer OTHER, MEDICAID, SELFPAY ==
[2022-11-19 11:41] VITALS: BMI 31.6
[2024-08-30] VITALS (19 sets, daily range): BP systolic 120–139; BP diastolic 64–92; PULSE 59–92; RESP 18; TEMP 36.5–36.6; O2SAT 98–100; BMI 23.9
--- NOTE | 2024-08-30 14:28 | ED_ITS ---
HPI - Female Genitourinary <Carlos Stone MD - Last Filed: 09/04/24 19:01> General Chief complaint: Urogenital-Female Stated complaint: Sent by Urgent Care; Poss Kidney Stones Time Seen by Provider: 08/30/24 14:20 Source: patient Mode of arrival: Ambulatory History of Present Illness HPI Narrative: Patient is sent here from local urgent care. Patient states a friend drove her here. Patient states the past 3 days has urinary urgency frequency and dysuria with suprapubic discomfort. Walk-in clinic urinalysis but poorly noted leukocytes and sediment. They were concerned for kidney stone. Patient in no distress at this time. Patient states has had UTI in the past. No kidney stones in the past. She denies . Related Data Home Medications Medication Instructions Recorded Confirmed medroxyprogesterone 150 mg/mL 150 mg IM [id number] ##0 03/07/11 11/04/20 intramuscular suspension topiramate 25 mg tablet 50 mg PO QPM 05/10/19 11/04/20 multivitamin 1 tab PO DAILY 05/18/19 11/04/20 amlodipine 2.5 mg tablet 2.5 mg PO DAILY 11/06/20 dicyclomine 10 mg capsule 10 mg PO DAILY PRN 11/06/20 atomoxetine 40 mg capsule 40 mg PO DAILY 03/05/23 clonidine HCl 0.2 mg tablet 0.2 mg PO BEDTIME 03/05/23 divalproex 250 mg tablet,delayed 250 mg PO DAILY 03/05/23 release divalproex 500 mg tablet,delayed 500 mg PO DAILY 03/05/23 release famotidine 20 mg tablet 20 mg PO BEDTIME 03/05/23 lurasidone 40 mg tablet 40 mg PO DAILY 03/05/23 nortriptyline 75 mg capsule 75 mg PO BEDTIME 03/05/23 tenapanor 50 mg tablet (Ibsrela) 50 mg PO .PRN 03/05/23 zolpidem 5 mg tablet 5 mg PO BEDTIME PRN insomnia 03/05/23 Previous Rx's Medication Instructions Recorded oxycodone-acetaminophen 5 mg-325 1 tab PO TID PRN pain #12 tabs 10/21/20 mg tablet (Percocet) ketorolac 10 mg tablet 10 mg PO TID PRN pain #14 tabs 11/04/20 lidocaine 5 % topical patch 1 patch topical DAILY PRN pain #15 11/04/20 ea mometasone 50 mcg/actuation nasal 2 spray intranasal DAILY #17 grams 11/04/20 spray ondansetron 4 mg disintegrating 4 mg PO Q6H PRN nausea and 11/04/20 tablet vomiting #60 tabs cyclobenzaprine 10 mg tablet 10 mg PO TID PRN muscle spasm #20 03/21/21 tabs cetirizine 10 mg tablet 10 mg PO DAILY PRN Allergy 06/09/21 Symptoms #90 tabs levofloxacin 750 mg tablet 750 mg PO DAILY #10 tabs 08/30/24 ondansetron 4 mg disintegrating 4 mg PO Q8H PRN nausea and 08/30/24 tablet vomiting #30 tabs oxycodone-acetaminophen 5 mg-325 1 tab PO TID PRN pain #14 tabs 08/30/24 mg tablet tamsulosin 0.4 mg capsule (Flomax) 0.4 mg PO DAILY #30 caps 08/30/24 Allergies Allergy/AdvReac Type Severity Reaction Status Date / Time red dye Allergy Verified 03/05/23 16:01 Review of Systems <Carlos Stone MD - Last Filed: 09/04/24 19:01> Review of Systems Narrative: GENERAL: Negative chills, fatigue, malaise, fever, sweats. HEENT: Negative sinus pain, ear pain, sore throat RESPIRATORY: Negative dyspnea, cough CARDIOVASCULAR: Negative chest pain, palpitations GASTROINTESTINAL: Negative nausea, vomiting, abdominal pain : Positive dysuria, frequency, negative hematuria MUSCULOSKELETAL: Negative muscle or bony pain SKIN: Negative rash, skin lesions NEUROLOGIC: Negative weakness, numbness ROS Unobtainable: All systems reviewed & are unremarkable except as noted in HPI and below Patient History <Carlos Stone MD - Last Filed: 09/04/24 19:01> Medical History (Updated 08/30/24 @ 20:10 by Elena Heromsillo MD) Paresthesia of upper extremity Cervicogenic headache Herniated nucleus pulposus with myelopathy, thoracic No significant medical problems Surgical History History of appendectomy Family History Unknown No pertinent family history alcohol intake frequency: a few times a week Substance Use Type: marijuana Exam <Carlos Stone MD - Last Filed: 09/04/24 19:01> Narrative Exam Narrative: GENERAL: in no distress, not toxic not dyspneic HEAD: Normocephalic. EYES: Pupils equal round ENT: Mucous membranes moist. NECK: Trachea midline. CARDIOVASCULAR: Regular rate and rhythm RESPIRATORY: Clear to auscultation. Breath sounds equal bilaterally. No wheezes, rales, or rhonchi. GASTROINTESTINAL: Abdomen soft, mild left CVA tenderness mild suprapubic tenderness. No peritoneal signs. EXTREMITIES: No gross deformities. BACK: Mild left CVA tenderness NEURO: AOx4. SKIN: Warm and dry PSYCH: Not anxious, is cooperative Initial Vital Signs Initial Vital Signs: Vital Signs Temperature 97.7 F 08/30/24 12:24 Pulse Rate 60 08/30/24 12:24 Respiratory Rate 18 08/30/24 12:24 Blood Pressure 120/64 08/30/24 12:24 Pulse Oximetry 100 08/30/24 12:24 Oxygen Delivery Method Room Air 08/30/24 12:24 <Elena Hermosillo MD - Last Filed: 08/31/24 05:46> Initial Vital Signs Initial Vital Signs: Vital Signs Temperature 97.7 F 08/30/24 12:24 Pulse Rate 60 08/30/24 12:24 Respiratory Rate 18 08/30/24 12:24 Blood Pressure 120/64 08/30/24 12:24 Pulse Oximetry 100 08/30/24 12:24 Oxygen Delivery Method Room Air 08/30/24 12:24 Course <Carlos Stone MD - Last Filed: 09/04/24 19:01> Orders Ordered: Discontinued Medications Levofloxacin (Levaquin) 750 mg in 150 mls @ 100 mls/hr IV NOW ONE Stop: 08/30/24 17:33 Last Infusion: 08/30/24 18:12 Dose: Infused Documented By: Admin: 08/30/24 16:37 Dose: 100 mls/hr Documented By: GENNY Ketorolac Tromethamine (Ketorolac 30 Mg/Ml Vial) 15 mg IV NOW ONE Stop: 08/30/24 14:28 Last Admin: 08/30/24 14:51 Dose: 15 mg Documented By: GENNY Levofloxacin (Levofloxacin 250 Mg Tablet) 750 mg PO NOW ONE Stop: 08/30/24 20:07 Last Admin: 08/30/24 20:14 Dose: 750 mg Documented By: SHRUTHI Ondansetron HCl (Ondansetron 4 Mg/2 Ml Inj) 4 mg IV NOW ONE Stop: 08/30/24 14:44 Last Admin: 08/30/24 14:51 Dose: 4 mg Documented By: GENNY Oxycodone/Acetaminophen (Oxycodone/Apap 5/325 Prepack) 1 bottle MISC DIRECTED ONE Stop: 08/30/24 20:07 Last Admin: 08/30/24 20:14 Dose: 1 bottle Documented By: SHRUTHI Tamsulosin HCl (Tamsulosin 0.4 Mg Capsule) 0.4 mg PO NOW ONE Stop: 08/30/24 20:07 Last Admin: 08/30/24 20:14 Dose: 0.4 mg Documented By: SHRUTHI Vital Signs Vital signs: Vital Signs - 8 hr 08/30/24 12:24 08/30/24 14:32 08/30/24 14:32 Temperature 97.7 F Pulse Rate 60 62 Respiratory Rate 18 Blood Pressure 120/64 130/79 Pulse Oximetry 100 100 Oxygen Delivery Method Room Air Room Air 08/30/24 15:00 08/30/24 15:30 08/30/24 16:00 Temperature Pulse Rate 67 59 L 63 Respiratory Rate Blood Pressure Pulse Oximetry 100 99 100 Oxygen Delivery Method Room Air 08/30/24 16:07 08/30/24 16:07 08/30/24 16:41 Temperature Pulse Rate 69 Respiratory Rate Blood Pressure 139/84 Pulse Oximetry 100 100 Oxygen Delivery Method 08/30/24 16:42 08/30/24 16:42 08/30/24 17:00 Temperature Pulse Rate 90 Respiratory Rate Blood Pressure 137/92 H 132/74 Pulse Oximetry 100 Oxygen Delivery Method 08/30/24 17:00 08/30/24 17:30 08/30/24 18:00 Temperature Pulse Rate 67 71 84 Respiratory Rate Blood Pressure Pulse Oximetry 100 100 100 Oxygen Delivery Method Room Air 08/30/24 18:06 08/30/24 18:06 08/30/24 18:30 Temperature Pulse Rate 78 Respiratory Rate Blood Pressure 132/81 126/82 Pulse Oximetry 99 Oxygen Delivery Method Room Air 08/30/24 18:30 08/30/24 19:00 08/30/24 19:00 Temperature Pulse Rate 83 82 Respiratory Rate Blood Pressure 131/81 Pulse Oximetry 100 98 Oxygen Delivery Method Room Air <Elena Hermosillo MD - Last Filed: 08/31/24 05:46> Orders Ordered: Discontinued Medications Levofloxacin (Levaquin) 750 mg in 150 mls @ 100 mls/hr IV NOW ONE Stop: 08/30/24 17:33 Last Infusion: 08/30/24 18:12 Dose: Infused Documented By: Admin: 08/30/24 16:37 Dose: 100 mls/hr Documented By: GENNY Ketorolac Tromethamine (Ketorolac 30 Mg/Ml Vial) 15 mg IV NOW ONE Stop: 08/30/24 14:28 Last Admin: 08/30/24 14:51 Dose: 15 mg Documented By: GENNY Levofloxacin (Levofloxacin 250 Mg Tablet) 750 mg PO NOW ONE Stop: 08/30/24 20:07 Last Admin: 08/30/24 20:14 Dose: 750 mg Documented By: SHRUTHI Ondansetron HCl (Ondansetron 4 Mg/2 Ml Inj) 4 mg IV NOW ONE Stop: 08/30/24 14:44 Last Admin: 08/30/24 14:51 Dose: 4 mg Documented By: GENNY Oxycodone/Acetaminophen (Oxycodone/Apap 5/325 Prepack) 1 bottle MISC DIRECTED ONE Stop: 08/30/24 20:07 Last Admin: 08/30/24 20:14 Dose: 1 bottle Documented By: SHRUTHI Tamsulosin HCl (Tamsulosin 0.4 Mg Capsule) 0.4 mg PO NOW ONE Stop: 08/30/24 20:07 Last Admin: 08/30/24 20:14 Dose: 0.4 mg Documented By: SHRUTHI Vital Signs Vital signs: Vital Signs - 8 hr 08/30/24 12:24 08/30/24 14:32 08/30/24 14:32 Temperature 97.7 F Pulse Rate 60 62 Respiratory Rate 18 Blood Pressure 120/64 130/79 Pulse Oximetry 100 100 Oxygen Delivery Method Room Air Room Air 08/30/24 15:00 08/30/24 15:30 08/30/24 16:00 Temperature Pulse Rate 67 59 L 63 Respiratory Rate Blood Pressure Pulse Oximetry 100 99 100 Oxygen Delivery Method Room Air 08/30/24 16:07 08/30/24 16:07 08/30/24 16:41 Temperature Pulse Rate 69 Respiratory Rate Blood Pressure 139/84 Pulse Oximetry 100 100 Oxygen Delivery Method 08/30/24 16:42 08/30/24 16:42 08/30/24 17:00 Temperature Pulse Rate 90 Respiratory Rate Blood Pressure 137/92 H 132/74 Pulse Oximetry 100 Oxygen Delivery Method 08/30/24 17:00 08/30/24 17:30 08/30/24 18:00 Temperature Pulse Rate 67 71 84 Respiratory Rate Blood Pressure Pulse Oximetry 100 100 100 Oxygen Delivery Method Room Air 08/30/24 18:06 08/30/24 18:06 08/30/24 18:30 Temperature Pulse Rate 78 Respiratory Rate Blood Pressure 132/81 126/82 Pulse Oximetry 99 Oxygen Delivery Method Room Air 08/30/24 18:30 08/30/24 19:00 08/30/24 19:00 Temperature Pulse Rate 83 82 Respiratory Rate Blood Pressure 131/81 Pulse Oximetry 100 98 Oxygen Delivery Method Room Air MDM - Female Genitourinary <Carlos Stone MD - Last Filed: 09/04/24 19:01> Lab Data 08/30/24 14:33 08/30/24 14:33 Labs: Lab Results 08/30/24 08/30/24 Range/Units 14:33 16:18 WBC 12.6 H (4.5-11.0) X10^3/uL RBC 4.27 (4.0-5.2) X10^6/uL Hgb 14.4 (12.0-16.0) g/dL Hct 42.4 (36-46) % MCV 99.3 (80-100) fL MCH 33.8 (26-34) PG MCHC 34.0 (30-36) % RDW 13.3 (11.6-14.8) % Plt Count 309 (150-400) X10^3/uL Neut % (Auto) 80.0 H (50-75) % Lymph % (Auto) 13.9 L (25-40) % Orange % (Auto) 5.5 (3-14) % Eos % (Auto) 0.1 L (2-4) % Baso % (Auto) 0.5 (0-2) % Neut # (Auto) 13214 H (8736-9744) /uL Lymph # (Auto) 1700 (2524-4864) /uL Orange # (Auto) 700 (0-900) /uL Eos # (Auto) 0 (0-450) /uL Baso # (Auto) 100 (0-100) /uL Sodium 132 L (137-145) mmol/L Potassium 3.3 L (3.4-5.1) mmol/L Chloride 103 (98-107) mmol/L Carbon Dioxide 19 L (22-32) mmol/L BUN 17 (7-17) mg/dL Creatinine 1.01 (0.52-1.04) mg/dL Estimated GFR > 60 (>60) mL/min BUN/Creatinine Ratio 16.8 (6-22) Glucose 99 (70-100) mg/dL Calcium 9.2 (8.4-10.2) mg/dL Total Bilirubin 0.6 (0.2-1.3) mg/dL AST 140 H (14-36) IU/L ALT 296 H (<35) IU/L Alkaline Phosphatase 44 (38-126) U/L Total Protein 6.6 (6.3-8.2) g/dL Albumin 4.2 (3.5-5.0) g/dL Globulin 2.4 (1.7-4.1) g/dL Albumin/Globulin Ratio 1.8 (1.0-2.8) Serum , Qual Negative (Negative) Urine Color [place]ice Urine Appearance Sl cloudy Urine pH 6.0 (4.5-8.0) Ur Specific [place] 1.010 (1.000-1.035) Urine Protein Negative (Negative) Urine Glucose (UA) Negative (Negative) g/dL Urine Ketones 1+ H (NEGATIVE) Urine Occult Blood 3+ H (Negative) Urine Nitrate Negative (Negative) Urine Bilirubin Negative (NEGATIVE) Urine Urobilinogen 1.0 (0.2) E.U./dL Ur Leukocyte Esterase Trace H (NEGATIVE) Urine RBC 30-100/hpf H (0-5/HPF) Urine WBC 1-5/hpf (0-5/HPF) Ur Squamous Epith Cells 0-1 /hpf (0-5/HPF) Urine Bacteria Few (2-10) H (None) Urine Mucus 1+ H (Negative) Ur Culture Indicated? Cult not indicated Vol Urine Centrifuged 10ml (spun) Imaging Data CT scan - abdomen/pelvis: Radiologist's Impression: [address] [address] [address] Scan Report Signed Patient: Irina Florian MR#: [id number] : 1980 Acct:[id number] Age/Sex: 44 / F Date of Service: 08/30/24 Loc: ED Accession Number: [id number] Procedure: CT kidney ureter bladder (KUB) Ordering Provider: Carlos Stone MD PROCEDURE: CT KIDNEY URETER BLADDER (KUB) INDICATIONS: Flank pain TECHNIQUE: Axial sections were acquired from the lung bases to the pubic symphysis. Coronal and sagittal reformats were performed. For radiation dose reduction, the following was used: automated exposure control, adjustment of mA and/or kV according to patient size. COMPARISON: None. FINDINGS: Image quality: Diagnostic Lower chest: Basal atelectasis. Normal heart size. Liver: No contour deforming mass. Solid organs otherwise not well assessed without IV contrast Gallbladder and biliary system: Absent, nondilated Pancreas: No ductal dilation Spleen: Nonenlarged Adrenals: No discrete nodules Kidneys: Moderate left ureteral and perinephric fat stranding. [id number] hydroureteronephrosis. 4 x 3 mm left UVJ stone is present. No contour deforming mass. No right hydronephrosis Vessels and lymph nodes: No abdominal aortic aneurysm or pathologic lymph nodes by size criteria Bowel and peritoneum: No evidence of small bowel obstruction. No pathologic ascites. Body wall: Unremarkable Pelvis: Bladder is unremarkable. Reproductive organs unremarkable on limited CT evaluation Bones: No acute or suspicious osseous finding. There are mild degenerative changes. IMPRESSION: 4 x 3 mm left UVJ stone with mild to moderate upstream hydroureteronephrosis. Please note there is a moderate degree of edema around the left proximal ureter and kidney, correlate with urinalysis for superimposed infection. Differential also includes forniceal rupture. Other findings above on this noncontrast CT. Dictated by: Dustin Conner M.D. on 08/30/2024 at 14:57 Approved by: Dustin Conner M.D. on 08/30/2024 at 15:00 [facility] Narrative Medical decision making narrative: Patient is sent here from local urgent care. Patient states a friend drove her here. Patient states the past 3 days has urinary urgency frequency and dysuria with suprapubic discomfort. Walk-in clinic urinalysis but poorly noted leukocytes and sediment. They were concerned for kidney stone. Patient in no distress at this time. Patient states has had UTI in the past. No kidney stones in the past. She denies . After history and exam Toradol CBC CMP urinalysis test CT KUB MDM Medical records reviewed: No recent visits here for this complaint Differential considered: Includes but not limited to kidney stone pyelonephritis UTI appendicitis Lab Test results independently reviewed as above. Pertinent findings: WBC 12.6 hemoglobin 14.4- sodium 132 potassium 3.3 BUN 17 creatinine 1.01 Independently reviewed EKG none indicated Imaging studies independently reviewed: CT KUB 4 x 3 mm left UVJ stone with hydroureteronephrosis. Edema proximal ureter and kidney Consultations: 5:38 p.m.. We have been paging [facility] on-call urology for us for over 2 hours. No call back. I spoke with Dr. Mendez, urology at [facility], he has not on-call for our group. However he suggests if we can not get a hold of anybody than admit patient overnight in the ER and then await for morning urology are traditional regular urology services to be consulted. Patient does not need urgent lithotripsy or stent right now. Labs are reassuring. Treatments: Toradol Zofran normal saline Levaquin Re-evaluations: Updated patient results at 4:00 p.m.. Pain is controlled however awaiting call back from Urology for disposition given possible infection with kidney stone. 6:20 p.m.. Updated patient we are still waiting for urology services to call back, [facility]. She will like to be staying in the emergency department here tonight Discussion: Diagnosis: Ureteral stone pyelonephritis 6:[address] Stone: Sign out to Dr. Hermosillo, will have to keep the patient overnight until morning/tomorrow for are regular urology providers/services can be consulted, [facility] urology is on-call today and tomorrow. We are still trying to call for consult. <Elena Hermosillo MD - Last Filed: 08/31/24 05:46> Lab Data Labs: Lab Results 08/30/24 08/30/24 Range/Units 14:33 16:18 WBC 12.6 H (4.5-11.0) X10^3/uL RBC 4.27 (4.0-5.2) X10^6/uL Hgb 14.4 (12.0-16.0) g/dL Hct 42.4 (36-46) % MCV 99.3 (80-100) fL MCH 33.8 (26-34) PG MCHC 34.0 (30-36) % RDW 13.3 (11.6-14.8) % Plt Count 309 (150-400) X10^3/uL Neut % (Auto) 80.0 H (50-75) % Lymph % (Auto) 13.9 L (25-40) % Orange % (Auto) 5.5 (3-14) % Eos % (Auto) 0.1 L (2-4) % Baso % (Auto) 0.5 (0-2) % Neut # (Auto) 05515 H (6156-5485) /uL Lymph # (Auto) 1700 (1558-8958) /uL Orange # (Auto) 700 (0-900) /uL Eos # (Auto) 0 (0-450) /uL Baso # (Auto) 100 (0-100) /uL Sodium 132 L (137-145) mmol/L Potassium 3.3 L (3.4-5.1) mmol/L Chloride 103 (98-107) mmol/L Carbon Dioxide 19 L (22-32) mmol/L BUN 17 (7-17) mg/dL Creatinine 1.01 (0.52-1.04) mg/dL Estimated GFR > 60 (>60) mL/min BUN/Creatinine Ratio 16.8 (6-22) Glucose 99 (70-100) mg/dL Calcium 9.2 (8.4-10.2) mg/dL Total Bilirubin 0.6 (0.2-1.3) mg/dL AST 140 H (14-36) IU/L ALT 296 H (<35) IU/L Alkaline Phosphatase 44 (38-126) U/L Total Protein 6.6 (6.3-8.2) g/dL Albumin 4.2 (3.5-5.0) g/dL Globulin 2.4 (1.7-4.1) g/dL Albumin/Globulin Ratio 1.8 (1.0-2.8) Serum , Qual Negative (Negative) Urine Color [place] Urine Appearance Sl cloudy Urine pH 6.0 (4.5-8.0) Ur Specific [place] 1.010 (1.000-1.035) Urine Protein Negative (Negative) Urine Glucose (UA) Negative (Negative) g/dL Urine Ketones 1+ H (NEGATIVE) Urine Occult Blood 3+ H (Negative) Urine Nitrate Negative (Negative) Urine Bilirubin Negative (NEGATIVE) Urine Urobilinogen 1.0 (0.2) E.U./dL Ur Leukocyte Esterase Trace H (NEGATIVE) Urine RBC 30-100/hpf H (0-5/HPF) Urine WBC 1-5/hpf (0-5/HPF) Ur Squamous Epith Cells 0-1 /hpf (0-5/HPF) Urine Bacteria Few (2-10) H (None) Urine Mucus 1+ H (Negative) Ur Culture Indicated? Cult not indicated Vol Urine Centrifuged 10ml (spun) MDM Narrative Medical decision making narrative: Patient is sent here from local urgent care. Patient states a friend drove her here. Patient states the past 3 days has urinary urgency frequency and dysuria with suprapubic discomfort. Walk-in clinic urinalysis but poorly noted leukocytes and sediment. They were concerned for kidney stone. Patient in no distress at this time. Patient states has had UTI in the past. No kidney stones in the past. She denies . After history and exam Toradol CBC CMP urinalysis test CT KUB MDM Medical records reviewed: No recent visits here for this complaint Differential considered: Includes but not limited to kidney stone pyelonephritis UTI appendicitis Lab Test results independently reviewed as above. Pertinent findings: WBC 12.6 hemoglobin 14.4- sodium 132 potassium 3.3 BUN 17 creatinine 1.01 Independently reviewed EKG none indicated Imaging studies independently reviewed: CT KUB 4 x 3 mm left UVJ stone with hydroureteronephrosis. Edema proximal ureter and kidney Consultations: 5:38 p.m.. We have been paging [facility] on-call urology for us for over 2 hours. No call back. I spoke with Dr. Mendez, urology at [facility], he has not on-call for our group. However he suggests if we can not get a hold of anybody than admit patient overnight in the ER and then await for morning urology are traditional regular urology services to be consulted. Patient does not need urgent lithotripsy or stent right now. Labs are reassuring. Treatments: Toradol Zofran normal saline Levaquin Re-evaluations: Updated patient results at 4:00 p.m.. Pain is controlled however awaiting call back from Urology for disposition given possible infection with kidney stone. 6:20 p.m.. Updated patient we are still waiting for urology services to call back, [facility]. She will like to be staying in the emergency department here citlaly Discussion: Diagnosis: Ureteral stone pyelonephritis 6:[address] Stone: Sign out to Dr. Hermosillo, will have to keep the patient overnight until morning/tomorrow for are regular urology providers/services can be consulted, [facility] urology is on-call today and tomorrow. We are still trying to call for consult. Dr. Hermosillo -care of patient is signed out to me by daytime physician. Independent review of patient and chart performed by myself. Despite numerous attempts to contact [facility] urology we have not received a single call back for consult. Patient reassessed, resting comfortably in bed. She states that her pain is well controlled. She was requesting to go home and follow up outpatient with Urology. I reconsulted with Dr. Mendez of [facility] urology. Patient only has a few bacteria in her urine without any obvious signs of infection or pyelonephritis. Patient can be prophylactically covered with Levaquin and since she was well enough to request going home she should be able to follow up on an outpatient basis. Pain medications, nausea medications, Flomax, antibiotics sent to pharmacy of choice. Patient was given strict ED return precautions as well as urology follow up resources. Discharge Plan Departure Patient Disposition: Home Clinical Impression: Left renal stone Instructions: DI for Kidney Stones Activity Restrictions/Additional Instructions: Your CT scan shows that you have a left-sided kidney stone with some swelling behind your left kidney. There is a small amount of bacteria in your urine, but no signs of overwhelming infection. I spoke to [facility] Urology and they would like to follow up with you in your clinic. Your blood work today showed that you have a mild elevation in your liver function, this seems to has been gradually increasing over the last 4-5 years. Prescriptions: New oxycodone-acetaminophen 5-325 mg tablet 1 tab PO TID PRN (Reason: pain) Qty: 14 0RF tamsulosin [Flomax] 0.4 mg capsule 0.4 mg PO DAILY Qty: 30 0RF ondansetron 4 mg tablet,disintegrating 4 mg PO Q8H PRN (Reason: nausea and vomiting) Qty: 30 0RF levofloxacin 750 mg tablet 750 mg PO DAILY Qty: 10 0RF No Action medroxyprogesterone 150 MG/1 ML suspension 150 mg IM [id number] Qty: 0 amlodipine 2.5 mg tablet 2.5 mg PO DAILY dicyclomine 10 mg capsule 10 mg PO DAILY PRN cetirizine 10 mg tablet 10 mg PO DAILY PRN (Reason: Allergy Symptoms) Qty: 90 3RF oxycodone-acetaminophen [Percocet] 5-325 mg tablet 1 tab PO TID PRN (Reason: pain) Qty: 12 0RF ketorolac 10 mg tablet 10 mg PO TID PRN (Reason: pain) Qty: 14 0RF lidocaine 5 % adhesive patch,medicated 1 patch topical DAILY PRN (Reason: pain) Qty: 15 0RF Rx Instructions: leave on most painful area for up to 12 hrs mometasone 50 mcg/actuation spray,non-aerosol 2 spray NASAL DAILY Qty: 17 3RF ondansetron 4 mg tablet,disintegrating 4 mg PO Q6H PRN (Reason: nausea and vomiting) Qty: 60 0RF multivitamin Tablet 1 tab PO DAILY cyclobenzaprine 10 mg tablet 10 mg PO TID PRN (Reason: muscle spasm) Qty: 20 0RF topiramate 25 mg tablet 50 mg PO QPM Patient Comments: patient states usually takes meds around noon nortriptyline 75 mg capsule 75 mg PO BEDTIME lurasidone 40 mg tablet 40 mg PO DAILY famotidine 20 mg tablet 20 mg PO BEDTIME Ibsrela 50 mg tablet 50 mg PO .PRN zolpidem 5 mg tablet 5 mg PO BEDTIME PRN (Reason: insomnia) Patient Comments: TAKE 1 TABLET BY MOUTH AT BEDTIME NEEDED FOR INSOMNIA divalproex 250 mg tablet,delayed release (DR/EC) 250 mg PO DAILY divalproex 500 mg tablet,delayed release (DR/EC) 500 mg PO DAILY clonidine HCl 0.2 mg tablet 0.2 mg PO BEDTIME atomoxetine 40 mg capsule 40 mg PO DAILY Patient Comments: TAKE 1 CAPSULE BY MOUTH ONCE DAILY Referrals: Mario Mendez MD [Non-Staff] - Miscellaneous,MD Anthony [Primary Care Provider] - Stand Alone Forms: Patient Portal/API/Survey
[2024-08-30 14:49] LABS: Add Manual Diff / Slide Review NO; Basophils Absolute Auto 100 /uL (0-100); Basophils Percent Auto 0.5 % (0-2); Eosinophils Absolute Auto 0 /uL (0-450); Eosinophils Percent Auto 0.1 % (2-4); Hematocrit 42.4 % (36-46); Hemoglobin 14.4 g/dL (12.0-16.0); Lymphocytes Absolute Auto 1700 /uL (1100-4500); Lymphocytes Percent Auto 13.9 % (25-40); Mean Corpuscular Hemoglobin 33.8 PG (26-34); Mean Corpuscular Volume 99.3 fL (80-100); Monocytes Absolute Auto 700 /uL (0-900); Monocytes Percent Auto 5.5 % (3-14); Neutrophils Absolute Auto 10100 /uL (1500-7000); Platelet Count 309 X10^3/uL (150-400); Red Blood Cell Count 4.27 X10^6/uL (4.0-5.2); Red Cell Distribution Width 13.3 % (11.6-14.8); White Blood Cell Count 12.6 X10^3/uL (4.5-11.0)
[2024-08-30] MEDS: KETOROLAC 30 MG/ML VIAL 15 MG IV (14:51)
[2024-08-30] MEDS: ONDANSETRON 4 MG/2 ML INJ IV (14:51)
[2024-08-30 15:02] LABS: Pregnancy Test Serum,Qual Negative (Negative)
[2024-08-30 15:03] LABS: Alanine Aminotransferase 296 IU/L (<35); Albumin 4.2 g/dL (3.5-5.0); Albumin Globulin Ratio 1.8 (1.0-2.8); Alkaline Phosphatase 44 U/L (38-126); Aspartate Aminotransferase 140 IU/L (14-36); BUN Creatinine Ratio 16.8 (6-22); Bilirubin Total 0.6 mg/dL (0.2-1.3); Blood Urea Nitrogen 17 mg/dL (7-17); Calcium 9.2 mg/dL (8.4-10.2); Carbon Dioxide 19 mmol/L (22-32); Chloride 103 mmol/L (98-107); Estimated Glomerular Filt Rate > 60 mL/min (>60); Globulin 2.4 g/dL (1.7-4.1); Glucose 99 mg/dL (70-100); HEMOLYSIS 30 (0-50); Potassium 3.3 mmol/L (3.4-5.1); Sodium 132 mmol/L (137-145); Total Protein 6.6 g/dL (6.3-8.2)
[2024-08-30 16:27] LABS: Appearance Urine UA SL CLOUDY; Bilirubin Urine UA NEGATIVE (NEGATIVE); Glucose Urine UA NEGATIVE (Negative); Ketones Urine UA 1+ (NEGATIVE); Leukocyte Esterase Urine UA TRACE (NEGATIVE); Nitrite Urine UA NEGATIVE (Negative); Occult Blood Urine UA 3+ (Negative); Protein Urine UA NEGATIVE (Negative)
[2024-08-30 16:28] LABS: Color Urine UA Amber
[2024-08-30] MEDS: levoFLOXacin 750 MG/150 ML PIGGYBACK 100 MG IV (16:37)
[2024-08-30 16:41] LABS: Bacteria Urine Few (2-10); Culture Indicated Urine Cult Not Indicated; Mucus Urine 1+ (Negative); RBC Urine 30-100/HPF (0-5/HPF); Squamous Epithelial Cell Urine 0-1 /HPF (0-5/HPF); Urine Volume 10mL (spun); WBC Urine 1-5/HPF (0-5/HPF)
[2024-08-30] MEDS: TAMSULOSIN 0.4 MG CAPSULE PO (20:14)
[2024-08-30] MEDS: levoFLOXacin 250 MG TABLET 750 MG PO (20:14)
[2024-08-30] MEDS: OXYCODONE/APAP 5/325 PREPACK 1 BOTTLE MISC (20:14)
== END 2024-08-30 20:36 | disposition home or self-care (01) ==
PROVIDERS: Emergency Provider Emergency Medicine; Family Provider Registered Nurse
DX: N20.0 Calculus of kidney (principal)
CPT/HCPCS: 36415; 74176; 80053; 81001; 84703; 85025; 87040; 96365; 96366; 96375; 99284; J1885; J1956; J2405

== ENCOUNTER 2025-01-09 08:08 | Emergency (ER) | payer OTHER, SELFPAY ==
[2022-11-19 11:41] VITALS: BMI 31.6
[2025-01-09] VITALS (8 sets, daily range): BP systolic 133–138; BP diastolic 86; PULSE 86–107; RESP 18; TEMP 36.8–36.9; O2SAT 98–100; BMI 20.6
--- NOTE | 2025-01-09 09:15 | ED_ITS ---
HPI - Abdominal Pain General Chief Complaint: Abdominal Pain Stated Complaint: stomach pain Time Seen by Provider: 01/09/25 08:58 Source: patient Mode of arrival: Ambulatory History of Present Illness HPI narrative: 44-year-old female history of irritable bowel syndrome chronic pain presents with 5 days of epigastric pain nonbilious nonbloody vomit that she attributes to after eating a cheese cake that fell on the floor was seen 2 days ago at [facility] ER with a negative workup including lab work and CT scan. Patient was discharged with Levsin Phenergan and Zofran but she is back today stating that she is no better in symptomatic at this she is convinced that she has a parasite and wants to have it out. Patient said she had sent a stool sample to the urgent Care but they had lost a sample and she is upset and crying in the room. Other than what is stated 14 point review of system is negative. Related Data Home Medications Medication Instructions Recorded Confirmed medroxyprogesterone 150 mg/mL 150 mg IM [id number] ##0 03/07/11 11/04/20 intramuscular suspension topiramate 25 mg tablet 50 mg PO QPM 05/10/19 11/04/20 multivitamin 1 tab PO DAILY 05/18/19 11/04/20 amlodipine 2.5 mg tablet 2.5 mg PO DAILY 11/06/20 dicyclomine 10 mg capsule 10 mg PO DAILY PRN 11/06/20 atomoxetine 40 mg capsule 40 mg PO DAILY 03/05/23 clonidine HCl 0.2 mg tablet 0.2 mg PO BEDTIME 03/05/23 divalproex 250 mg tablet,delayed 250 mg PO DAILY 03/05/23 release divalproex 500 mg tablet,delayed 500 mg PO DAILY 03/05/23 release famotidine 20 mg tablet 20 mg PO BEDTIME 03/05/23 lurasidone 40 mg tablet 40 mg PO DAILY 03/05/23 nortriptyline 75 mg capsule 75 mg PO BEDTIME 03/05/23 tenapanor 50 mg tablet (Ibsrela) 50 mg PO .PRN 03/05/23 zolpidem 5 mg tablet 5 mg PO BEDTIME PRN insomnia 03/05/23 Previous Rx's Medication Instructions Recorded oxycodone-acetaminophen 5 mg-325 1 tab PO TID PRN pain #12 tabs 10/21/20 mg tablet (Percocet) ketorolac 10 mg tablet 10 mg PO TID PRN pain #14 tabs 11/04/20 lidocaine 5 % topical patch 1 patch topical DAILY PRN pain #15 11/04/20 ea mometasone 50 mcg/actuation nasal 2 spray intranasal DAILY #17 grams 11/04/20 spray ondansetron 4 mg disintegrating 4 mg PO Q6H PRN nausea and 11/04/20 tablet vomiting #60 tabs cyclobenzaprine 10 mg tablet 10 mg PO TID PRN muscle spasm #20 03/21/21 tabs cetirizine 10 mg tablet 10 mg PO DAILY PRN Allergy 06/09/21 Symptoms #90 tabs levofloxacin 750 mg tablet 750 mg PO DAILY #10 tabs 08/30/24 ondansetron 4 mg disintegrating 4 mg PO Q8H PRN nausea and 08/30/24 tablet vomiting #30 tabs oxycodone-acetaminophen 5 mg-325 1 tab PO TID PRN pain #14 tabs 08/30/24 mg tablet tamsulosin 0.4 mg capsule (Flomax) 0.4 mg PO DAILY #30 caps 08/30/24 nitrofurantoin 100 mg PO BID #10 caps 01/09/25 monohydrate/macrocrystals 100 mg capsule (Macrobid) potassium chloride 10 mEq 40 meq (4 x 10 mEq) PO DAILY #12 01/09/25 capsule,extended release caps Allergies Allergy/AdvReac Type Severity Reaction Status Date / Time red dye Allergy Verified 03/05/23 16:01 Review of Systems Review of Systems ROS Unobtainable: All systems reviewed & are unremarkable except as noted in HPI and below Patient History Medical History (Updated 01/09/25 @ 13:19 by Evaristo Philippe DO) Paresthesia of upper extremity Cervicogenic headache Herniated nucleus pulposus with myelopathy, thoracic No significant medical problems Surgical History History of appendectomy Family History Unknown No pertinent family history Social History household members: family Smoking Status: Former smoker Smoking Status: Former smoker alcohol intake frequency: a few times a week Exam Narrative Exam Narrative: GENERAL: [] year old patient appears stated age. Well-developed patient, in mild distress. HEAD: Atraumatic. Normocephalic. EYES: Pupils equal round and reactive. Extraocular motions intact. No scleral icterus. No injection or drainage. NECK: Trachea midline. Non tender CARDIOVASCULAR: Regular rate and rhythm without murmurs, gallops, or rubs. RESPIRATORY: Clear to auscultation. Breath sounds equal bilaterally. No wheezes, rales, or rhonchi. GASTROINTESTINAL: Abdomen soft, non-tender, nondistended. EXTREMITIES: No edema or joint tenderness. BACK: Nontender without deformity or crepitance. No flank tenderness. NEURO: AOx3. SKIN: No rash or erythema of visible areas Initial Vital Signs Initial Vital Signs: Vital Signs Temperature 98.3 F 01/09/25 08:20 Pulse Rate 107 H 01/09/25 08:20 Respiratory Rate 18 01/09/25 08:20 Blood Pressure 133/86 01/09/25 08:20 Pulse Oximetry 98 01/09/25 08:20 Oxygen Delivery Method Room Air 01/09/25 08:20 Course Orders Ordered: ED Orders 01/09/25 09:30 Complete Blood Count AUTO DIFF Stat Comprehensive Metabolic Panel Stat Lipase Stat Discontinued Medications Diphenhydramine HCl (Diphenhydramine 50 Mg/Ml Vial) 50 mg IV NOW ONE Stop: 01/09/25 09:23 Last Admin: 01/09/25 09:34 Dose: 50 mg Documented By: Droperidol (Droperidol 2.5 Mg/Ml Vial) 2.5 mg IV NOW ONE Stop: 01/09/25 09:23 Last Admin: 01/09/25 09:34 Dose: 2.5 mg Documented By: Sodium Chloride (Normal Saline 0.9%) 1,000 mls @ 1,000 mls/hr IV BOLUS ONE Stop: 01/09/25 10:14 Last Infusion: 01/09/25 11:09 Dose: Infused Documented By: Admin: 01/09/25 09:35 Dose: 1,000 mls/hr Documented By: Nitrofurantoin Macrocrystals (Nitrofurantoin Er 100 Mg Capsule) 100 mg PO NOW ONE Stop: 01/09/25 13:27 Last Admin: 01/09/25 13:48 Dose: 100 mg Documented By: CORRINA Potassium Chloride (Potassium Chloride 20 Meq Tab) 40 meq PO NOW ONE Stop: 01/09/25 13:27 Last Admin: 01/09/25 13:49 Dose: 40 meq Documented By: CORRINA Vital Signs Vital signs: Vital Signs - 8 hr 01/09/25 10:30 01/09/25 11:00 01/09/25 11:30 Temperature Pulse Rate 89 94 H 90 Respiratory Rate Blood Pressure Pulse Oximetry 100 100 100 Oxygen Delivery Method 01/09/25 12:00 01/09/25 13:47 Temperature 98.4 F Pulse Rate 88 98 H Respiratory Rate 18 Blood Pressure 138/86 Pulse Oximetry 100 100 Oxygen Delivery Method Room Air MDM - Abdominal Pain Lab Data 01/09/25 09:30 01/09/25 09:30 Labs: Lab Results 01/09/25 01/09/25 Range/Units 09:22 09:30 WBC 7.7 (4.5-11.0) X10^3/uL RBC 4.15 (4.0-5.2) X10^6/uL Hgb 14.2 (12.0-16.0) g/dL Hct 41.5 (36-46) % MCV 100.2 H (80-100) fL MCH 34.1 H (26-34) PG MCHC 34.1 (30-36) % RDW 13.6 (11.6-14.8) % Plt Count 268 (150-400) X10^3/uL Neut % (Auto) 64.1 (50-75) % Lymph % (Auto) 24.8 L (25-40) % [place] % (Auto) 9.6 (3-14) % Eos % (Auto) 0.5 L (2-4) % Baso % (Auto) 1.0 (0-2) % Neut # (Auto) 4900 (8406-8259) /uL Lymph # (Auto) 1900 (6164-2981) /uL [place] # (Auto) 700 (0-900) /uL Eos # (Auto) 0 (0-450) /uL Baso # (Auto) 100 (0-100) /uL Sodium 139 (137-145) mmol/L Potassium 3.0 L (3.4-5.1) mmol/L Chloride 107 (98-107) mmol/L Carbon Dioxide 23 (22-32) mmol/L BUN 5 L (7-17) mg/dL Creatinine 0.74 (0.52-1.04) mg/dL Estimated GFR > 60 (>60) mL/min BUN/Creatinine Ratio 6.8 (6-22) Glucose 102 H (70-100) mg/dL Calcium 9.4 (8.4-10.2) mg/dL Total Bilirubin 0.8 (0.2-1.3) mg/dL AST 27 (14-36) IU/L ALT 28 (<35) IU/L Alkaline Phosphatase 54 (38-126) U/L Total Protein 6.6 (6.3-8.2) g/dL Albumin 4.2 (3.5-5.0) g/dL Globulin 2.4 (1.7-4.1) g/dL Albumin/Globulin Ratio 1.8 (1.0-2.8) Lipase 78 (23-300) U/L Urine RBC 1-5/hpf D (0-5/HPF) Urine WBC 5-10/hpf H (0-5/HPF) Ur Squamous Epith Cells 5-10 /hpf H (0-5/HPF) Amorphous Sediment 1+ Urine Bacteria Moderate (10-30) H (None) Urine Mucus 2+ H (Negative) Ur Culture Indicated? Specimen cultured Vol Urine Centrifuged 10ml (spun) Point of care testing: Point of Care Testing Test Results Negative Urine Dip Bedside Urine Glucose Negative Bedside Urine Bilirubin - Negative Bedside Urine Ketone + 15 Urine Specific [place] 1.020 Bedside Urine Occult Blood - Negative Bedside Urine pH 6.0 Bedside Urine Protein +/- 15 Bedside Urine Urobilinogen - Negative Bedside Urine Nitrite - Negative Bedside Urine Leukocytes - Negative Esterase Imaging Data CT scan - abdomen/pelvis: Radiologist's Impression: [address] [address] [address] Scan Report Signed Patient: Irina Florian MR#: [id number] : 1980 Acct:[id number] Age/Sex: 44 / F Date of Service: 01/09/25 Loc: ED Accession Number: [id number] Procedure: CT abdomen pelvis w con Ordering Provider: Evaristo Philippe D.O. PROCEDURE: CT ABDOMEN PELVIS W CON INDICATIONS: abd pain TECHNIQUE: After the administration of intravenous contrast, axial sections acquired from the lung bases to the pubic symphysis. Coronal and sagittal reformats were performed. For radiation dose reduction, the following was used: automated exposure control, adjustment of mA and/or kV according to patient size. COMPARISON: None. FINDINGS: Image quality: Diagnostic. Lower Chest: No significant findings. ABDOMEN: Liver: No solid mass. Small hemangiomas present. Gallbladder: Absent. Biliary ducts: No biliary dilation. Pancreas: No ductal dilation. Spleen: Size is within normal limits. Adrenal Glands: No adrenal nodules. Kidneys and Ureters: No hydronephrosis. No solid mass. No complex renal cystic lesion which requires follow up. Stomach and Bowel: Normal colonic caliber, without significant wall thickening. Appendectomy. No diverticular disease. Prominent gastric rugae and wall striation of the stomach. Peritoneum: No abnormal intraperitoneal fluid. No free air. Ventral Wall: No significant ventral hernia. Abdominal Nodes: No retroperitoneal or mesenteric adenopathy by size criteria. Vessels: Aorta and inferior vena cava are normal in size. PELVIS: Pelvic Organs: Symmetric ovaries. Bladder: No bladder wall thickening, accounting for underdistention. Pelvic Nodes: No enlarged lymph nodes. Miscellaneous: No inguinal hernias are seen. Bones: No aggressive osseous abnormality. IMPRESSION: Prominent gastric rugae and wall stratification of the stomach, which may indicate gastritis. Alternatively, this could be artifact of underdistention. Otherwise, no acute abnormality Dictated by: Froilan Leblanc M.D. on 01/09/2025 at 10:01 Approved by: Froilan Leblanc M.D. on 01/09/2025 at 10:05 [facility] Narrative Medical decision making narrative: All labwork, imaging, ekg, RN note, triage note, medication list, old records from previous visits, vital signs all reviewed. Pt given potassium, macrobid, benadryl, NS 1L bolus. D/c home on macrobid, benadryl. Differential dx pancreatitis, gastritis, gerd, cholecystitis, constipation. Discharge Plan Departure Patient Disposition: Home Clinical Impression: Acute hypokalemia UTI (urinary tract infection) Qualifiers: Urinary tract infection type: acute cystitis Hematuria presence: without hematuria Qualified Code(s): N30.00 - Acute cystitis without hematuria Gastritis Qualifiers: Gastritis type: unspecified gastritis Chronicity: acute Gastritis bleeding: w ithout bleeding Qualified Code(s): K29.00 - Acute gastritis without bleeding Instructions: Hypokalemia Activity Restrictions/Additional Instructions: Take medications as directed return with new or worsening symptoms. Prescriptions: New nitrofurantoin monohyd/m-cryst [Macrobid] 100 mg capsule 100 mg PO BID Qty: 10 0RF Rx Instructions: must administer with a meal/food potassium chloride 10 mEq capsule, extended release 40 meq PO DAILY Qty: 12 0RF No Action medroxyprogesterone 150 MG/1 ML suspension 150 mg IM [id number] Qty: 0 amlodipine 2.5 mg tablet 2.5 mg PO DAILY dicyclomine 10 mg capsule 10 mg PO DAILY PRN cetirizine 10 mg tablet 10 mg PO DAILY PRN (Reason: Allergy Symptoms) Qty: 90 3RF oxycodone-acetaminophen [Percocet] 5-325 mg tablet 1 tab PO TID PRN (Reason: pain) Qty: 12 0RF ketorolac 10 mg tablet 10 mg PO TID PRN (Reason: pain) Qty: 14 0RF lidocaine 5 % adhesive patch,medicated 1 patch topical DAILY PRN (Reason: pain) Qty: 15 0RF Rx Instructions: leave on most painful area for up to 12 hrs mometasone 50 mcg/actuation spray,non-aerosol 2 spray NASAL DAILY Qty: 17 3RF ondansetron 4 mg tablet,disintegrating 4 mg PO Q6H PRN (Reason: nausea and vomiting) Qty: 60 0RF multivitamin Tablet 1 tab PO DAILY oxycodone-acetaminophen 5-325 mg tablet 1 tab PO TID PRN (Reason: pain) Qty: 14 0RF tamsulosin [Flomax] 0.4 mg capsule 0.4 mg PO DAILY Qty: 30 0RF ondansetron 4 mg tablet,disintegrating 4 mg PO Q8H PRN (Reason: nausea and vomiting) Qty: 30 0RF levofloxacin 750 mg tablet 750 mg PO DAILY Qty: 10 0RF cyclobenzaprine 10 mg tablet 10 mg PO TID PRN (Reason: muscle spasm) Qty: 20 0RF topiramate 25 mg tablet 50 mg PO QPM Patient Comments: patient states usually takes meds around noon nortriptyline 75 mg capsule 75 mg PO BEDTIME lurasidone 40 mg tablet 40 mg PO DAILY famotidine 20 mg tablet 20 mg PO BEDTIME Ibsrela 50 mg tablet 50 mg PO .PRN zolpidem 5 mg tablet 5 mg PO BEDTIME PRN (Reason: insomnia) Patient Comments: TAKE 1 TABLET BY MOUTH AT BEDTIME NEEDED FOR INSOMNIA divalproex 250 mg tablet,delayed release (DR/EC) 250 mg PO DAILY divalproex 500 mg tablet,delayed release (DR/EC) 500 mg PO DAILY clonidine HCl 0.2 mg tablet 0.2 mg PO BEDTIME atomoxetine 40 mg capsule 40 mg PO DAILY Patient Comments: TAKE 1 CAPSULE BY MOUTH ONCE DAILY Stand Alone Forms: Patient Portal/API/Survey
[2025-01-09] MEDS: diphenhydrAMINE 50 MG/ML VIAL IV (09:34)
[2025-01-09] MEDS: droPERidol 2.5 MG/ML VIAL IV (09:34)
[2025-01-09] MEDS: SODIUM CHLORIDE 0.9% 1,000 ML 1000 ML IV (09:35)
[2025-01-09 09:38] LABS: Add Manual Diff / Slide Review NO; Basophils Absolute Auto 100 /uL (0-100); Eosinophils Absolute Auto 0 /uL (0-450); Eosinophils Percent Auto 0.5 % (2-4); Hematocrit 41.5 % (36-46); Hemoglobin 14.2 g/dL (12.0-16.0); Lymphocytes Absolute Auto 1900 /uL (1100-4500); Lymphocytes Percent Auto 24.8 % (25-40); Mean Corpuscular HGB Conc 34.1 % (30-36); Mean Corpuscular Hemoglobin 34.1 PG (26-34); Mean Corpuscular Volume 100.2 fL (80-100); Monocytes Absolute Auto 700 /uL (0-900); Monocytes Percent Auto 9.6 % (3-14); Neutrophils Absolute Auto 4900 /uL (1500-7000); Neutrophils Percent Auto 64.1 % (50-75); Platelet Count 268 X10^3/uL (150-400); Red Blood Cell Count 4.15 X10^6/uL (4.0-5.2); Red Cell Distribution Width 13.6 % (11.6-14.8); White Blood Cell Count 7.7 X10^3/uL (4.5-11.0)
[2025-01-09 09:44] LABS: Urine Volume 10mL (spun)
[2025-01-09 09:45] LABS: Amorphous Sediment Urine 1+; Bacteria Urine Moderate (10-30); Culture Indicated Urine Specimen Cultured; Mucus Urine 2+ (Negative); RBC Urine 1-5/HPF (0-5/HPF); Squamous Epithelial Cell Urine 5-10 /HPF (0-5/HPF); WBC Urine 5-10/HPF (0-5/HPF)
[2025-01-09 09:53] LABS: Alanine Aminotransferase 28 IU/L (<35); Albumin 4.2 g/dL (3.5-5.0); Albumin Globulin Ratio 1.8 (1.0-2.8); Alkaline Phosphatase 54 U/L (38-126); Aspartate Aminotransferase 27 IU/L (14-36); BUN Creatinine Ratio 6.8 (6-22); Bilirubin Total 0.8 mg/dL (0.2-1.3); Blood Urea Nitrogen 5 mg/dL (7-17); Calcium 9.4 mg/dL (8.4-10.2); Carbon Dioxide 23 mmol/L (22-32); Chloride 107 mmol/L (98-107); Estimated Glomerular Filt Rate > 60 mL/min (>60); Globulin 2.4 g/dL (1.7-4.1); Glucose 102 mg/dL (70-100); HEMOLYSIS < 15 (0-50); Lipase 78 U/L (23-300); Sodium 139 mmol/L (137-145); Total Protein 6.6 g/dL (6.3-8.2)
--- NOTE | 2025-01-09 12:11 | PC.NURSE ---
Pt up ambulating in [place]. Appears in NAD. Warm blankets provided.
[2025-01-09] MEDS: NITROFURANTOIN ER 100 MG CAPSULE PO (13:48)
[2025-01-09] MEDS: POTASSIUM CHLORIDE 20 MEQ TAB 40 MEQ PO (13:49)
== END 2025-01-09 14:00 | disposition home or self-care (01) ==
PROVIDERS: Emergency Provider Family Medicine; Family Provider Registered Nurse
DX: N30.00 Acute cystitis without hematuria (principal); K29.00 Acute gastritis without bleeding; E87.6 Hypokalemia
CPT/HCPCS: 36415; 74177; 80053; 81003; 81015; 81025; 83690; 85025; 87086; 96361; 96374; 96375; 99284; J1200; J1790; Q9967